=== PATIENT | female | born 1955 | race Caucasian/White ===

== ENCOUNTER 2016-10-08 09:04 | Inpatient (IN) | payer OTHER ==
[~2016-10-08] VITALS: Ht 157.5 cm; Wt 100.4 kg
--- NOTE | ~2016-10-08 | EKG ---
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 LYLE : 1955 Requested By: Jeromy Acosta Order Number: [id number] MD: Brendon Sheikh Measurements Intervals [place] Rate: 71 P: 46 [place]: 176 QRS: -46 QRSD: 107 T: -32 QT: 458 QTc: 498 Interpretive Statements Sinus rhythm Incomplete RBBB and LAFB RSR' in V1 or V2, right VCD or RVH Nonspecific T abnormalities, lateral leads Borderline prolonged QT interval Electronically Signed On 10-09-2016 13:53:27 CDT by Brendon Sheikh [email or web address] <ELECTRONICALLY SIGNED> By: Brendon Sheikh MD 10/09/16 1353 1608 1608 Brendon Sheikh MD /EPI
--- NOTE | ~2016-10-08 | EKG ---
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
--- NOTE | ~2016-10-08 | 2DMMODE ---
[facility] [employer] [address] 2 D/M-MODE ECHOCARDIOGRAM Name: TERI CRUZ Room #: 203-P [facility] IN [facility].#: [id number] Admission: 10/08/16 Attend Phys: Jeromy Acosta, Discharge: Date of : 51 Date of Service: 10/09/16 0951 Report #: [id number] THIS REPORT FOR: //name// APPROVED REPORT Study performed: 10/08/2016 15:09:03 EXAM: Comprehensive 2D, Doppler, and color-flow Echocardiogram Patient Location: Bedside Other Information Study Quality: Technically Difficult Indications Congestive Heart Failure COPD Chest Pain Hypertension/HDD 2D Dimensions RVDd: 41.99 mm LVEF(%): 56.47 (>50%) IVSd: 10.46 (7-11mm) LVOT Diam: 18.61 (18-24mm) LVDd: 67.02 mm PWd: 10.13 (7-11mm) Ascending Ao: 30.12 (22-36mm) LVDs: 46.69 (25-40mm) Aortic Root: 32.07 mm IVC: 25.00 mm Fernandze's LVEF: 56.47 % Volumes Left Atrial Volume (Systole) Single Plane 4CH: 118.32 mL Single Plane 2CH: 123.17 mL LA ESV Index: 64.00 mL/m2 Aortic Valve AoV Peak Moiz.: 1.50 m/s AO Peak Gr.: 9.03 mmHg LVOT Max P.69 mmHg LVOT Max V: 1.08 m/s DAVID Vmax: 1.96 cm2 Mitral Valve E/A Ratio: 1.7 MV Decel. Time: 202.46 ms MV E Max Moiz.: 1.73 m/s MV A Moiz.: 1.01 m/s [facility] [place] [address] 2 D/M-MODE ECHOCARDIOGRAM Name: TERI CRUZ Room #: 203-P [facility] IN M.R.#: [id number] Admission: 10/08/16 Attend Phys: Jeromy Acosta, Discharge: Date of : 51 Date of Service: 10/09/16 0951 Report #: [id number] MV PHT: 58.71 ms IVRT: 65.74 ms Pulmonary Valve PV Peak Moiz.: 1.44 m/s PV Peak Gr.: 8.30 mmHg Pulmonary Vein P Vein S: 0.51 m/s P Vein A: 0.16 m/s P Vein D: 0.67 m/s P Vein A Dur.: 69.2 msec P Vein S/D Ratio: 0.76 Tricuspid Valve TR Peak Moiz.: 4.41 m/s RAP Estimate: 15.00 mmHg TR Peak Gr.: 77.69 mmHg Left Ventricle Left ventricle is dilated. There is normal LV segmental wall motion. There is normal left ventricular wall thickness. Left ventricular systolic function is normal LVEF is 50-55%. The diastolic function is abnormal with increased pressures. Right Ventricle Right ventricle is dilated. The right ventricular systolic function is normal. Atria Left atrium is dilated. Right atrium is dilated. Aortic Valve The aortic valve is normal in structure. No aortic regurgitation is present. There is no aortic valvular stenosis. Mitral Valve Mild mitral leaflet sclerosis Moderate mitral regurgitation. No evidence of mitral valve stenosis. Tricuspid Valve The tricuspid valve is normal in structure. There is moderate tricuspid regurgitation. The right atrial pressure is estimated at 15 mmHg. Severe pulmonary hypertension with PAP estimated at 93 mmHg. Pulmonic Valve The pulmonary valve is normal in structure. Mild pulmonic regurgitation. [address] [address] 2 D/M-MODE ECHOCARDIOGRAM Name: TERI CRUZ Room #: 203-P [facility] IN .R.#: [id number] Admission: 10/08/16 Attend Phys: Jeromy Acosta, Discharge: Date of : 51 Date of Service: 10/09/16 0951 Report #: [id number] Great Vessels The aortic root is normal in size. IVC is dilated and collapses <50% with inspiration. Pericardium There is no pericardial effusion. <Conclusion> Left ventricular systolic function is normal There is normal LV segmental wall motion. LVEF 50-55%. Right ventricle is dilated. Left and right atria are dilated. The aortic valve is normal in structure. No aortic insufficiency or stenosis. Mild mitral leaflet sclerosis Moderate mitral regurgitation. There is moderate tricuspid regurgitation. The right atrial pressure is estimated at 15 mmHg. Severe pulmonary hypertension with PAP estimated at 85-90 mmHg. There is no pericardial effusion. <ELECTRONICALLY SIGNED> By: Floyd Santos MD, [facility] 10/09/1651 0 0 Floyd Santos MD, FACC /INF
[~2016-10-08 09:04] MED LIST: ADVAIR 100-501 EACH INH; ALBUTEROL INH; BUPRENORPHINE HC8 MG PO; EMBEDA 30-1.21 EACH; FLOVENT; LASIX 40 MG TAB40 M1; LOVENOX SC; NAPROSYN250 MG; NEXIUM40 MG; OXYCODONE HCL15 MG PO; PERCOCET 5-3251 EACH PO; PREDNISONE 10 M10 M1 PO; PREDNISONE 20 M20 M1; PREDNISONE50 MG PO; SINGULAIR 10 MG10 M1; SPIRIVA INH; SPIRONOLACTONE25 M1 PO; VERAPAMIL HCL120 M1 PO; XANAX XR1 MG PO; ZANAFLEX4 M1 PO; ZANTAC; ZOPENEX INH
[2016-10-08 09:08] VITALS: BP 176/93
[2016-10-08] MEDS ORDERED: MSL20MG/ML PO (09:29)
[2016-10-08] MEDS ORDERED: MORPHINE SULFAT15 M3 PO (09:30)
[2016-10-08] MEDS ORDERED: DUONEB 2.5-0.5 M3 ML INH (09:31)
[2016-10-08] MEDS ORDERED: MS CONTIN15 MG PO (09:31)
[2016-10-08] MEDS ORDERED: OXYCODONE HCL 55 MG PO (09:32)
[2016-10-08] MEDS ORDERED: ALLERGY RELIEF10 M5 PO (09:33)
[2016-10-08] MEDS ORDERED: LASIX 20 MG TAB20 MG PO (09:33)
[2016-10-08] MEDS ORDERED: HYDROCORTISONE30 G9 TOP (09:34)
[2016-10-08 09:59] LABS: ABG SAMPLE TYPE ARTERIAL; BE(vivo) 2.8 mmol/L (-2 to +3); HCO3 26.6 mmol/L (22.0-26.0); LACTATE 0.93 mmol/L (0.5-2.0); O2(CT) 13.4 mL/dL (15.0-23.0); O2Hb 89.2 % (92.0-98.0); PO2 57.8 mmHg (80.0-100.0); pH 7.463 (7.360-7.450); sO2 91.6 % (92.0-98.0); tCO2 27.8 mmol/L (24.0-30.0)
[2016-10-08 10:00] LABS: STICK SITE L.RADIAL
[2016-10-08 10:18] LABS: HEMATOCRIT 30.6 % (37.0-47.0); HEMOGLOBIN 9.9 gm/dL (12.0-15.0); MCH 24.8 pg (26.0-34.0); MCHC 32.5 g/dL (28.0-37.0); MCV 76.2 fL (80.0-100.0); PLATELET COUNT 218 thou/uL (150-400); RBC 4.01 mil/uL (4.20-5.00); RDW 16.2 % (10.5-14.5); WBC 8.1 thou/uL (4.0-11.0)
[2016-10-08 10:19] LABS: MANUAL DIFF YES
[2016-10-08 10:29] LABS: CALCIUM 8.8 mg/dL (8.5-10.1); CREATININE 1.1 mg/dL (0.6-1.0); POTASSIUM 3.7 mmol/L (3.5-5.1)
[2016-10-08 10:35] LABS: ALBUMIN 3.3 g/dL (3.4-5.0); DIRECT BILIRUBIN 0.2 mg/dL (<0.1-0.3); TOTAL BILIRUBIN 0.8 mg/dL (<0.1-1.0); TOTAL PROTEIN 7.3 g/dL (6.4-8.2)
[2016-10-08 10:35] LABS: URINE BILIRUBIN NEGATIVE (Negative); URINE BLOOD TRACE (Negative); URINE COLOR YELLOW; URINE GLUCOSE-RANDOM* NEGATIVE (Negative); URINE KETONES TRACE (Negative); URINE NITRITE NEGATIVE (Negative); URINE PROTEIN (DIPSTICK) 1+ (Negative)
[2016-10-08 10:38] LABS: ABSOLUTE NEUTROPHILS 6.6 thou/uL (1.4-8.2); PLATELET ESTIMATE NORMAL; TOTAL CELL COUNT 100
[2016-10-08 10:41] LABS: BACTERIA 1-9 Few /HPF (None Seen); CASTS None Seen /LPF (None Seen); CRYSTALS None Seen /LPF (None Seen); SQUAMOUS 0-3 Few /LPF (0-3); URINE RBC None Seen /HPF (0-2); URINE WBC 0-5 Rare /HPF (0-5)
[2016-10-08 11:13] LABS: NT-PRO BRAIN NAT PEPTIDE 14362 pg/mL (<300); TROPONIN-I < 0.04 ng/mL (<0.04-0.07)
[2016-10-08 14:48] VITALS: BP 169/79
[2016-10-08 15:10] VITALS: BP 194/109
[2016-10-08 18:26] VITALS: BP 164/83
[2016-10-08 19:34] VITALS: BP 153/92
[2016-10-09 00:03] VITALS: BP 151/72
[2016-10-09 03:20] VITALS: BP 151/70
[2016-10-09 03:38] LABS: HEMATOCRIT 31.2 % (37.0-47.0); HEMOGLOBIN 10.2 gm/dL (12.0-15.0); MCH 24.4 pg (26.0-34.0); MCHC 32.5 g/dL (28.0-37.0); PLATELET COUNT 249 thou/uL (150-400); RBC 4.16 mil/uL (4.20-5.00); RDW 16.1 % (10.5-14.5); WBC 8.6 thou/uL (4.0-11.0)
[2016-10-09 03:45] LABS: MANUAL DIFF YES
[2016-10-09 04:00] LABS: CALCIUM 8.9 mg/dL (8.5-10.1); CREATININE 1.3 mg/dL (0.6-1.0); POTASSIUM 3.9 mmol/L (3.5-5.1)
[2016-10-09 05:46] LABS: ABSOLUTE NEUTROPHILS 7.7 thou/uL (1.4-8.2); ANISOCYTOSIS 1+; HYPOCHROMASIA SLIGHT; MICROCYTES 1+; TOTAL CELL COUNT 100
[2016-10-09 09:10] VITALS: BP 142/77
[2016-10-09 12:15] VITALS: BP 118/56
[2016-10-09 17:15] VITALS: BP 122/62
[2016-10-09 19:56] VITALS: BP 110/63
[2016-10-09] MEDS ORDERED: PACERONE 200 M200 M1 PO (21:01)
[2016-10-10 04:07] VITALS: BP 130/66
[2016-10-10 08:25] VITALS: BP 91/52
[2016-10-10 12:28] VITALS: BP 103/56
[2016-10-10 16:13] VITALS: BP 106/58
[2016-10-10 19:20] VITALS: BP 93/45
[2016-10-11 03:11] LABS: HEMATOCRIT 31.1 % (37.0-47.0); HEMOGLOBIN 10.2 gm/dL (12.0-15.0); MCH 24.7 pg (26.0-34.0); MCHC 32.6 g/dL (28.0-37.0); MCV 75.7 fL (80.0-100.0); RBC 4.11 mil/uL (4.20-5.00); RDW 16.6 % (10.5-14.5); WBC 13.4 thou/uL (4.0-11.0)
[2016-10-11 03:28] LABS: ALBUMIN 3.4 g/dL (3.4-5.0); CALCIUM 8.2 mg/dL (8.5-10.1); PHOSPHORUS 5.8 mg/dL (2.5-4.9); POTASSIUM 4.1 mmol/L (3.5-5.1)
[2016-10-11 03:31] LABS: CREATININE 3.7 mg/dL (0.6-1.0)
[2016-10-11 03:45] VITALS: BP 87/52
[2016-10-11 08:12] VITALS: BP 99/63
[2016-10-11 12:16] VITALS: BP 107/56
[2016-10-11 16:41] VITALS: BP 94/53
[2016-10-11 19:17] VITALS: BP 96/46
[2016-10-12 03:22] VITALS: BP 93/47
[2016-10-12 04:17] LABS: ALBUMIN 3.5 g/dL (3.4-5.0); PHOSPHORUS 6.3 mg/dL (2.5-4.9); POTASSIUM 4.1 mmol/L (3.5-5.1)
[2016-10-12 04:22] LABS: CREATININE 4.8 mg/dL (0.6-1.0)
[2016-10-12 07:19] VITALS: BP 95/50
[2016-10-12 08:15] LABS: ABG SAMPLE TYPE ARTERIAL; BE(vivo) 1.5 mmol/L (-2 to +3); HCO3 27.9 mmol/L (22.0-26.0); O2(CT) 14.3 mL/dL (15.0-23.0); O2Hb 89.1 % (92.0-98.0); PCO2 52.2 mmHg (35.0-45.0); PO2 60.4 mmHg (80.0-100.0); pH 7.346 (7.360-7.450); sO2 89.5 % (92.0-98.0); tCO2 29.5 mmol/L (24.0-30.0)
[2016-10-12 08:16] LABS: ABG COMMENT OFF BIPAP; STICK SITE R.RADIAL
[2016-10-12] MEDS ORDERED: XANAX1 MG PO (11:11)
[2016-10-12 11:28] VITALS: BP 87/53
[2016-10-12 16:45] VITALS: BP 108/53
[2016-10-12 20:02] VITALS: BP 97/55
[2016-10-13 02:59] LABS: BASOPHILS 0.1 % (0.0-2.0); EOSINOPHILS 0.9 % (0.0-3.0); HEMATOCRIT 30.1 % (37.0-47.0); HEMOGLOBIN 9.7 gm/dL (12.0-15.0); LYMPHOCYTES 13.8 % (24.0-44.0); MCH 24.5 pg (26.0-34.0); MCHC 32.1 g/dL (28.0-37.0); MCV 76.3 fL (80.0-100.0); MONOCYTES 9.3 % (1.0-8.0); PLATELET COUNT 376 thou/uL (150-400); POLYS 75.9 % (36.0-66.0); RBC 3.94 mil/uL (4.20-5.00); RDW 16.4 % (10.5-14.5); WBC 10.5 thou/uL (4.0-11.0)
[2016-10-13 03:13] LABS: CALCIUM 8.1 mg/dL (8.5-10.1); POTASSIUM 4.3 mmol/L (3.5-5.1)
[2016-10-13 03:14] LABS: CREATININE 3.7 mg/dL (0.6-1.0)
[2016-10-13 03:17] LABS: MANUAL DIFF NO
[2016-10-13 04:00] VITALS: BP 92/52
[2016-10-13 07:45] VITALS: BP 103/60
[2016-10-13 16:54] VITALS: BP 133/113
[2016-10-13 19:52] VITALS: BP 90/43
[2016-10-14 02:42] LABS: HEMATOCRIT 27.5 % (37.0-47.0); MCH 24.7 pg (26.0-34.0); MCHC 32.8 g/dL (28.0-37.0); MCV 75.2 fL (80.0-100.0); PLATELET COUNT 344 thou/uL (150-400); RBC 3.66 mil/uL (4.20-5.00); RDW 16.6 % (10.5-14.5); WBC 9.4 thou/uL (4.0-11.0)
[2016-10-14 02:50] LABS: MANUAL DIFF YES
[2016-10-14 02:53] LABS: ALBUMIN 3.1 g/dL (3.4-5.0); CALCIUM 8.4 mg/dL (8.5-10.1); CREATININE 2.4 mg/dL (0.6-1.0); PHOSPHORUS 4.3 mg/dL (2.5-4.9); POTASSIUM 4.2 mmol/L (3.5-5.1)
[2016-10-14 03:14] LABS: ABSOLUTE NEUTROPHILS 6.2 thou/uL (1.4-8.2); PLATELET ESTIMATE NORMAL; TOTAL CELL COUNT 100
[2016-10-14 03:31] VITALS: BP 84/41
[2016-10-14 07:21] VITALS: BP 90/48
[2016-10-14 08:43] LABS: ABG SAMPLE TYPE ARTERIAL; BE(vivo) -0.1 mmol/L (-2 to +3); HCO3 25.4 mmol/L (22.0-26.0); LACTATE 1.93 mmol/L (0.5-2.0); O2(CT) 13.9 mL/dL (15.0-23.0); O2Hb 92.7 % (92.0-98.0); PCO2 45.4 mmHg (35.0-45.0); PO2 68.4 mmHg (80.0-100.0); STICK SITE L.RADIAL; pH 7.366 (7.360-7.450); sO2 93.1 % (92.0-98.0); tCO2 26.8 mmol/L (24.0-30.0)
[2016-10-14 12:08] VITALS: BP 93/35
[2016-10-14 19:38] VITALS: BP 119/54
[2016-10-15 03:25] LABS: HEMATOCRIT 30.3 % (37.0-47.0); HEMOGLOBIN 9.8 gm/dL (12.0-15.0); MCH 24.7 pg (26.0-34.0); MCHC 32.3 g/dL (28.0-37.0); MCV 76.6 fL (80.0-100.0); RBC 3.96 mil/uL (4.20-5.00); RDW 16.4 % (10.5-14.5); WBC 10.3 thou/uL (4.0-11.0)
[2016-10-15 03:30] VITALS: BP 97/42
[2016-10-15 03:35] LABS: CALCIUM 8.7 mg/dL (8.5-10.1); CREATININE 1.8 mg/dL (0.6-1.0); POTASSIUM 4.3 mmol/L (3.5-5.1)
[2016-10-15 07:25] VITALS: BP 107/50
[2016-10-15 12:00] VITALS: BP 111/52
[2016-10-15 12:33] VITALS: BP 107/50
[2016-10-15 15:40] VITALS: BP 108/70
[2016-10-15 19:30] VITALS: BP 98/47
[2016-10-16 03:30] LABS: HEMATOCRIT 28.4 % (37.0-47.0); HEMOGLOBIN 8.9 gm/dL (12.0-15.0); MCH 24.3 pg (26.0-34.0); MCHC 31.2 g/dL (28.0-37.0); MCV 77.8 fL (80.0-100.0); RBC 3.65 mil/uL (4.20-5.00); RDW 16.9 % (10.5-14.5); WBC 8.6 thou/uL (4.0-11.0)
[2016-10-16 03:41] LABS: CALCIUM 8.7 mg/dL (8.5-10.1); CREATININE 1.4 mg/dL (0.6-1.0); POTASSIUM 4.7 mmol/L (3.5-5.1)
[2016-10-16 04:10] VITALS: BP 109/59
[2016-10-16 09:00] VITALS: BP 108/47
[2016-10-16 13:25] VITALS: BP 96/42
[2016-10-16 18:00] VITALS: BP 114/51
[2016-10-16 19:18] VITALS: BP 131/67
[2016-10-17 04:24] VITALS: BP 113/63
[2016-10-17 07:20] VITALS: BP 109/52
[2016-10-17] MEDS ORDERED: MS CONTIN 60 MG60 M1 PO (07:21)
[2016-10-17] MEDS ORDERED: OXYCODONE HCL 55 MG PO (07:21)
[2016-10-17] MEDS ORDERED: ELIQUIS5 MG PO (07:21)
[2016-10-17] MEDS ORDERED: SINGULAIR 10 MG10 M1 PO (07:21)
[2016-10-17] MEDS ORDERED: PREDNISONE 20 M20 M1 PO (07:25)
[2016-10-17 08:03] VITALS: BP 107/50
== END 2016-10-17 11:45 | disposition home health service (06) | DRG 177 ==
LOC: ER 09:04 → EROBS 11:38 → 2N 11:38
PROVIDERS: Family Medicine; Hospitalist; Internal Medicine Pulmonary Disease; Nurse Practitioner
PROC: 5A09557 Assistance with Respiratory Ventilation, Greater than 96 Consecutive Hours, Continuous Positive Airway Pressure (ICD-10-PCS; principal; 2016-10-08)
DX: J69.0 Pneumonitis due to inhalation of food and vomit (principal); I50.31 Acute diastolic (congestive) heart failure; J96.00 Acute respiratory failure, unspecified whether with hypoxia or hypercapnia; N17.9 Acute kidney failure, unspecified; J44.1 Chronic obstructive pulmonary disease with (acute) exacerbation; E44.1 Mild protein-calorie malnutrition; Z68.41 Body mass index [BMI] 40.0-44.9, adult; I11.0 Hypertensive heart disease with heart failure; Z96.652 Presence of left artificial knee joint; D64.9 Anemia, unspecified; G89.29 Other chronic pain; K21.9 Gastro-esophageal reflux disease without esophagitis; G47.33 Obstructive sleep apnea (adult) (pediatric); I48.91 Unspecified atrial fibrillation; I27.2 Other secondary pulmonary hypertension; D72.829 Elevated white blood cell count, unspecified; I95.9 Hypotension, unspecified; E66.9 Obesity, unspecified; Z83.3 Family history of diabetes mellitus; Z82.49 Family history of ischemic heart disease and other diseases of the circulatory system; Z99.81 Dependence on supplemental oxygen; Z90.49 Acquired absence of other specified parts of digestive tract; Z90.710 Acquired absence of both cervix and uterus; Z88.8 Allergy status to other drugs, medicaments and biological substances; Z88.2 Allergy status to sulfonamides
CPT/HCPCS: 10081

== ENCOUNTER → 2016-10-23 | Outpatient (CLI) | payer OTHER ==
[~2016-10-23] MED LIST changes: +ALLERGY RELIEF10 M5 PO; +DUONEB 2.5-0.5 M3 ML INH; +ELIQUIS5 MG PO; +HYDROCORTISONE30 G9 TOP; +LASIX 20 MG TAB20 MG PO; +MORPHINE SULFAT15 M3 PO; +MS CONTIN 60 MG60 M1 PO; +MS CONTIN15 MG PO; +MSL20MG/ML PO; +OXYCODONE HCL 55 MG PO; +PACERONE 200 M200 M1 PO; +PREDNISONE 20 M20 M1 PO; +SINGULAIR 10 MG10 M1 PO; +XANAX1 MG PO
== END ==
LOC: RAD 10:57
DX: J90 Pleural effusion, not elsewhere classified (principal); R06.02 Shortness of breath

== ENCOUNTER 2016-10-27 15:28 | Emergency (ER) | payer OTHER ==
[~2016-10-27] VITALS: Ht 157.5 cm; Wt 88.5 kg
--- NOTE | ~2016-10-27 | EKG ---
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: Mohan TEJEDA : 1955 Requested By: Klaus Carrera Order Number: [id number] MD: Floyd Santos Measurements Intervals [place] Rate: 60 P: 57 [place]: 163 QRS: -35 QRSD: 113 T: 37 QT: 499 QTc: 499 Interpretive Statements Sinus rhythm Atrial premature complexes Probable left atrial enlargement Incomplete right bundle branch block Borderline prolonged QT interval Compared to ECG 10/08/2016 16:08:08 Atrial premature complex(es) now present Electronically Signed On 10-28-2016 8:33:02 CDT by Floyd Santos [email or web address] <ELECTRONICALLY SIGNED> By: Floyd Santos MD, [facility] 10/28/16 0833 10 10 Floyd Santos MD, [facility] /EPI
[2016-10-27 17:01] LABS: HEMATOCRIT 34.2 % (37.0-47.0); HEMOGLOBIN 10.9 gm/dL (12.0-15.0); MCH 23.8 pg (26.0-34.0); MCHC 31.9 g/dL (28.0-37.0); MCV 74.6 fL (80.0-100.0); PLATELET COUNT 232 thou/uL (150-400); RBC 4.59 mil/uL (4.20-5.00); RDW 17.3 % (10.5-14.5); WBC 11.8 thou/uL (4.0-11.0)
[2016-10-27 17:02] LABS: MANUAL DIFF YES
[2016-10-27 17:19] LABS: URINE BILIRUBIN NEGATIVE (Negative); URINE BLOOD NEGATIVE (Negative); URINE COLOR YELLOW; URINE GLUCOSE-RANDOM* NEGATIVE (Negative); URINE KETONES NEGATIVE (Negative); URINE LEUKOCYTES-REFLEX NEGATIVE (Negative); URINE PROTEIN (DIPSTICK) 1+ (Negative); URINE UROBILINOGEN 0.2 E.U./dl (0.2-1.0)
[2016-10-27 17:37] LABS: CASTS None Seen /LPF (None Seen); CRYSTALS None Seen /LPF (None Seen); SQUAMOUS 0-3 Few /LPF (0-3); URINE RBC None Seen /HPF (0-2); URINE WBC-REFLEX None Seen /HPF (0-5)
[2016-10-27 17:40] LABS: ABSOLUTE NEUTROPHILS 9.7 thou/uL (1.4-8.2); ANISOCYTOSIS 1+; HYPOCHROMASIA 1+; MICROCYTES 1+; POIKILOCYTOSIS 1+; TOTAL CELL COUNT 100
[2016-10-27 17:41] LABS: OVALOCYTES 1+; POLYCHROMASIA OCCASIONAL
[2016-10-27 17:46] LABS: CREATININE 1.2 mg/dL (0.6-1.0); POTASSIUM 4.5 mmol/L (3.5-5.1)
[2016-10-27 17:47] LABS: ALBUMIN 3.5 g/dL (3.4-5.0); TOTAL BILIRUBIN 0.5 mg/dL (<0.1-1.0); TOTAL PROTEIN 7.2 g/dL (6.4-8.2)
[2016-10-27] MEDS ORDERED: REGLAN 10 MG TA10 MG PO (18:03)
[2016-10-27] MEDS ORDERED: NORCO 5-325 TA1 EACH PO (18:25)
== END 2016-10-27 18:30 | disposition home or self-care (01) ==
LOC: ER 15:28
PROVIDERS: Physician Assistant
DX: R11.2 Nausea with vomiting, unspecified (principal); G89.29 Other chronic pain; I12.9 Hypertensive chronic kidney disease with stage 1 through stage 4 chronic kidney disease, or unspecified chronic kidney disease; N18.9 Chronic kidney disease, unspecified; J44.9 Chronic obstructive pulmonary disease, unspecified; Z96.652 Presence of left artificial knee joint; Z90.49 Acquired absence of other specified parts of digestive tract; Z90.710 Acquired absence of both cervix and uterus; Z88.2 Allergy status to sulfonamides

== ENCOUNTER → 2016-10-30 | Outpatient (CLI) | payer OTHER ==
[~2016-10-30] MED LIST changes: +NORCO 5-325 TA1 EACH PO; +REGLAN 10 MG TA10 MG PO
== END ==
LOC: SLEEPLAB 16:05
DX: G47.33 Obstructive sleep apnea (adult) (pediatric) (principal)

== ENCOUNTER → 2016-11-06 | Outpatient (CLI) | payer OTHER | LOC: RAD 09:22 | DX: R06.02 Shortness of breath (principal); R06.09 Other forms of dyspnea ==

== ENCOUNTER → 2016-12-07 | Outpatient (CLI) | payer OTHER | LOC: SLEEPLAB 11:05 | DX: G47.33 Obstructive sleep apnea (adult) (pediatric) (principal) ==

== ENCOUNTER 2016-12-29 16:00 | Emergency (ER) | payer OTHER ==
[~2016-12-29] VITALS: Ht 157.5 cm; Wt 81.7 kg
[2016-12-29] MEDS ORDERED: PACERONE 200 M200 M1 PO (16:48)
[2016-12-29] MEDS ORDERED: OXYCODONE HCL 55 MG PO (16:56)
== END 2016-12-29 17:15 | disposition home or self-care (01) ==
LOC: ER 16:00
DX: M25.572 Pain in left ankle and joints of left foot (principal); I10 Essential (primary) hypertension; J44.9 Chronic obstructive pulmonary disease, unspecified; Z90.710 Acquired absence of both cervix and uterus; Z88.2 Allergy status to sulfonamides

== ENCOUNTER → 2017-01-14 | Outpatient (CLI) | payer OTHER | LOC: CAT 01-07 10:05 | DX: S82.892K Other fracture of left lower leg, subsequent encounter for closed fracture with nonunion (principal); X58.XXXD Exposure to other specified factors, subsequent encounter; Y93.89 Activity, other specified; Y92.89 Other specified places as the place of occurrence of the external cause; Y99.8 Other external cause status ==

== ENCOUNTER 2017-05-20 14:50 | Emergency (ER) | payer OTHER ==
[~2017-05-20] VITALS: Ht 157.5 cm; Wt 81.7 kg
--- NOTE | ~2017-05-20 | EKG ---
[place] [address] [facility] [place] [place] [address] ELECTROCARDIOGRAM REPORT Name: TERI CRUZ 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: [facility] : 1955 Requested By: Karishma Jurado Order Number: [id number] MD: Floyd Santos Measurements Intervals [place] Rate: 63 P: 33 [place]: 149 QRS: -16 QRSD: 114 T: 22 QT: 476 QTc: 488 Interpretive Statements Sinus rhythm Probable left atrial enlargement Borderline prolonged QT interval Compared to ECG 10/27/2016 16:11:24 Atrial premature complex(es) no longer present anterior T wave abnormality less prominent Electronically Signed On 05-20-2017 17:24:07 EXCHANGE OPERATOR by Floyd Santos [email or web address] <ELECTRONICALLY SIGNED> By: Floyd Santos MD, [facility] 05/20/17 1724 1549 1549 Floyd Santos MD, [facility] /EPI
[2017-05-20] MEDS ORDERED: CARDIZEM CD180 MG PO (15:33)
[2017-05-20 15:45] LABS: ABSOLUTE NEUTROPHILS 3.9 thou/uL (1.4-8.2); BASOPHILS 1.1 % (0.0-2.0); EOSINOPHILS 6.3 % (0.0-3.0); HEMATOCRIT 37.1 % (37.0-47.0); HEMOGLOBIN 12.2 gm/dL (12.0-15.0); LYMPHOCYTES 26.4 % (24.0-44.0); MCH 25.4 pg (26.0-34.0); MCV 76.9 fL (80.0-100.0); MONOCYTES 9.8 % (1.0-8.0); PLATELET COUNT 231 thou/uL (150-400); POLYS 56.4 % (36.0-66.0); RBC 4.82 mil/uL (4.20-5.00); RDW 16.6 % (10.5-14.5)
[2017-05-20 15:53] LABS: ANION GAP 8 mmol/L (7-16); BUN 25 mg/dL (7-18); CALCIUM 9.3 mg/dL (8.5-10.1); CHLORIDE 103 mmol/L (98-107); CO2 26 mmol/L (21-32); CREATININE 1.4 mg/dL (0.6-1.0); GLUCOSE 83 mg/dL (74-106); POTASSIUM 4.4 mmol/L (3.5-5.1); SODIUM 137 mmol/L (136-145)
[2017-05-20 16:03] LABS: SGOT 20 U/L (15-37); SGPT 35 U/L (30-65); TOTAL BILIRUBIN 0.3 mg/dL (<0.1-1.0); TOTAL PROTEIN 7.8 g/dL (6.4-8.2); TROPONIN-I < 0.04 ng/mL (<0.06)
[2017-05-20] MEDS ORDERED: HYDROCODONE-AP1 EAC6 PO (16:41)
[2017-05-20 16:58] VITALS: BP 153/66
[2017-09-22] MEDS ORDERED: SINGULAIR 10 MG10 M1 PO (10:10)
[2017-09-22] MEDS ORDERED: NYAMYC15 GM TOP (10:10)
[2017-09-22] MEDS ORDERED: ALBUTEROL2.5 MG/31 INH (10:11)
[2017-09-22] MEDS ORDERED: NEXIUM40 MG PO (10:11)
[2017-09-22] MEDS ORDERED: FLONASE 0.05%50 MCG NASAL (10:11)
[2017-09-22] MEDS ORDERED: LISINOPRIL10 MG PO (10:11)
[2017-09-22] MEDS ORDERED: MORPHINE SULFAT15 M3 PO (11:29)
[2017-09-22] MEDS ORDERED: MS CONTIN15 MG PO (11:33)
[2017-10-20] MEDS ORDERED: MORPHINE SULFAT15 M3 PO (09:50)
[2017-10-20] MEDS ORDERED: MS CONTIN15 MG PO (11:12)
[2017-11-17] MEDS ORDERED: MS CONTIN15 MG PO (10:42)
[2017-11-17] MEDS ORDERED: PANTOPRAZOLE SO20 MG PO (10:54)
[2017-12-02] MEDS ORDERED: ELIQUIS5 MG PO (09:23)
[2017-12-02] MEDS ORDERED: CARDIZEM60 MG PO (12:02)
[2017-12-06] MEDS ORDERED: MIRALAX17 GM PO (13:19)
[2017-12-06] MEDS ORDERED: COZAAR 25 MG TA25 M1 PO (13:19)
[2017-12-06] MEDS ORDERED: CARAFATE 11 GM/10 M1 PO (13:20)
[2017-12-15] MEDS ORDERED: CARAFATE 1 GM TA1 G1 PO (09:00)
[2017-12-15] MEDS ORDERED: MIRALAX17 GM PO (09:01)
[2017-12-15] MEDS ORDERED: COZAAR 25 MG TA25 M1 PO (09:02)
[2017-12-15] MEDS ORDERED: MS CONTIN15 MG PO (09:13)
[2018-02-02] MEDS ORDERED: PACERONE 200 M200 M1 PO (10:40)
[2018-02-02] MEDS ORDERED: XANAX1 MG PO (10:41)
[2018-02-02] MEDS ORDERED: MS CONTIN15 MG PO (11:01)
== END 2017-05-20 17:01 | disposition home or self-care (01) ==
LOC: ER 14:50
PROVIDERS: Physician Assistant
DX: G89.29 Other chronic pain (principal); M25.572 Pain in left ankle and joints of left foot; R60.0 Localized edema; I10 Essential (primary) hypertension; F17.210 Nicotine dependence, cigarettes, uncomplicated; J44.9 Chronic obstructive pulmonary disease, unspecified; Z90.49 Acquired absence of other specified parts of digestive tract; Z88.2 Allergy status to sulfonamides

== ENCOUNTER 2017-08-28 23:32 | Emergency (ER) | payer OTHER ==
[~2017-08-28] VITALS: Ht 157.5 cm; Wt 84.8 kg
--- NOTE | ~2017-08-28 | EKG ---
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
[~2017-08-28 23:32] MED LIST changes: +CARDIZEM CD180 MG PO; +HYDROCODONE-AP1 EAC6 PO
[2017-08-29 01:12] LABS: ABSOLUTE NEUTROPHILS 6.3 thou/uL (1.4-8.2); BASOPHILS 0.7 % (0.0-2.0); EOSINOPHILS 1.4 % (0.0-3.0); HEMATOCRIT 41.6 % (37.0-47.0); HEMOGLOBIN 13.9 gm/dL (12.0-15.0); MCH 25.9 pg (26.0-34.0); MCHC 33.4 g/dL (28.0-37.0); MCV 77.4 fL (80.0-100.0); MONOCYTES 10.4 % (1.0-8.0); PLATELET COUNT 174 thou/uL (150-400); POLYS 68.5 % (36.0-66.0); RBC 5.37 mil/uL (4.20-5.00); RDW 15.8 % (10.5-14.5); WBC 9.1 thou/uL (4.0-11.0)
[2017-08-29 01:18] LABS: ANION GAP 7 mmol/L (7-16); BUN 18 mg/dL (7-18); CHLORIDE 103 mmol/L (98-107); CO2 27 mmol/L (21-32); CREATININE 1.5 mg/dL (0.6-1.0); GLUCOSE 91 mg/dL (74-106); POTASSIUM 4.4 mmol/L (3.5-5.1); SODIUM 137 mmol/L (136-145)
[2017-08-29 01:28] LABS: TROPONIN-I < 0.04 ng/mL (<0.06)
[2017-08-29] MEDS ORDERED: LEVAQUIN 750 M750 MG PO (04:56)
[2017-08-29] MEDS ORDERED: GUAIFEN-CODEINE10 ML PO (05:00)
== END 2017-08-29 05:46 | disposition home or self-care (01) ==
LOC: ER 23:32
PROVIDERS: Emergency Medicine
DX: H66.91 Otitis media, unspecified, right ear (principal); J18.9 Pneumonia, unspecified organism; J02.9 Acute pharyngitis, unspecified; R10.9 Unspecified abdominal pain; F17.210 Nicotine dependence, cigarettes, uncomplicated; J44.9 Chronic obstructive pulmonary disease, unspecified; I48.91 Unspecified atrial fibrillation; I11.0 Hypertensive heart disease with heart failure; I50.9 Heart failure, unspecified; Z90.89 Acquired absence of other organs; Z88.1 Allergy status to other antibiotic agents

== ENCOUNTER → 2017-09-22 | Outpatient (CLI) | payer OTHER ==
[~2017-09-22] VITALS: Ht 157.5 cm; Wt 88.5 kg
[~2017-09-22] MED LIST changes: +ALBUTEROL2.5 MG/31 INH; +FLONASE 0.05%50 MCG NASAL; +GUAIFEN-CODEINE10 ML PO; +LEVAQUIN 750 M750 MG PO; +LISINOPRIL10 MG PO; +NEXIUM40 MG PO; +NYAMYC15 GM TOP
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
[2017-09-22 10:09] VITALS: BP 132/102
== END ==
LOC: PAIN 09-01 11:10
DX: I10 Essential (primary) hypertension (principal); M19.071 Primary osteoarthritis, right ankle and foot; M17.11 Unilateral primary osteoarthritis, right knee; E11.9 Type 2 diabetes mellitus without complications; J44.9 Chronic obstructive pulmonary disease, unspecified; I48.91 Unspecified atrial fibrillation; M54.5 Low back pain; M25.572 Pain in left ankle and joints of left foot; K21.9 Gastro-esophageal reflux disease without esophagitis; M79.7 Fibromyalgia; G43.909 Migraine, unspecified, not intractable, without status migrainosus; F41.9 Anxiety disorder, unspecified; G47.30 Sleep apnea, unspecified; J30.9 Allergic rhinitis, unspecified; M25.562 Pain in left knee; M25.561 Pain in right knee

== ENCOUNTER → 2017-10-20 | Outpatient (CLI) | payer OTHER ==
[~2017-10-20] VITALS: Ht 157.5 cm; Wt 96.2 kg
--- NOTE | ~2017-10-20 | HPC ---
[facility] [place]in [place] [address] PAIN MANAGEMENT CONSULTATION Name: TERI CRUZ Room #: REG RONY Gabriella#: [id number] Admission: 10/20/17 Attend Phys: Jeromy Foley DO Discharge: Date of : 51 Report #: [id number] THIS REPORT FOR: //name// CC: Jeromy Singh Referring Physician DATE OF SERVICE: 10/20/2017 CHIEF COMPLAINT: Low back pain, left knee pain, left ankle pain, right knee pain. HISTORY OF PRESENT ILLNESS: As you know, the patient is a 62-year-old female who is referred to the pain clinic for a temporary opioid management prior to surgery. The patient has undergone ablation of her ectopic pacemaker leading to atrial fibrillation. Assuming this is successful, the patient will be coming off of her anticoagulants to begin surgical options. We have been requested to provide analgesia for the next month to month and a half awaiting surgery. The patient was seen by my partner, Dr. Rajinder Rajput, who provided the patient MS Contin 15 mg twice a day for baseline pain control. She returns today in followup visit for medication management. Despite the use of medication, pain intensity is exactly the same as it was, 10/19. She returns. When questioned about medication, states that it does provide benefit though her pain impact score would indicate no improvement. She returns requesting refill of medications for the next month. ALLERGIES: SULFA. CURRENT MEDICATIONS: MS Contin 15 mg twice a day, omeprazole 40 mg per day, lisinopril 10 mg per day, fluticasone 2 sprays each nostril per day, albuterol 2 puffs q.4 hours p.r.n., montelukast sodium 10 mg per day, nystatin powder apply topically as needed, diltiazem 180 mg twice a day, amiodarone 200 mg 2 tabs twice a day, Eliquis 5 mg per day, alprazolam 1 mg 3 times a day, ipratropium bromide 4 times a day, Advair 100/50 twice a day. SOCIAL HISTORY: The patient smokes, reports she discontinued yesterday. Denies IV or illicit drug use. Denies any chronic alcohol use. She is unemployed and on disability, and has been so for 10 years. She is unaccompanied today. IMAGING: There is no new imaging available. PQRS: The patient has osteoarthritis of the bilateral knees and low back. No rheumatoid arthritis. She is a fall risk, but has not had a fall in the last 3 months. She is on blood thinners in the form of Eliquis. She is treated for hypertension. She has not been on opioids for greater than 6 weeks. She has moderate potential for opioid abuse. Functional [place] [address] PAIN MANAGEMENT CONSULTATION Name: TERI CRUZ Room #: REG RONY Quiroz#: [id number] Admission: 10/20/17 Attend Phys: Jeromy Foley DO Discharge: Date of : 51 Report #: [id number] impact score of 42/70, moderate to severe. PHYSICAL EXAMINATION: VITAL SIGNS: Blood pressure 156/89, pulse is 75, respiratory rate 22, unlabored. The patient is 99% on room air. Height 5 feet 2 inches tall, weight 212 pounds, BMI calculated 38.8. GENERAL: Well-developed, well-nourished, well-hydrated, class 3, morbidly obese 62-year-old female, appears older than stated age, smells of tobacco smoke, somewhat disheveled today. HEENT: Normocephalic, atraumatic. Pupils equal, round, reactive to light. Extraocular muscles are intact. EXTREMITIES: Show no clubbing, no cyanosis, no edema. MUSCULOSKELETAL: The patient has difficulty with standing and walking about the room. She has pain located in the left foot with definitive gross changes to the ankle itself. Well-healed surgical scar over the medial portion and lateral portion of that ankle. There is a scar over the left knee, which appears to be weeping and excoriated. ASSESSMENT: 1. Chronic left ankle pain. 2. Bilateral knee pain secondary to osteoarthritis. 3. Chronic low back pain. PLAN: 1. The patient has returned today in followup visit requesting refill on medications provided by Dr. Luis Rajput in the form of MS Contin 15 mg twice a day. The patient was started on this medication for pain level that she was indicating as 7/10. Interestingly, the patient returns today on these medications indicating pain score of 7/10. This would indicate to this physician that these medications are not very effective for pain control. Certainly, escalating doses would not make a clinical sense at this point as the patient will be undergoing surgery hopefully in the next month and weaning off these medications entirely. We have recommended continuation of MS Contin at this dosing regimen for the next month with plans to wean off the medication once surgeries are initiated. 2. We applaud the patient for discontinuing smoking yesterday. She will need to remain a nonsmoker throughout treatment with [facility] as this is required to maintain opioid management. 3. The patient will return to our clinic in 30 days, see Dr. Luis Rajput for continuation of medication therapy and hopeful weaning of opioids soon after surgery has been initiated. By: 1010 1403 Jeromy Foley DO /clemencia
[2017-10-20 09:35] VITALS: BP 156/89
== END ==
LOC: PAIN 07:47
DX: M17.4 Other bilateral secondary osteoarthritis of knee (principal); G89.29 Other chronic pain; M25.572 Pain in left ankle and joints of left foot; M54.5 Low back pain

== ENCOUNTER → 2017-11-24 | Outpatient (CLI) | payer OTHER ==
[~2017-11-24] MED LIST changes: +PANTOPRAZOLE SO20 MG PO
== END ==
LOC: RAD 11:23
DX: J44.9 Chronic obstructive pulmonary disease, unspecified (principal); I51.7 Cardiomegaly; J98.4 Other disorders of lung; R91.1 Solitary pulmonary nodule; Z96.652 Presence of left artificial knee joint

== ENCOUNTER 2018-01-04 09:10 | Inpatient (IN) | payer OTHER ==
[2018-01-04] VITALS (11 sets, daily range): BP systolic 153–194; BP diastolic 92–122
[~2018-01-04] VITALS: Ht 157.5 cm; Wt 98.0 kg
--- NOTE | ~2018-01-04 | EKG ---
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
--- NOTE | ~2018-01-04 | EKG ---
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
--- NOTE | ~2018-01-04 | HC ---
[facility] [place] [address] CONSULTATION Name: TERI CRUZ Room #: 206-P [facility] IN M.R.#: [id number] Admission: 01/04/18 Attend Phys: Bart Gil MD Discharge: 01/08/18 Date of : 51 Report #: [id number] THIS REPORT FOR: //name// CC: Bart Singh REASON FOR CONSULTATION: Elevated creatinine. REASON FOR PRESENTATION: Headache and hiccups. HISTORY OF PRESENT ILLNESS: A 62-year-old with extensive past medical history including and not limited to hypertension, AFib. She presented on the with the above-mentioned symptoms and was found to have blood pressure reading of 191/120. 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 She had extensive past medical and cardiac history including and not limited to atrial fibrillation, pulmonary hypertension, COPD. At one point, she was admitted to [facility] and after a procedure, she went into acute kidney injury and required what was described as hemodialysis. On presentation to the Emergency Room, a few days ago, she had a creatinine of 1.5, this had risen to 3.4. I am being consulted to manage her acute kidney injury. PAST MEDICAL HISTORY: 1. Remote history of hypertension, atrial fibrillation, COPD, chronic pain, left knee replacement, right rotator cuff surgery, open heart surgery, left ankle surgery, left knee surgery, bilateral carpal tunnel surgeries. 2. Hysterectomy. 3. COPD. 4. 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 5. Appendectomy. FAMILY HISTORY: Diabetes mellitus and hypertension. SOCIAL HISTORY: Denies drug or alcohol abuse. Lives with her friend. MEDICATIONS: 1. Eliquis. 2. Amiodarone. 3. Diltiazem. 4. Albuterol. 5. Pantoprazole. 6. Sucralfate. REVIEW OF SYSTEMS: GENERAL: No fever or chills. CARDIOVASCULAR: No chest pain or palpitation. PULMONARY: No cough or hemoptysis. [facility] [address] [place] [address] CONSULTATION Name: TERI CRUZ CANDACE Room #: 206-[facility] IN M.R.#: [id number] Admission: 01/04/18 Attend Phys: Bart Gil MD Discharge: 01/08/18 Date of : 51 Report #: [id number] GASTROINTESTINAL: As per the history of present illness. GENITOURINARY: No frequency, no urgency. MUSCULOSKELETAL: As per the history of present illness: PHYSICAL EXAMINATION: GENERAL: She is alert, oriented, in no apparent distress. VITAL SIGNS: Pulse rate 72, blood pressure 102/47. HEAD AND NECK: No jugular venous distention, no bruit, no thyromegaly. CHEST: Decreased air entry bilaterally. CARDIOVASCULAR: No rub detected. ABDOMEN: Soft, nontender with no hepatosplenomegaly. LOWER EXTREMITIES: No edema. Scars from her previous surgeries. LABORATORY DATA: Reviewed. Low MCV notes down her CBC. Sodium is 132, BUN is 33, creatinine is 1.9. Renal ultrasound, normal. Chest x-ray with no acute abnormality. ASSESSMENT, IMPRESSION AND PLAN: 1. Acute kidney injury due to aggressive blood pressure reduction. 2. Hypertensive urgency. 3. Atrial fibrillation. 4. Issues with noncompliance. 5. Chronic obstructive pulmonary disease. 6. Remote history of acute kidney injury, requiring dialysis. 7. From the renal perspective, her creatinine is back, trending down now. Her acute kidney injury was due to aggressive blood pressure reduction. 8. Discontinue IV fluids. 9. Watch blood pressure. 10. Ideally should be on hydrochlorothiazide-containing regimen, and angiotensin converting enzyme inhibitor or an angiotensin receptor alisa; an agent for her atrial fibrillation including calcium channel alisa or beta alisa, we will defer the management of those medications to her primary team and Cardiology. <ELECTRONICALLY SIGNED> By: Keyon Rainey MD 01/22/18 0557 0902 1202 Keyon Rainey MD /nt
--- NOTE | ~2018-01-04 | 2DMMODE ---
[facility] [address] [place] [address] 2 D/M-MODE ECHOCARDIOGRAM Name: TERI CRUZ Room #: 206-P ADM IN M.R.#: [id number] Admission: 01/04/18 Attend Phys: Bart Gil MD Discharge: Date of : 51 Date of Service: 01/06/18 1436 Report #: [id number] THIS REPORT FOR: //name// APPROVED REPORT Study performed: 01/06/2018 13:48:21 EXAM: Comprehensive 2D, Doppler, and color-flow Echocardiogram Patient Location: Echo lab Room #: [facility] Status: routine BSA: 1.92 HR: 95 bpm BP: 98/59 mmHg Rhythm: Irregular Other Information Study Quality: Adequate Indications Atrial Fibrillation Hx: CHF, Afib, HTN, COPD 2D Dimensions RVDd: 39.71 mm IVSd: 13.22 (7-11mm) LVOT Diam: 19.74 (18-24mm) LVDd: 52.34 mm PWd: 13.13 (7-11mm) Ascending Ao: 33.62 (22-36mm) LVDs: 31.62 (25-40mm) Aortic Root: 34.70 mm Volumes Left Atrial Volume (Systole) Single Plane 4CH: 87.97 mL Single Plane 2CH: 73.76 mL LA ESV Index: 44.00 mL/m2 Aortic Valve AoV Peak Moiz.: 1.77 m/s AO Peak Gr.: 12.53 mmHg LVOT Max P.88 mmHg LVOT Max V: 1.49 m/s DAVID Vmax: 2.57 cm2 Mitral Valve MV Decel. Time: 262.96 ms MV E Max Moiz.: 1.18 m/s [facility] [address] [place] [address] 2 D/M-MODE ECHOCARDIOGRAM Name: TERI CRUZ [facility] Room #: [address] [place] [address] IN ..#: [id number] Admission: 01/04/18 Attend Phys: Bart Gil MD Discharge: Date of : 51 Date of Service: 01/06/18 1436 Report #: [id number] IVRT: 62.28 ms Pulmonary Valve PV Peak Moiz.: 0.97 m/s PV Peak Gr.: 3.79 mmHg Tricuspid Valve TR Peak Moiz.: 2.94 m/s TR Peak Gr.: 34.53 mmHg Left Ventricle The left ventricle is normal size. There is normal LV segmental wall motion. Mild concentric left ventricular hypertrophy. Left ventricular systolic function is normal. LVEF is 60-65%. This study is not technically sufficient to allow evaluation of the LV diastolic function. Right Ventricle The right ventricle is normal size. The right ventricular systolic function is normal. Atria Left atrium is moderately dilated. Right atrium is mildly dilated. Aortic Valve The aortic valve is normal in structure. No aortic regurgitation is present. There is no aortic valvular stenosis. Mitral Valve Mitral valve leaflets are mildly thickened. Mild to moderate mitral regurgitation. No evidence of mitral valve stenosis. Tricuspid Valve The tricuspid valve is normal in structure. Mild to moderate tricuspid regurgitation. Estimated PAP is 35mmHg plus the right atrial pressure. Pulmonic Valve The pulmonary valve is normal in structure. Trace pulmonic regurgitation. Great Vessels The aortic root is normal in size. The ascending aorta is normal in size. IVC is not well visualized. Pericardium [address] [address] 2 D/M-MODE ECHOCARDIOGRAM Name: TERI CRUZ Room #: 206-P ADM IN M.R.#: [id number] Admission: 01/04/18 Attend Phys: Bart Gil MD Discharge: Date of : 51 Date of Service: 01/06/18 1436 Report #: [id number] There is no pericardial effusion. <Conclusion> The left ventricle is normal size. Mild concentric left ventricular hypertrophy. Left ventricular systolic function is normal. The right ventricle is normal size. Left atrium is moderately dilated. Right atrium is mildly dilated. The aortic valve is normal in structure. Mild to moderate mitral regurgitation. Mild to moderate tricuspid regurgitation. Estimated PAP is 35mmHg plus the right atrial pressure. <ELECTRONICALLY SIGNED> By: Carl Jones MD 01/06/18 1436 1436 143 Carl Jones MD /INF
--- NOTE | ~2018-01-04 | EKG ---
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
[~2018-01-04 09:10] MED LIST changes: +CARAFATE 1 GM TA1 G1 PO; +CARAFATE 11 GM/10 M1 PO; +CARDIZEM60 MG PO; +COZAAR 25 MG TA25 M1 PO; +MIRALAX17 GM PO
[2018-01-04] MEDS ORDERED: ELIQUIS5 MG PO (09:25)
[2018-01-04] MEDS ORDERED: XANAX1 MG PO (09:25)
[2018-01-04 10:20] LABS: ABSOLUTE NEUTROPHILS 7.6 thou/uL (1.4-8.2); EOSINOPHILS 0.4 % (0.0-3.0); HEMATOCRIT 44.1 % (37.0-47.0); HEMOGLOBIN 14.7 gm/dL (12.0-15.0); MCH 25.6 pg (26.0-34.0); MCHC 33.3 g/dL (28.0-37.0); MCV 76.8 fL (80.0-100.0); MONOCYTES 6.7 % (1.0-8.0); PLATELET COUNT 261 thou/uL (150-400); POLYS 79.9 % (36.0-66.0); RBC 5.74 mil/uL (4.20-5.00); RDW 16.1 % (10.5-14.5); WBC 9.5 thou/uL (4.0-11.0)
[2018-01-04 10:26] LABS: ANION GAP 9 mmol/L (7-16); BUN 16 mg/dL (7-18); CALCIUM 10.1 mg/dL (8.5-10.1); CHLORIDE 99 mmol/L (98-107); CO2 27 mmol/L (21-32); CREATININE 1.5 mg/dL (0.6-1.0); GLUCOSE 105 mg/dL (74-106); POTASSIUM 3.9 mmol/L (3.5-5.1); SODIUM 135 mmol/L (136-145)
[2018-01-04 10:35] LABS: ALBUMIN 4.5 g/dL (3.4-5.0); LIPASE 78 U/L (73-393); SGOT 9 U/L (15-37); SGPT 12 U/L (30-65); TOTAL BILIRUBIN 0.5 mg/dL (<0.1-1.0); TOTAL PROTEIN 8.5 g/dL (6.4-8.2); TROPONIN-I <0.06 ng/mL (<0.06)
[2018-01-04 11:49] LABS: URINE BILIRUBIN NEGATIVE (Negative); URINE BLOOD 2+ (Negative); URINE CLARITY CLEAR; URINE COLOR YELLOW; URINE GLUCOSE-RANDOM* NEGATIVE (Negative); URINE KETONES TRACE (Negative); URINE LEUKOCYTES-REFLEX NEGATIVE (Negative); URINE NITRITE-REFLEX NEGATIVE (Negative); URINE PROTEIN (DIPSTICK) 1+ (Negative); URINE SPECIFIC GRAVITY 1.025 (1.005-1.035); URINE UROBILINOGEN 0.2 E.U./dl (0.2-1.0)
[2018-01-04 11:57] LABS: CASTS None Seen /LPF (None Seen); SQUAMOUS >10 Many /LPF (0-3)
[2018-01-04 11:58] LABS: BACTERIA-REFLEX 1-9 Few /HPF (None Seen); CRYSTALS None Seen /LPF (None Seen); URINE RBC 3-10 Few /HPF (0-2); URINE WBC-REFLEX 0-5 Rare /HPF (0-5)
[2018-01-05 00:36] VITALS: BP 146/98
[2018-01-05 04:59] VITALS: BP 117/64; BP 134/77
[2018-01-05 07:22] VITALS: BP 83/57
[2018-01-05 10:57] VITALS: BP 93/56
[2018-01-05 15:44] VITALS: BP 89/54
[2018-01-05 20:40] VITALS: BP 106/60
[2018-01-06 04:05] VITALS: BP 90/54
[2018-01-06 06:09] LABS: CALCIUM 8.6 mg/dL (8.5-10.1); POTASSIUM 4.3 mmol/L (3.5-5.1)
[2018-01-06 06:12] LABS: CREATININE 3.4 mg/dL (0.6-1.0)
[2018-01-06 08:25] VITALS: BP 93/58
[2018-01-06 11:09] LABS: URINE BILIRUBIN NEGATIVE (Negative); URINE BLOOD 2+ (Negative); URINE CLARITY CLOUDY; URINE COLOR YELLOW; URINE GLUCOSE-RANDOM* NEGATIVE (Negative); URINE KETONES NEGATIVE (Negative); URINE LEUKOCYTES 1+ (Negative); URINE NITRITE POSITIVE (Negative); URINE PROTEIN (DIPSTICK) NEGATIVE (Negative); URINE SPECIFIC GRAVITY >= 1.030 (1.005-1.035); URINE UROBILINOGEN 0.2 E.U./dl (0.2-1.0)
[2018-01-06 11:50] LABS: SQUAMOUS >10 Many /LPF (0-3); URINE WBC 6-15 Few /HPF (0-5)
[2018-01-06 11:51] LABS: CASTS None Seen /LPF (None Seen); CRYSTALS None Seen /LPF (None Seen); URINE RBC 0-2 Rare /HPF (0-2)
[2018-01-06 12:15] VITALS: BP 98/59
[2018-01-06 16:05] VITALS: BP 105/59
[2018-01-06 19:25] VITALS: BP 99/54
[2018-01-07] VITALS (7 sets, daily range): BP systolic 98–136; BP diastolic 45–69
[2018-01-07 04:51] LABS: ABSOLUTE NEUTROPHILS 3.2 thou/uL (1.4-8.2); BASOPHILS 1.3 % (0.0-2.0); EOSINOPHILS 4.6 % (0.0-3.0); HEMATOCRIT 30.2 % (37.0-47.0); LYMPHOCYTES 26.2 % (24.0-44.0); MCH 25.8 pg (26.0-34.0); MCV 78.2 fL (80.0-100.0); POLYS 56.9 % (36.0-66.0); RBC 3.85 mil/uL (4.20-5.00); RDW 16.2 % (10.5-14.5); WBC 5.5 thou/uL (4.0-11.0)
[2018-01-07 04:55] LABS: PLATELET COUNT 157 thou/uL (150-400)
[2018-01-07 05:02] LABS: CALCIUM 8.8 mg/dL (8.5-10.1); POTASSIUM 4.2 mmol/L (3.5-5.1)
[2018-01-07 05:03] LABS: CREATININE 1.9 mg/dL (0.6-1.0)
[2018-01-07] MEDS ORDERED: MS CONTIN15 MG PO ×2 (08:12→14:29)
[2018-01-08 04:00] VITALS: BP 125/71
[2018-01-08 05:09] LABS: ABSOLUTE NEUTROPHILS 3.3 thou/uL (1.4-8.2); BASOPHILS 1.1 % (0.0-2.0); EOSINOPHILS 4.2 % (0.0-3.0); HEMATOCRIT 32.5 % (37.0-47.0); LYMPHOCYTES 28.2 % (24.0-44.0); MCH 26.5 pg (26.0-34.0); MCHC 33.9 g/dL (28.0-37.0); MONOCYTES 9.4 % (1.0-8.0); PLATELET COUNT 161 thou/uL (150-400); POLYS 57.1 % (36.0-66.0); RBC 4.17 mil/uL (4.20-5.00); RDW 16.2 % (10.5-14.5); WBC 5.8 thou/uL (4.0-11.0)
[2018-01-08 05:14] LABS: ALBUMIN 3.3 g/dL (3.4-5.0); CALCIUM 9.2 mg/dL (8.5-10.1); CREATININE 1.5 mg/dL (0.6-1.0); PHOSPHORUS 4.4 mg/dL (2.5-4.9); POTASSIUM 4.7 mmol/L (3.5-5.1)
[2018-01-08 07:45] VITALS: BP 110/61
[2018-01-08] MEDS ORDERED: PACERONE 200 M200 M1 PO ×2 (09:23→11:09)
[2018-01-08 11:39] VITALS: BP 105/48
[2018-01-08 12:05] VITALS: BP 121/57
== END 2018-01-08 13:10 | disposition home health service (06) | DRG 682 ==
LOC: ER 09:10 → EROBS 12:48 → 2N 12:48
PROVIDERS: Hospitalist; Nurse Practitioner Family; Physician Assistant
DX: N17.0 Acute kidney failure with tubular necrosis (principal); E43 Unspecified severe protein-calorie malnutrition; D62 Acute posthemorrhagic anemia; I13.0 Hypertensive heart and chronic kidney disease with heart failure and stage 1 through stage 4 chronic kidney disease, or unspecified chronic kidney disease; I16.0 Hypertensive urgency; I48.0 Paroxysmal atrial fibrillation; F41.9 Anxiety disorder, unspecified; G89.29 Other chronic pain; J44.9 Chronic obstructive pulmonary disease, unspecified; K21.9 Gastro-esophageal reflux disease without esophagitis; Z96.652 Presence of left artificial knee joint; N18.9 Chronic kidney disease, unspecified; I27.20 Pulmonary hypertension, unspecified; M47.896 Other spondylosis, lumbar region; F17.210 Nicotine dependence, cigarettes, uncomplicated; R06.6 Hiccough; I50.9 Heart failure, unspecified; Z90.710 Acquired absence of both cervix and uterus; Z79.899 Other long term (current) drug therapy; Z88.2 Allergy status to sulfonamides; Z90.49 Acquired absence of other specified parts of digestive tract; Z82.49 Family history of ischemic heart disease and other diseases of the circulatory system; Z83.3 Family history of diabetes mellitus; Z91.19 Patient's noncompliance with other medical treatment and regimen; Z79.01 Long term (current) use of anticoagulants
CPT/HCPCS: 10081

== ENCOUNTER → 2018-02-02 | Outpatient (CLI) | payer OTHER ==
[~2018-02-02] VITALS: Ht 157.5 cm; Wt 92.0 kg
[2018-02-02 10:23] VITALS: BP 159/86
== END ==
LOC: PAIN 07:03
DX: M25.561 Pain in right knee (principal); M54.5 Low back pain; F17.210 Nicotine dependence, cigarettes, uncomplicated; Z79.899 Other long term (current) drug therapy; Z79.891 Long term (current) use of opiate analgesic

== ENCOUNTER 2018-02-10 16:00 | Emergency (ER) | payer OTHER ==
[~2018-02-10] VITALS: Ht 160 cm; Wt 93.9 kg
[~2018-02-10 16:00] MED LIST changes: -MEDROLDOSEPACK PO
[2018-02-10] MEDS ORDERED: MEDROLDOSEPACK PO (16:26)
[2018-02-10 16:54] VITALS: BP 151/71
== END 2018-02-10 16:55 | disposition home or self-care (01) ==
LOC: ER 16:00
DX: M70.21 Olecranon bursitis, right elbow (principal); F17.210 Nicotine dependence, cigarettes, uncomplicated; I48.91 Unspecified atrial fibrillation; I10 Essential (primary) hypertension; F41.9 Anxiety disorder, unspecified; G89.29 Other chronic pain; J44.9 Chronic obstructive pulmonary disease, unspecified; K21.9 Gastro-esophageal reflux disease without esophagitis; Z96.652 Presence of left artificial knee joint; Z90.710 Acquired absence of both cervix and uterus; Z88.2 Allergy status to sulfonamides; Y93.89 Activity, other specified

== ENCOUNTER → 2018-02-10 | Outpatient (CLI) | payer OTHER ==
[~2018-02-10] MED LIST changes: +MEDROLDOSEPACK PO
--- NOTE | ~2018-02-10 | SLE ---
[facility] [place] [address] POLYSOMNOGRAPHY STUDY Name: TERI CRUZ Room #: REG [facility]#: [id number] Admission: 02/10/18 Attend Phys: Emiliano Brasher MD Discharge: Date of : 51 Report #: [id number] THIS REPORT FOR: //name// CC: Emiliano Song MD DATE OF SERVICE: 02/11/2018 ATTENDING PHYSICIAN: Dr. Rigo Song. The patient is a 62-year-old who weighs 207 pounds and is 62 inches tall with a BMI of 37.9. The patient's Rosston score was 7. The patient underwent a sleep study performed by [facility]. This was a diagnostic study. During the night study, the patient spent 391 minutes in bed and slept for 354 minutes with a sleep efficiency of 91%. Sleep latency was 3.3 minutes with a REM latency of 242.8 minutes. Overall, sleep architecture showed normal stage 1 sleep, increased stage 2 sleep, absent slow wave and significantly reduced REM sleep, which was only 2.7% of the total sleep time. During the night study, the patient had 4 obstructive apneas, no mixed or central apneas and 64 hypopneas. The patient's apnea hypopnea index was only 11.5 per hour. REM index of 25.3 per hour. The patient's supine index was 11.5 per hour. EKG monitoring revealed an average heart rate of 49 beats per minute with a maximum of 79 beats per minute. No sustained arrhythmias were observed. No clinically significant PLM seen. Nocturnal oximetry study revealed an average oxygen saturation of 90% with lowest of 82%. 185 minutes were spent at an oxygen saturation between 80% and 89%. Due to low AHI, the patient did not meet the split night criteria for CPAP initiation. IMPRESSION: 1. Mild sleep apnea-hypopnea syndrome with moderate increase during rapid eye movement sleep. Total apnea hypopnea index 11.5 per hour with a rapid eye movement apnea hypopnea index of 25.3 per hour. The patient had very minimal rapid eye movement sleep, which could underestimate the severity of sleep apnea. 2. Nocturnal hypoxia secondary to obstructive sleep apnea. 3. No clinically significant periodic limb movements. [address] [address] POLYSOMNOGRAPHY STUDY Name: CRUZTERI CANDACE Room #: REG [facility].#: [id number] Admission: 02/10/18 Attend Phys: Emiliano Brasher MD Discharge: Date of : 51 Report #: [id number] RECOMMENDATIONS: 1. The patient did not meet the criteria for CPAP initiation. 2. If the patient is clinically symptomatic, then she should undergo CPAP titration study. Alternate treatment option would include a use of oral appliance. 3. Weight loss is advised. 4. Avoid RADIOLOGIST PHYSICIAN depressants. 5. Cautioned regarding driving until symptoms of sleep apnea resolve with above recommendations. <ELECTRONICALLY SIGNED> By: Emiliano Brasher MD 02/13/182007 1347 1417 Emiliano Brasher MD /nt
== END ==
LOC: SLEEPLAB 01-03 13:20
DX: G47.33 Obstructive sleep apnea (adult) (pediatric) (principal); R09.02 Hypoxemia

== ENCOUNTER → 2018-03-09 | Outpatient (CLI) | payer OTHER ==
[~2018-03-09] VITALS: Ht 157.5 cm; Wt 97.1 kg
[~2018-03-09] MED LIST changes: +HYDROCODONE-CH473 M1 PO; +MEDROLDOSEPACK PO
[2018-03-09 11:01] VITALS: BP 146/69
== END ==
LOC: PAIN 09:55
DX: M54.5 Low back pain (principal); M25.561 Pain in right knee; Z79.899 Other long term (current) drug therapy

== ENCOUNTER → 2018-03-15 | Outpatient (CLI) | payer OTHER ==
--- NOTE | ~2018-03-15 | SLE ---
[facility] [place] [address] POLYSOMNOGRAPHY STUDY Name: TERI CRUZ Room #: REG [facility].#: [id number] Admission: 03/15/18 Attend Phys: Emiliano Brasher MD Discharge: Date of : 51 Report #: [id number] THIS REPORT FOR: //name// CC: Emiliano Singh DATE OF SERVICE: 03/15/2018 ATTENDING PHYSICIAN: Dr. Rigo Song. The patient is a 62-year-old who weighs 207 pounds and is 62 inches tall with a BMI of 37.7. The patient had a previous sleep study at [facility] on 02/10/2018 and was found to have mild LIA with moderate increase during REM sleep. Total AHI was 11.5 per hour with a REM AHI of 25.3 per hour. The patient was clinically symptomatic. As a result, she was referred back to [facility] for CPAP/BiPAP titration study. During the night of study, the patient spent 459 minutes in bed and slept for 377 minutes with a sleep efficiency of 82%. Sleep latency was 4.4 minutes with a REM latency of 343 minutes. Overall, sleep architecture showed normal stage 1 sleep, increased stage 2 sleep which was 79% of the total sleep time, normal N3 sleep and reduced REM sleep, which was 12.3% of the total sleep time. EKG monitoring revealed an average heart rate of 52 beats per minute. No sustained arrhythmias were observed. Maximum heart rate was 64 beats per minute. No clinically significant PLMS observed. The patient was desensitized to CPAP, but despite that she could not tolerate the CPAP. As a result, she was started on BiPAP at a pressure of 10/5. The pressure was gradually increased and at the final pressure of 18/12, the patient slept for 130 minutes. The patient had a long 46 minutes on REM sleep and supine sleep was seen throughout this final pressure. The patient's AHI was significantly improved to 6.4 per hour and oxygen saturation remained above 90% with one spot desaturation of 87%. I would recommend the final pressure to be as 20/13. IMPRESSION: 1. Sleep apnea diagnosed by previous sleep study. 2. No clinically significant periodic limb movements. RECOMMENDATIONS: 1. BiPAP at 20/13 should be used on a nightly basis. 2. The patient should have a followup in 4-6 weeks to assess compliance with BiPAP and to document clinical improvement. [facility] [address] [place] [address] POLYSOMNOGRAPHY STUDY Name: TERI CRUZ Room #: REG [facility]#: [id number] Admission: 03/15/18 Attend Phys: Emiliano Brasher MD Discharge: Date of : 51 Report #: [id number] 3. Weight loss is advised. 4. Avoid TELEPHONE EXCHANGE OPERATOR depressants. 5. Cautioned regarding driving until symptoms of sleep apnea resolve with the use of BiPAP. <ELECTRONICALLY SIGNED> By: Emiliano Brasher MD 03/20/18 2220 1916 1933 Emiliano Brasher MD /nt
== END ==
LOC: SLEEPLAB 13:29
DX: G47.33 Obstructive sleep apnea (adult) (pediatric) (principal)

== ENCOUNTER → 2018-04-06 | Outpatient (CLI) | payer OTHER ==
[~2018-04-06] VITALS: Ht 157.5 cm; Wt 92.9 kg
[~2018-04-06] MED LIST changes: +CARTIA XT240 M1 PO; +VENTOLIN HFA 1818 GM INH
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
[2018-04-06 10:50] VITALS: BP 125/75
== END ==
LOC: PAIN 10:17
DX: I10 Essential (primary) hypertension (principal); G89.29 Other chronic pain; J44.9 Chronic obstructive pulmonary disease, unspecified; J30.5 Allergic rhinitis due to food; M19.90 Unspecified osteoarthritis, unspecified site; K21.9 Gastro-esophageal reflux disease without esophagitis; M25.561 Pain in right knee; M25.571 Pain in right ankle and joints of right foot; E11.9 Type 2 diabetes mellitus without complications; G47.33 Obstructive sleep apnea (adult) (pediatric); I48.91 Unspecified atrial fibrillation; E27.40 Unspecified adrenocortical insufficiency; F41.9 Anxiety disorder, unspecified; G43.909 Migraine, unspecified, not intractable, without status migrainosus; M79.7 Fibromyalgia

== ENCOUNTER → 2018-05-04 | Outpatient (CLI) | payer OTHER ==
[~2018-05-04] VITALS: Ht 160 cm; Wt 97.5 kg
[2018-05-04 09:32] VITALS: BP 129/52
--- NOTE | 2018-05-04 09:34 | NUR ---
Pain Clinic Assessment: 1. History of Osteoarthritis: legs and knees History of Rheumatoid Arthritis: none 2. Height: 5 ft. 3 in. 160.0 cm. Weight: 215.0 lb. oz. 97.524 kg. Patient's BMI: 38.1 3. Vital Signs: BP: 129/52 Pulse: 60 Resp: 16 Temp: 02 Sat: 97 ECG Mon: 4. Pain Intensity: 7 5. Fall Risk: Dizziness: N Needs help standing or walking: N Fallen in the last 3 months: N Fall risk comments: 6. Patient on Blood Thinner: ELIQUIS 7. History of Hypertension: Y 8. Opioid Therapy greater than 6 weeks: Y Opiate Contract Signed: 09/22/17 9. Risk Assessment Tool Provided: low-0 10. Functional Assessment Tool: 11. Recreational Drug Use: Never Drug Type: Tobacco Use: Current Every Day Smoker Tobacco Type: Amount or Packs/day: How Many Years: Alcohol Use: No Frequency: Quant:
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
== END ==
LOC: PAIN 06:57
DX: M19.072 Primary osteoarthritis, left ankle and foot (principal); G89.29 Other chronic pain; M25.561 Pain in right knee; J44.9 Chronic obstructive pulmonary disease, unspecified; E11.9 Type 2 diabetes mellitus without complications; I10 Essential (primary) hypertension; J30.9 Allergic rhinitis, unspecified; K21.9 Gastro-esophageal reflux disease without esophagitis; M79.7 Fibromyalgia; G43.909 Migraine, unspecified, not intractable, without status migrainosus; F32.9 Major depressive disorder, single episode, unspecified; G47.30 Sleep apnea, unspecified; I48.91 Unspecified atrial fibrillation; Z79.899 Other long term (current) drug therapy; V89.2XXA Person injured in unspecified motor-vehicle accident, traffic, initial encounter

== ENCOUNTER → 2018-06-01 | Outpatient (CLI) | payer OTHER ==
[~2018-06-01] VITALS: Ht 157.5 cm; Wt 97.7 kg
[2018-06-01 09:52] VITALS: BP 133/71
--- NOTE | 2018-06-01 10:02 | NUR ---
Pain Clinic Assessment: 1. History of Osteoarthritis: legs and knees History of Rheumatoid Arthritis: none 2. Height: 5 ft. 2 in. 157.5 cm. Weight: 215.4 lb. oz. 97.705 kg. Patient's BMI: 39.4 3. Vital Signs: BP: 133/71 Pulse: 60 Resp: 20 Temp: 02 Sat: 98 ECG Mon: 4. Pain Intensity: 7 5. Fall Risk: Dizziness: N Needs help standing or walking: Y Fallen in the last 3 months: N Fall risk comments: 6. Patient on Blood Thinner: ELIQUIS 7. History of Hypertension: Y 8. Opioid Therapy greater than 6 weeks: Y Opiate Contract Signed: 09/22/17 9. Risk Assessment Tool Provided: low-0 10. Functional Assessment Tool: 11. Recreational Drug Use: Never Drug Type: Tobacco Use: Current Every Day Smoker Tobacco Type: Amount or Packs/day: How Many Years: Alcohol Use: No Frequency: Quant:
== END ==
LOC: PAIN 07:45
DX: M54.5 Low back pain (principal); M25.561 Pain in right knee; M25.572 Pain in left ankle and joints of left foot; G89.29 Other chronic pain; F17.200 Nicotine dependence, unspecified, uncomplicated; Z79.899 Other long term (current) drug therapy

== ENCOUNTER → 2018-06-29 | Outpatient (CLI) | payer OTHER ==
[~2018-06-29] VITALS: Ht 157.5 cm; Wt 99.2 kg
[2018-06-29 10:20] VITALS: BP 126/75
--- NOTE | 2018-06-29 10:26 | NUR ---
Pain Clinic Assessment: 1. History of Osteoarthritis: legs and knees History of Rheumatoid Arthritis: none 2. Height: 5 ft. 2 in. 157.5 cm. Weight: 218.8 lb. oz. 99.247 kg. Patient's BMI: 40.0 3. Vital Signs: BP: 126/75 Pulse: 66 Resp: 18 Temp: 02 Sat: 97 ECG Mon: 4. Pain Intensity: 7 5. Fall Risk: Dizziness: N Needs help standing or walking: N Fallen in the last 3 months: N Fall risk comments: 6. Patient on Blood Thinner: ELIQUIS 7. History of Hypertension: Y 8. Opioid Therapy greater than 6 weeks: Y Opiate Contract Signed: 09/22/17 9. Risk Assessment Tool Provided: low-0 10. Functional Assessment Tool: 11. Recreational Drug Use: Never Drug Type: Tobacco Use: Current Every Day Smoker Tobacco Type: Amount or Packs/day: How Many Years: Alcohol Use: No Frequency: Quant:
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
== END ==
LOC: PAIN 07:07
DX: I10 Essential (primary) hypertension (principal); J45.909 Unspecified asthma, uncomplicated; G89.29 Other chronic pain; J44.9 Chronic obstructive pulmonary disease, unspecified; M19.90 Unspecified osteoarthritis, unspecified site; K21.9 Gastro-esophageal reflux disease without esophagitis; E11.9 Type 2 diabetes mellitus without complications; F41.9 Anxiety disorder, unspecified; G47.33 Obstructive sleep apnea (adult) (pediatric); I48.91 Unspecified atrial fibrillation; M79.7 Fibromyalgia; M25.561 Pain in right knee; M25.572 Pain in left ankle and joints of left foot; Z88.8 Allergy status to other drugs, medicaments and biological substances; Z86.39 Personal history of other endocrine, nutritional and metabolic disease; Z79.899 Other long term (current) drug therapy

== ENCOUNTER → 2018-07-29 | Outpatient (CLI) | payer OTHER ==
[~2018-07-29] VITALS: Ht 157.5 cm; Wt 93.0 kg
[2018-07-29 10:02] VITALS: BP 113/74
--- NOTE | 2018-07-29 10:04 | NUR ---
Pain Clinic Assessment: 1. History of Osteoarthritis: legs and knees History of Rheumatoid Arthritis: none 2. Height: 5 ft. 2 in. 157.5 cm. Weight: 205.0 lb. oz. 92.988 kg. Patient's BMI: 37.5 3. Vital Signs: BP: 113/74 Pulse: 91 Resp: 16 Temp: 02 Sat: 96 ECG Mon: 4. Pain Intensity: 9-10 5. Fall Risk: Dizziness: N Needs help standing or walking: N Fallen in the last 3 months: N Fall risk comments: 6. Patient on Blood Thinner: DANIELIS 7. History of Hypertension: Y 8. Opioid Therapy greater than 6 weeks: Y Opiate Contract Signed: 09/22/17 9. Risk Assessment Tool Provided: low-0 10. Functional Assessment Tool: 11. Recreational Drug Use: Never Drug Type: Tobacco Use: Current Every Day Smoker Tobacco Type: Cigarettes Amount or Packs/day: 1 PACK How Many Years: Alcohol Use: No Frequency: Quant:
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
== END ==
LOC: PAIN 06:53
DX: I10 Essential (primary) hypertension (principal); J45.909 Unspecified asthma, uncomplicated; K21.9 Gastro-esophageal reflux disease without esophagitis; F41.9 Anxiety disorder, unspecified; E11.9 Type 2 diabetes mellitus without complications; M25.561 Pain in right knee; M25.562 Pain in left knee; J44.9 Chronic obstructive pulmonary disease, unspecified; M19.90 Unspecified osteoarthritis, unspecified site; M79.7 Fibromyalgia; G89.29 Other chronic pain; G43.909 Migraine, unspecified, not intractable, without status migrainosus; Z79.899 Other long term (current) drug therapy; Z88.8 Allergy status to other drugs, medicaments and biological substances

== ENCOUNTER → 2018-08-26 | Outpatient (CLI) | payer OTHER ==
[~2018-08-26] VITALS: Ht 157.5 cm; Wt 99.8 kg
[2018-08-26 09:15] VITALS: BP 145/101
--- NOTE | 2018-08-26 09:29 | NUR ---
Pain Clinic Assessment: 1. History of Osteoarthritis: legs and knees History of Rheumatoid Arthritis: none 2. Height: 5 ft. 2 in. 157.5 cm. Weight: 220.0 lb. oz. 99.792 kg. Patient's BMI: 40.2 3. Vital Signs: BP: 145/101 Pulse: 83 Resp: 20 Temp: 02 Sat: 97 ECG Mon: 4. Pain Intensity: 6-7 5. Fall Risk: Dizziness: N Needs help standing or walking: Y Fallen in the last 3 months: N Fall risk comments: 6. Patient on Blood Thinner: DANIELIS 7. History of Hypertension: Y 8. Opioid Therapy greater than 6 weeks: Y Opiate Contract Signed: 09/22/17 9. Risk Assessment Tool Provided: low-0Y 10. Functional Assessment Tool: 11. Recreational Drug Use: Never Drug Type: Tobacco Use: Current Every Day Smoker Tobacco Type: Cigarettes Amount or Packs/day: 1/2 PACK How Many Years: Alcohol Use: No Frequency: Quant:
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
== END ==
LOC: PAIN 06:55
DX: G89.29 Other chronic pain (principal); M17.0 Bilateral primary osteoarthritis of knee; M19.072 Primary osteoarthritis, left ankle and foot; Z88.2 Allergy status to sulfonamides; Z79.899 Other long term (current) drug therapy; Z79.891 Long term (current) use of opiate analgesic

== ENCOUNTER → 2018-09-26 | Outpatient (CLI) | payer OTHER ==
[~2018-09-26] VITALS: Ht 157.5 cm; Wt 101.2 kg
[2018-09-26 10:50] VITALS: BP 130/86
--- NOTE | 2018-09-26 11:09 | NUR ---
Pain Clinic Assessment: 1. History of Osteoarthritis: B/L LEGS B/L KNESS B/L FINGERS B/L HANDS History of Rheumatoid Arthritis: none 2. Height: 5 ft. 2 in. 157.5 cm. Weight: 223.0 lb. oz. 101.152 kg. Patient's BMI: 40.8 3. Vital Signs: BP: 130/86 Pulse: 101 Resp: 22 Temp: 02 Sat: 96 ECG Mon: 4. Pain Intensity: 6 5. Fall Risk: Dizziness: N Needs help standing or walking: Y Fallen in the last 3 months: N Fall risk comments: 6. Patient on Blood Thinner: JOSE 7. History of Hypertension: Y 8. Opioid Therapy greater than 6 weeks: Y Opiate Contract Signed: 09/22/17 9. Risk Assessment Tool Provided: low-0Y 10. Functional Assessment Tool: 11. Recreational Drug Use: Never Drug Type: Tobacco Use: Current Every Day Smoker Tobacco Type: Cigarettes Amount or Packs/day: PACK How Many Years: 20 Alcohol Use: No Frequency: Quant:
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
== END ==
LOC: PAIN 06:53
DX: M19.90 Unspecified osteoarthritis, unspecified site (principal); M25.561 Pain in right knee; M25.562 Pain in left knee; G89.29 Other chronic pain; Z79.891 Long term (current) use of opiate analgesic; Z79.899 Other long term (current) drug therapy

== ENCOUNTER 2018-10-04 19:04 | Emergency (ER) | payer OTHER ==
[~2018-10-04] VITALS: Ht 157.5 cm; Wt 95.3 kg
[2018-10-04] MEDS ORDERED: PERCOCET 5-3251 EACH PO (21:10)
[2018-10-04] MEDS ORDERED: KEFLEX500 M1 PO (21:10)
[2018-10-04] MEDS ORDERED: VIBRAMYCIN 100100 MG PO (21:10)
[2018-10-04 21:25] VITALS: BP 146/98
== END 2018-10-04 21:30 | disposition home or self-care (01) ==
LOC: ER 19:04
DX: L02.414 Cutaneous abscess of left upper limb (principal); I10 Essential (primary) hypertension; J44.9 Chronic obstructive pulmonary disease, unspecified; I48.91 Unspecified atrial fibrillation; F41.9 Anxiety disorder, unspecified; K21.9 Gastro-esophageal reflux disease without esophagitis; G89.29 Other chronic pain; F17.210 Nicotine dependence, cigarettes, uncomplicated; Z90.710 Acquired absence of both cervix and uterus; Z88.2 Allergy status to sulfonamides; Z96.652 Presence of left artificial knee joint

== ENCOUNTER 2018-10-07 17:48 | Emergency (ER) | payer OTHER ==
[~2018-10-07] VITALS: Ht 157.5 cm; Wt 90.7 kg
[~2018-10-07 17:48] MED LIST changes: +KEFLEX500 M1 PO; +VIBRAMYCIN 100100 MG PO
[2018-10-07 17:49] VITALS: BP 149/82
== END 2018-10-07 19:00 | disposition home or self-care (01) ==
LOC: ER 17:48
DX: L02.414 Cutaneous abscess of left upper limb (principal); F17.210 Nicotine dependence, cigarettes, uncomplicated; I48.91 Unspecified atrial fibrillation; I10 Essential (primary) hypertension; F41.9 Anxiety disorder, unspecified; J44.9 Chronic obstructive pulmonary disease, unspecified; K21.9 Gastro-esophageal reflux disease without esophagitis; Z96.652 Presence of left artificial knee joint; Z90.710 Acquired absence of both cervix and uterus; Z88.2 Allergy status to sulfonamides

== ENCOUNTER 2018-10-18 08:58 | Emergency (ER) | payer OTHER ==
[~2018-10-18] VITALS: Ht 157.5 cm; Wt 90.7 kg
[2018-10-18 08:59] VITALS: BP 140/100
== END 2018-10-18 09:31 | disposition home or self-care (01) ==
LOC: ER 08:58
DX: Z48.01 Encounter for change or removal of surgical wound dressing (principal); F17.210 Nicotine dependence, cigarettes, uncomplicated; I48.91 Unspecified atrial fibrillation; I10 Essential (primary) hypertension; F41.9 Anxiety disorder, unspecified; J44.9 Chronic obstructive pulmonary disease, unspecified; K21.9 Gastro-esophageal reflux disease without esophagitis; Z90.710 Acquired absence of both cervix and uterus; Z88.2 Allergy status to sulfonamides; Z96.652 Presence of left artificial knee joint

== ENCOUNTER → 2018-10-26 | Outpatient (CLI) | payer OTHER ==
[~2018-10-26] VITALS: Ht 157.5 cm; Wt 102.3 kg
[2018-10-26 11:10] VITALS: BP 143/103
--- NOTE | 2018-10-26 11:22 | NUR ---
Pain Clinic Assessment: 1. History of Osteoarthritis: B/L LEGS B/L KNESS B/L FINGERS B/L HANDS History of Rheumatoid Arthritis: none 2. Height: 5 ft. 2 in. 157.5 cm. Weight: 225.6 lb. oz. 102.332 kg. Patient's BMI: 41.3 3. Vital Signs: BP: 143/103 Pulse: 107 Resp: 20 Temp: 02 Sat: 100 ECG Mon: 4. Pain Intensity: 5-6 5. Fall Risk: Dizziness: N Needs help standing or walking: Y Fallen in the last 3 months: N Fall risk comments: 6. Patient on Blood Thinner: JOSE 7. History of Hypertension: Y 8. Opioid Therapy greater than 6 weeks: Y Opiate Contract Signed: 09/22/17 9. Risk Assessment Tool Provided: low-0Y 10. Functional Assessment Tool: 42 11. Recreational Drug Use: Never Drug Type: Tobacco Use: Current Every Day Smoker Tobacco Type: Cigarettes Amount or Packs/day: How Many Years: Alcohol Use: No Frequency: Quant:
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
== END ==
LOC: PAIN 10:25
DX: M25.561 Pain in right knee (principal); M25.562 Pain in left knee; G89.29 Other chronic pain; M79.672 Pain in left foot; Z79.891 Long term (current) use of opiate analgesic

== ENCOUNTER → 2018-11-23 | Outpatient (CLI) | payer OTHER ==
[~2018-11-23] VITALS: Ht 157.5 cm; Wt 100.7 kg
[2018-11-23 10:14] VITALS: BP 138/94
--- NOTE | 2018-11-23 10:17 | NUR ---
Pain Clinic Assessment: 1. History of Osteoarthritis: B/L LEGS B/L KNESS B/L FINGERS B/L HANDS History of Rheumatoid Arthritis: none 2. Height: 5 ft. 2 in. 157.5 cm. Weight: 222.0 lb. oz. 100.699 kg. Patient's BMI: 40.6 3. Vital Signs: BP: 138/94 Pulse: 104 Resp: 18 Temp: 02 Sat: 97 ECG Mon: 4. Pain Intensity: 3 5. Fall Risk: Dizziness: N Needs help standing or walking: N Fallen in the last 3 months: N Fall risk comments: 6. Patient on Blood Thinner: JOSE 7. History of Hypertension: Y 8. Opioid Therapy greater than 6 weeks: Y Opiate Contract Signed: 09/22/17 9. Risk Assessment Tool Provided: low-0Y 10. Functional Assessment Tool: 42 11. Recreational Drug Use: Never Drug Type: Tobacco Use: Current Every Day Smoker Tobacco Type: Cigarettes Amount or Packs/day: How Many Years: Alcohol Use: No Frequency: Quant:
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
== END ==
LOC: PAIN 06:56
DX: M25.572 Pain in left ankle and joints of left foot (principal); M19.90 Unspecified osteoarthritis, unspecified site; M25.562 Pain in left knee; M25.561 Pain in right knee; G89.29 Other chronic pain; Z79.891 Long term (current) use of opiate analgesic; Z88.2 Allergy status to sulfonamides; Z79.899 Other long term (current) drug therapy

== ENCOUNTER 2019-02-21 11:04 | Emergency (ER) | payer OTHER ==
[~2019-02-21] VITALS: Ht 160 cm; Wt 95.3 kg
[2019-02-21 11:27] LABS: ABSOLUTE NEUTROPHILS 5.4 thou/uL (1.4-8.2); BASOPHILS 0.9 % (0.0-2.0); EOSINOPHILS 1.6 % (0.0-3.0); HEMATOCRIT 37.7 % (37.0-47.0); HEMOGLOBIN 12.1 gm/dL (12.0-15.0); LYMPHOCYTES 16.7 % (24.0-44.0); MCH 25.8 pg (26.0-34.0); MCHC 32.2 g/dL (28.0-37.0); MONOCYTES 8.8 % (1.0-8.0); PLATELET COUNT 215 thou/uL (150-400); RBC 4.71 mil/uL (4.20-5.00); RDW 15.4 % (10.5-14.5); WBC 7.5 thou/uL (4.0-11.0)
[2019-02-21 11:41] LABS: APTT 35.2 Seconds (24.5-32.8); INR 1.1; PROTIME 11.1 Seconds (9.3-11.4)
[2019-02-21 11:45] LABS: ANION GAP 7 mmol/L (7-16); BUN 24 mg/dL (7-18); CALCIUM 9.3 mg/dL (8.5-10.1); CHLORIDE 102 mmol/L (98-107); CO2 28 mmol/L (21-32); CREATININE 1.7 mg/dL (0.6-1.0); GLUCOSE 103 mg/dL (74-106); POTASSIUM 4.4 mmol/L (3.5-5.1); SODIUM 137 mmol/L (136-145)
[2019-02-21 11:50] LABS: MAGNESIUM 2.3 mg/dL (1.8-2.4); SGOT 7 U/L (15-37); SGPT 10 U/L (30-65); TOTAL BILIRUBIN 0.3 mg/dL (<0.1-1.0); TOTAL PROTEIN 7.4 g/dL (6.4-8.2); TROPONIN-I <0.06 ng/mL (<0.06)
[2019-02-21] MEDS ORDERED: ALBUTEROL2.5 MG/31 INH (12:27)
[2019-02-21] MEDS ORDERED: AUGMENTIN 875-1 EACH PO (12:27)
[2019-02-21] MEDS ORDERED: PREDNISONE 20 M20 MG PO (12:27)
[2019-02-21 14:15] VITALS: BP 101/65
--- NOTE | 2019-02-21 19:26 | EKG ---
[address] [place] [address] ELECTROCARDIOGRAM REPORT Name: TERI CRUZ [facility] [id number] Admission: 02/21/19 Attend Phys: Discharge: 02/21/19 Date of : 51 Report #: [id number] THIS REPORT FOR: //name// [facility] ED Test Date: 2019-02-21 Test Time: 11:09:26 Pat Name: TERI CRUZ Department: Room: Gender: F Ruling Machine Operator: MICHELLE : 1955 Requested By: Andrea Turner Order Number: [id number] MD: Floyd Santos Measurements Intervals Trail Rate: 132 P: 0 SD: 70 QRS: -16 QRSD: 105 T: 46 QT: 353 QTc: 523 Interpretive Statements Atrial flutter with 2:1 AV conduction Right ventricular conduction delay Prolonged QT interval Compared to ECG 01/06/2018 13:30:12 Heart rate has increased Nonspecific change in the ST and T-wave segments Electronically Signed On 02-21-2019 19:25:41 ROTARY SHEAR OPERATOR by Floyd Santos [email or web address] <ELECTRONICALLY SIGNED> By: Floyd Santos MD, [facility] 02/21/19 1925 1109 1109 Floyd Santos MD, [facility] /EPI
== END 2019-02-21 14:38 | disposition home or self-care (01) ==
LOC: ER 11:04
PROVIDERS: Emergency Medicine
DX: J44.1 Chronic obstructive pulmonary disease with (acute) exacerbation (principal); J20.9 Acute bronchitis, unspecified; I48.20 Chronic atrial fibrillation, unspecified; I12.9 Hypertensive chronic kidney disease with stage 1 through stage 4 chronic kidney disease, or unspecified chronic kidney disease; E66.9 Obesity, unspecified; K21.9 Gastro-esophageal reflux disease without esophagitis; N18.9 Chronic kidney disease, unspecified; F41.9 Anxiety disorder, unspecified; F17.210 Nicotine dependence, cigarettes, uncomplicated; Z68.37 Body mass index [BMI] 37.0-37.9, adult; Z96.652 Presence of left artificial knee joint; Z90.710 Acquired absence of both cervix and uterus; Z88.2 Allergy status to sulfonamides

== ENCOUNTER 2019-02-23 05:02 | Emergency (ER) | payer OTHER ==
[~2019-02-23] VITALS: Ht 157.5 cm; Wt 90.7 kg
[~2019-02-23 05:02] MED LIST changes: +AUGMENTIN 875-1 EACH PO; +PREDNISONE 20 M20 MG PO
[2019-02-23 05:39] LABS: ABSOLUTE NEUTROPHILS 11.2 thou/uL (1.4-8.2); BASOPHILS 0.2 % (0.0-2.0); HEMATOCRIT 33.8 % (37.0-47.0); HEMOGLOBIN 10.9 gm/dL (12.0-15.0); MCH 26.1 pg (26.0-34.0); MCHC 32.4 g/dL (28.0-37.0); MCV 80.4 fL (80.0-100.0); MONOCYTES 6.2 % (1.0-8.0); PLATELET COUNT 218 thou/uL (150-400); POLYS 87.6 % (36.0-66.0); RDW 15.8 % (10.5-14.5); WBC 12.8 thou/uL (4.0-11.0)
[2019-02-23 05:53] LABS: ANION GAP 8 mmol/L (7-16); BUN 44 mg/dL (7-18); CALCIUM 8.9 mg/dL (8.5-10.1); CHLORIDE 99 mmol/L (98-107); CO2 28 mmol/L (21-32); CREATININE 1.8 mg/dL (0.6-1.0); GLUCOSE 107 mg/dL (74-106); POTASSIUM 4.6 mmol/L (3.5-5.1); SODIUM 135 mmol/L (136-145)
[2019-02-23 06:04] LABS: ALBUMIN 3.9 g/dL (3.4-5.0); SGOT 14 U/L (15-37); SGPT 13 U/L (30-65); TOTAL BILIRUBIN 0.3 mg/dL (<0.1-1.0); TOTAL PROTEIN 7.1 g/dL (6.4-8.2); TROPONIN-I <0.06 ng/mL (<0.06)
[2019-02-23 08:30] VITALS: BP 109/54
--- NOTE | 2019-02-23 17:13 | EKG ---
[address] [place] [address] ELECTROCARDIOGRAM REPORT Name: TERI CRUZ [facility] [id number] Admission: 02/23/19 Attend Phys: Discharge: 02/23/19 Date of : 51 Report #: [id number] THIS REPORT FOR: //name// [facility] ED Test Date: 2019-02-23 Test Time: 05:06:31 Pat Name: TERI CRUZ Department: Room: Gender: F Chief Nursing Executive: BUZZ : 1955 Requested By: Derek Way Order Number: [id number] MD: Floyd Santos Measurements Intervals [place] Rate: 102 P: 43 [place]: 237 QRS: 4 QRSD: 111 T: 39 QT: 386 QTc: 503 Interpretive Statements Atrial flutter with a moderate ventricular response RSR' in V1 or V2, right VCD Prolonged QT interval Compared to ECG 02/21/2019 11:09:26 Heart rate has slowed Electronically Signed On 02-23-2019 17:13:42 MARKET REPORTER by Floyd Santos [email or web address] <ELECTRONICALLY SIGNED> By: Floyd Santos MD, [facility] 02/23/19 1713 0506 0506 Floyd Santos MD, [facility] /EPI
== END 2019-02-23 08:45 | disposition home or self-care (01) ==
LOC: ER 05:02
PROVIDERS: Emergency Medicine
DX: R41.0 Disorientation, unspecified (principal); I48.91 Unspecified atrial fibrillation; I10 Essential (primary) hypertension; F41.9 Anxiety disorder, unspecified; J44.9 Chronic obstructive pulmonary disease, unspecified; K21.9 Gastro-esophageal reflux disease without esophagitis; G89.29 Other chronic pain; F17.210 Nicotine dependence, cigarettes, uncomplicated; Z90.710 Acquired absence of both cervix and uterus; Z88.2 Allergy status to sulfonamides

== ENCOUNTER 2019-04-02 00:09 | Emergency (ER) | payer OTHER ==
[~2019-04-02] VITALS: Ht 157.5 cm; Wt 90.7 kg
[2019-04-02 01:45] LABS: ABSOLUTE NEUTROPHILS 4.5 thou/uL (1.4-8.2); EOSINOPHILS 2.5 % (0.0-3.0); HEMATOCRIT 38.6 % (37.0-47.0); HEMOGLOBIN 12.3 gm/dL (12.0-15.0); LYMPHOCYTES 22.3 % (24.0-44.0); MCH 25.8 pg (26.0-34.0); MCV 80.5 fL (80.0-100.0); MONOCYTES 10.7 % (1.0-8.0); PLATELET COUNT 246 thou/uL (150-400); POLYS 63.5 % (36.0-66.0); RBC 4.79 mil/uL (4.20-5.00); RDW 16.4 % (10.5-14.5); WBC 7.1 thou/uL (4.0-11.0)
[2019-04-02 03:10] LABS: ANION GAP 11 mmol/L (7-16); BUN 12 mg/dL (7-18); CALCIUM 9.1 mg/dL (8.5-10.1); CHLORIDE 101 mmol/L (98-107); CO2 22 mmol/L (21-32); CREATININE 1.4 mg/dL (0.6-1.0); GLUCOSE 105 mg/dL (74-106); POTASSIUM 4.2 mmol/L (3.5-5.1); SODIUM 134 mmol/L (136-145)
[2019-04-02 03:16] LABS: ALBUMIN 3.3 g/dL (3.4-5.0); DIRECT BILIRUBIN < 0.1 mg/dL (<0.1-0.2); SGPT 13 U/L (30-65); TOTAL BILIRUBIN 0.4 mg/dL (<0.1-1.0); TOTAL PROTEIN 6.8 g/dL (6.4-8.2)
[2019-04-02 04:35] LABS: SGOT 26 U/L (15-37)
[2019-04-02] MEDS ORDERED: CLINDAMYCIN HC150 MG PO (05:27)
[2019-04-02] MEDS ORDERED: NORCO 5-325 TA1 EAC1 PO (05:29)
[2019-04-02 06:26] VITALS: BP 142/73
== END 2019-04-02 06:35 | disposition home or self-care (01) ==
LOC: ER 00:09
PROVIDERS: Emergency Medicine
DX: L03.115 Cellulitis of right lower limb (principal); M79.89 Other specified soft tissue disorders; I10 Essential (primary) hypertension; I48.91 Unspecified atrial fibrillation; J44.9 Chronic obstructive pulmonary disease, unspecified; K21.9 Gastro-esophageal reflux disease without esophagitis; F41.9 Anxiety disorder, unspecified; F17.210 Nicotine dependence, cigarettes, uncomplicated; Z90.710 Acquired absence of both cervix and uterus; Z96.652 Presence of left artificial knee joint; Z88.2 Allergy status to sulfonamides

== ENCOUNTER 2019-12-03 14:55 | Inpatient (IN) | payer OTHER ==
[~2019-12-03] VITALS: Ht 157.5 cm; Wt 97.5 kg
[~2019-12-03 14:55] MED LIST changes: +CLINDAMYCIN HC150 MG PO; +NORCO 5-325 TA1 EAC1 PO
[2019-12-03 14:57] VITALS: BP 132/73
[2019-12-03 16:27] LABS: URINE BILIRUBIN NEGATIVE (Negative); URINE BLOOD TRACE (Negative); URINE COLOR YELLOW; URINE GLUCOSE-RANDOM* NEGATIVE (Negative); URINE KETONES NEGATIVE (Negative); URINE LEUKOCYTES-REFLEX NEGATIVE (Negative); URINE NITRITE-REFLEX POSITIVE (Negative); URINE PROTEIN (DIPSTICK) NEGATIVE (Negative); URINE SPECIFIC GRAVITY >= 1.030 (1.005-1.035); URINE UROBILINOGEN 0.2 E.U./dl (0.2-1.0)
[2019-12-03 16:29] LABS: SQUAMOUS 0-3 Few /LPF (0-3); URINE CLARITY CLOUDY
[2019-12-03 16:30] LABS: AMORPHOUS PHOSPHATES Many /LPF (None Seen); BACTERIA-REFLEX >30 Many /HPF (None Seen); CRYSTALS None Seen /LPF (None Seen); URINE RBC None Seen /HPF (0-2); URINE WBC-REFLEX None Seen /HPF (0-5)
[2019-12-03 16:37] LABS: ABSOLUTE NEUTROPHILS 5.9 thou/uL (1.4-8.2); BASOPHILS 1.2 % (0.0-2.0); EOSINOPHILS 2.1 % (0.0-3.0); HEMATOCRIT 35.9 % (37.0-47.0); HEMOGLOBIN 12.1 gm/dL (12.0-15.0); LYMPHOCYTES 15.2 % (24.0-44.0); MCH 26.7 pg (26.0-34.0); MCHC 33.6 g/dL (28.0-37.0); MCV 79.4 fL (80.0-100.0); MONOCYTES 8.1 % (1.0-8.0); PLATELET COUNT 218 thou/uL (150-400); POLYS 73.4 % (36.0-66.0); RBC 4.51 mil/uL (4.20-5.00); RDW 14.8 % (10.5-14.5); WBC 8.1 thou/uL (4.0-11.0)
[2019-12-03 16:50] LABS: ANION GAP 8 mmol/L (7-16); BUN 15 mg/dL (7-18); CALCIUM 8.5 mg/dL (8.5-10.1); CHLORIDE 103 mmol/L (98-107); CO2 27 mmol/L (21-32); CREATININE 1.5 mg/dL (0.6-1.0); GLUCOSE 103 mg/dL (74-106); POTASSIUM 4.5 mmol/L (3.5-5.1); SODIUM 138 mmol/L (136-145)
[2019-12-03 17:00] LABS: ALBUMIN 3.6 g/dL (3.4-5.0); DIRECT BILIRUBIN < 0.1 mg/dL (<0.1-0.2); LIPASE 29 U/L (73-393); SGOT 19 U/L (15-37); SGPT 14 U/L (30-65); TOTAL BILIRUBIN 0.4 mg/dL (0.2-1.0); TROPONIN-I <0.06 ng/mL (<0.06)
[2019-12-04 01:09] VITALS: BP 94/58
[2019-12-04 01:16] VITALS: BP 107/74
--- NOTE | 2019-12-04 04:31 | NUR ---
PT WAS ADMITTED TO THE UNIT FROM THE ER IN A STABLE CONDITION.PT C/O PAIN ON HER BLE,MANAGED WITH MED.ADMISSION HX,EDUCATION AND ASSESSMENT COMPLETED.PT'S RLE RED,SWOLLEN AND TENDER TO TOUCH.PT UP WITH SBA AND CANE TO THE BR.PT RESTING ON HER BED AT THIS TIME.CALL LIGHT WITHIN REACH.
[2019-12-04 08:39] VITALS: BP 109/59
--- NOTE | 2019-12-04 09:26 | EKG ---
[facility] [place] [address] [address] [place] [address] ELECTROCARDIOGRAM REPORT Name: TERI CRUZ Room #: 443- ADM IN M.R.#: [id number] Admission: 12/03/19 Attend Phys: Antonia Ann Discharge: Date of : 51 Report #: [id number] THIS REPORT FOR: cc: Jeormy Singh James V. DO Lundgren,Floyd Rosenthal MD [facility] ~ THIS REPORT FOR: //name// [facility] ED Test Date: 2019-12-03 Test Time: 16:09:46 Pat Name: TERI CRUZ Department: Room: 3 Gender: F Barrer And Tacker: NO : 1955 Requested By: Antonia Ann Order Number: [id number] MD: Floyd Santos Measurements Intervals [place] Rate: 93 P: 112 NE: 240 QRS: -6 QRSD: 145 T: 51 QT: 386 QTc: 481 Interpretive Statements Atrial flutter with a controlled ventricular response Right ventricular conduction delay IVCD, consider atypical RBBB Compared to ECG 02/23/2019 05:06:31 No significant change was found Electronically Signed On 12-04-2019 9:26:07 CDT by Floyd Santos [email or web address] <ELECTRONICALLY SIGNED> By: Floyd Santos MD, [facility] 12/04/19 0926 1609 1609 Floyd Santos MD, [facility] /EPI
--- NOTE | 2019-12-04 12:31 | 2DMMODE ---
[facility] [place] [address] 2 D/M-MODE ECHOCARDIOGRAM Name: TERI CRUZ Room #: 443-P ADM IN M.R.#: [id number] Admission: 12/03/19 Attend Phys: Antonia Ann Discharge: Date of : 51 Report #: [id number] THIS REPORT FOR: cc: Jeromy Singh,Floyd Reyes MD [facility] ~ APPROVED REPORT Study performed: 12/04/2019 11:14:41 EXAM: Comprehensive 2D, Doppler, and color-flow Echocardiogram Patient Location: Bedside Room #: 443 Status: routine BSA: 1.95 HR: 92 bpm BP: 109/59 mmHg Rhythm: Atrial Fibrillation Other Information Study Quality: Good Indications Atrial Fibrillation Dyspnea Hx: Afib, HTN, HLP, CHF, COPD. 2D Dimensions RVDd: 36.39 mm IVSd: 11.17 (7-11mm) LVOT Diam: 20.64 (18-24mm) LVDd: 45.14 mm PWd: 12.11 (7-11mm) Ascending Ao: 33.33 (22-36mm) LVDs: 29.42 (25-40mm) Aortic Root: 38.17 mm Volumes Left Atrial Volume (Systole) Single Plane 4CH: 90.41 mL Single Plane 2CH: 105.32 mL LA ESV Index: 53.00 mL/m2 Aortic Valve AoV Peak Moiz.: 1.72 m/s AO Peak Gr.: 11.80 mmHg LVOT Max P.03 mmHg LVOT Max V: 1.33 m/s [facility] [address] [place] [address] 2 D/M-MODE ECHOCARDIOGRAM Name: TERI CRUZ Room #: 443-P [facility]#: [id number] Admission: 12/03/19 Attend Phys: Antonia Joseph Discharge: Date of : 51 Report #: [id number] DAVID Vmax: 2.58 cm2 Mitral Valve MV Decel. Time: 215.10 ms MV E Max Moiz.: 1.79 m/s Pulmonary Valve PV Peak Moiz.: 1.00 m/s PV Peak Gr.: 3.98 mmHg Tricuspid Valve TR Peak Moiz.: 3.41 m/s TR Peak Gr.: 46.40 mmHg Left Ventricle The left ventricle is normal size. There is normal LV segmental wall motion. Mild concentric left ventricular hypertrophy. Left ventricular systolic function is normal. LVEF is 65%. This study is not technically sufficient to allow evaluation of the LV diastolic function due to atrial fibrillation. Right Ventricle The right ventricle is normal size. The right ventricular systolic function is normal. Atria Left atrium is severely dilated. Right atrium is mildly dilated. Aortic Valve The aortic valve is trileaflet, mildy sclerotic No aortic regurgitation is present. There is no aortic valvular stenosis. Mitral Valve Mild mitral annular calcification. Moderate mitral regurgitation. No evidence of mitral valve stenosis. Tricuspid Valve The tricuspid valve is normal in structure. Mild to moderate tricuspid regurgitation. Estimatated PAP is 50mmHg Pulmonic Valve The pulmonary valve is normal in structure. Trace pulmonic regurgitation. Great Vessels [facility] [address] [place] [address] 2 D/M-MODE ECHOCARDIOGRAM Name: TERI CRUZ Room #: 443-P ADM IN [facility].#: [id number] Admission: 12/03/19 Attend Phys: Antonia Joseph Discharge: Date of : 51 Report #: [id number] The aortic root is normal in size. The ascending aorta is normal in size. The inferior vena cava is not well visualized. Pericardium There is no pericardial effusion. <Conclusion> Left ventricular systolic function is normal. There is normal LV segmental wall motion. LVEF is 65%. Left atrium is severely dilated. The aortic valve is trileaflet, mildy sclerotic. No aortic regurgitation or stenosis Mild mitral annular calcification. Moderate to moderately severe mitral regurgitation. Mild to moderate tricuspid regurgitation. Estimatated pulmonary artery pressure of 50mmHg There is no pericardial effusion. <ELECTRONICALLY SIGNED> By: Floyd Santos MD, [facility] 12/04/19 1230 1230 1230 Floyd Santos MD, FACC /INF
[2019-12-04 13:32] VITALS: BP 109/59
--- NOTE | 2019-12-04 14:04 | NUR ---
ORDERS RECEIVED FOR EVAL AND TREAT. Pt ALREADY UP AD HAO. OBSERVED Pt STAND AND WALK IN HER ROOM WITHOUT DIFFICULTY. Pt DECLINING FORMAL P.T. EVAL STATING SHE IS MOVING FINE.
--- NOTE | 2019-12-04 14:11 | NUR ---
PT IS A&OX4, VSS, AMBULATES STAND BY, CONTINENT TO BOWEL AND BLADDER, LEFT HAND IV SL. RESPIRATORY THERAPY TO SEE PT FOR COPD, INFECTIOUS DISEASE, AND PROGRAM MEDICAL DIRECTOR WILL SEE PT. PT IS ACHS. PT HAS SWELLING BILATERAL, RED, WARM, AND TENDER TO TOUCH. WILL CONTINUE TO MONITOR.
--- NOTE | 2019-12-04 15:42 | NUR ---
ASSESSMENT: CM REVIEWED CHART AND SPOKE WITH PATIENT. PT WAS ADMITTED FOR UTI/CELLULITIS. PT REPORTS THAT SHE LIVES IN A SENIOR APT ALONE. PT REPORTS SHE HAS NO STEPS SHE HAS TO USE. PT REPORTS SHE HAS A WHEELCHAIR AT HOME SHE USES DUE TO HER LEG HURTING BUT ALSO HAS A WALKER AND CANE. PT REPORTS HAVING A GRAB BAR AND SHOWER CHAIR. PT REPORTS SHE HAS A CAREGIVER THAT COMES 5 DAYS A WEEK FOR ABOUT 6 HOURS PER DAY THROUGH HER MEDICAID. PT REPORTS SHE HAS ALSO HAD HH IN THE PAST ([facility] ). PT/OT HAS BEEN ORDERED TO SEE PATIENT. OT RECOMMENDED HOME AND PT STATED PT WAS UP IN HER ROOM. PT REPORTS SHE IS AGREEABLE FOR HH IF NEEDED AND WOULD PREFER TO USE [facility] AGAIN. CM FAXED REFERRAL. CM WILL CONTINUE TO FOLLOW TO ASSIST NEEDED.
[2019-12-04 17:22] VITALS: BP 139/57
[2019-12-04 20:35] VITALS: BP 112/64
--- NOTE | 2019-12-05 05:13 | NUR ---
RECEIVED CARE OF THIS PATIENT AT 1900. PATIENT ALERT AND ORIENTED X4. PATIENT IS A SBA ONLY. TRANSFERRED HER TO ANOTHER ROOM BECAUSE HER INITIAL ROOM HAD NO WORKING TV. PATIENT WAS GETTING VERY ANXIOUS JUST LOOKING AT THE YEE. HAS EDEMA LYDIA LOWER EXT WITH THE R BEING WORSE. HAS AN ABRASION IN L KNEE. C/O PAIN, MED GIVEN. SLEPT LITTLE THIS SHIFT.
[2019-12-05 05:45] LABS: ALBUMIN 3.8 g/dL (3.4-5.0); CALCIUM 8.5 mg/dL (8.5-10.1); CREATININE 1.7 mg/dL (0.6-1.0); PHOSPHORUS 4.7 mg/dL (2.5-4.9); POTASSIUM 4.3 mmol/L (3.5-5.1)
[2019-12-05 08:15] VITALS: BP 109/65
[2019-12-05] MEDS ORDERED: HYDROCODON-ACE1 EAC7 PO (09:57)
[2019-12-05] MEDS ORDERED: LAMISIL AT 1% C12 G1 TOP (09:57)
[2019-12-05] MEDS ORDERED: CEFUROXIME500 MG PO (09:57)
--- NOTE | 2019-12-05 10:23 | EKG ---
[facility] [place] [address] ELECTROCARDIOGRAM REPORT Name: TERI CRUZ Room #: 445- ADM IN M.R.#: [id number] Admission: 12/03/19 Attend Phys: Antonia Ann Discharge: Date of : 51 Report #: [id number] THIS REPORT FOR: cc: Jeromy Singh James V. DO Couchonnal, Luis F. MD ~ THIS REPORT FOR: //name// [facility] Test Date: 2019-12-05 Test Time: 09:11:17 Pat Name: TERI CRUZ Department: Room: [facility] Gender: F Slubber Machine Operator: KALEB : 1955 Requested By: Nirali Muñoz Order Number: [id number] MD: Brendon Sheikh Measurements Intervals [place] Rate: 93 P: 97 HI: 226 QRS: -5 QRSD: 124 T: QT: 382 QTc: 476 Interpretive Statements Atrial flutter Nonspecific repol abnormality, lateral leads Compared to ECG 12/03/2019 16:09:46 Electronically Signed On 12-05-2019 10:23:45 CDT by Brendon Sheikh [email or web address] <ELECTRONICALLY SIGNED> By: Brendon Sheikh MD 12/05/19 1023 0 Brendon Sheikh MD /EPI
[2019-12-05 12:27] VITALS: BP 112/64
[2019-12-05 14:17] VITALS: BP 112/64
--- NOTE | 2019-12-05 14:35 | NUR ---
ON-GOING ASSESSMENT: CM REVIEWED CHART AND PT HAS ORDERS TO DISCHARGE HOME TODAY WITH HOME HEALTH. CM CONTACTED [facility] WHO REPORTS THEY CAN NOT START PT IN SERVICES UNTIL WEDNESDAY. CM MET WITH PATIENT TO DISCUSS OTHER HH OPTIONS THAT COULD SCHEDULE HER SOONER. PT HAS NO PREFERENCE. CM SENT REFERRAL TO [facility] AND THEY CAN ACCEPT PATIENT. CM FAXED [facility] DISCHARGE PAPERWORK AND CONFIRMED THEY RECEIVED IT.
--- NOTE | 2019-12-05 14:45 | NUR ---
PT ASSESSED AT START OF SHIFT. HEART RATE IRREGULARLY IRREGULAR. NO C/O CHEST PAIN OF SOB. DR. JACK IN TO SEE PT THIS AM. PLANNED FOR POSSIBLE OUT-PT CARDIOVERSION. COVID SWAB DONE AND SENT TO LAB AT 1315. OPTIFOAM TO RT KNEE AND LT ANKLE PER ORDERS. PT DISCHARGE HOME W/ HOME HEALTH TO FOLLOW.
--- NOTE | 2019-12-06 13:57 | HC ---
[facility] [place] [address] CONSULTATION Name: TERI CRUZ Room #: 445-P [facility] IN M.R.#: [id number] Admission: 12/03/19 Attend Phys: Antonia Ann Discharge: 12/05/19 Date of : 51 Report #: [id number] THIS REPORT FOR: cc: Jeromy Singh,Pedro West MD ~ CC: Jeromy Ann DATE OF SERVICE: 12/04/2019 CHIEF COMPLAINT: Cellulitis, right lower leg. HISTORY OF PRESENT ILLNESS: This is a 64-year-old female patient who was admitted to the hospital with redness and swelling to her lower extremities. She states that she has been having symptoms for about a week and has been admitted for further evaluation and treatment. I have been asked to see her with regard to care of her legs. PAST MEDICAL HISTORY: Positive for atrial fibrillation, anxiety, chronic pain, gastroesophageal reflux. PAST SURGICAL HISTORY: Previous surgeries to the left ankle and previous hysterectomy. SOCIAL HISTORY: The patient is a daily smoker and denies recreational drug use. Denies alcohol use. FAMILY HISTORY: Noncontributory. MEDICATIONS: Include Eliquis, DuoNeb, Singulair, Flonase, MiraLax, Pacerone, Xanax, Ventolin and clindamycin. ALLERGIES: SULFA. REVIEW OF SYSTEMS: CONSTITUTIONAL: The patient denies fever, chills or weight loss. NEUROLOGICAL: The patient denies focal weakness, numbness or tingling. EYES: The patient denies any visual changes, redness or drainage. ENT: The patient denies earache, nasal drainage or sore throat. CARDIOVASCULAR: The patient denies chest pain, palpitations or diaphoresis. PULMONARY: The patient denies cough or shortness of breath. GASTROINTESTINAL: The patient denies nausea, vomiting, diarrhea or abdominal pain. ORTHOPEDIC: The patient denies pain or swelling in lower extremities. Other systems are negative. [facility] [address] [place] [address] CONSULTATION Name: TERI CRUZ Room #: 445-P [facility] IN [facility].#: [id number] Admission: 12/03/19 Attend Phys: Antonia Beckham Tika Discharge: 12/05/19 Date of : 51 Report #: [id number] PHYSICAL EXAMINATION: VITAL SIGNS: At this time include temperature 36.8, pulse 97, respiratory rate 16, blood pressure 113/57. GENERAL: This is a well-developed female patient who appears to be in minimal distress. HEENT: Head normocephalic. Nose and throat are clear. NECK: Supple. LUNGS: Clear. HEART: Irregular without murmur. ABDOMEN: Soft. Bowel sounds present. EXTREMITIES: Lower extremities demonstrate erythema to the lower extremities, mostly on the right side compared to the left. There appears to be no obvious open ulceration at this time. She does have some abrasions to her left knee and medial ankle. These appear to be quite superficial. NEUROLOGIC: The patient is alert, oriented and appropriate. LABORATORY STUDIES: Include sodium 138, potassium 4.5, chloride 103, CO2 of 27, BUN 15, creatinine 1.5, glucose 103. Lactic acid is 1.2, albumin is 3.6. CLINICAL IMPRESSION: 1. Cellulitis, right lower leg. 2. Abrasions to the left knee and medial ankle. 3. Chronic obstructive pulmonary disease. 4. Atrial fibrillation by history. RECOMMENDATIONS: At this point in time, recommend continuation of antibiotics, elevation of the legs. Recommend AmLactin lotion to both lower extremities. Bordered foam to the knee and ankle. Also counseling for smoking cessation provided. I appreciate being asked to see her in consultation. <ELECTRONICALLY SIGNED> By: Pedro Babcock MD 12/06/19 1357 0803 0944 Pedro Babcock MD /nt
--- NOTE | 2019-12-07 11:46 | NUR ---
CM RECEIVED A CALL FROM [facility] WHO REPORTS THAT THEY WILL SEE THE PATIENT THIS WEDNESDAY. CM REACHED OUT TO PT [facility] WAS ARRANGED FOR PATIENT DUE TO THEM BEING ABLE TO SEE PATIENT SOONER. PT REPORTS THAT [facility] SAID [facility] WOULD BE SEEING HER. PT REPORTS SHE IS DOING WELL AND OK WITH [facility] COMING WEDNESDAY BECAUSE SHE HAS HAD THEM IN THE PAST AND PREFERS THEM. CM FAXED D/C ORDERS TO [facility] AND CONFIRMED THEY RECEIVED IT.
== END 2019-12-05 17:08 | disposition home health service (06) | DRG 602 ==
LOC: ER 14:55 → EROBS 18:52 → 4S 18:52
PROVIDERS: Nurse Practitioner; ADMIT Hospitalist; ATTEND Hospitalist
DX: L03.115 Cellulitis of right lower limb (principal); I50.31 Acute diastolic (congestive) heart failure; N39.0 Urinary tract infection, site not specified; J96.11 Chronic respiratory failure with hypoxia; I48.92 Unspecified atrial flutter; I13.0 Hypertensive heart and chronic kidney disease with heart failure and stage 1 through stage 4 chronic kidney disease, or unspecified chronic kidney disease; N17.9 Acute kidney failure, unspecified; I48.91 Unspecified atrial fibrillation; Z79.01 Long term (current) use of anticoagulants; J44.9 Chronic obstructive pulmonary disease, unspecified; K21.9 Gastro-esophageal reflux disease without esophagitis; G89.29 Other chronic pain; M25.569 Pain in unspecified knee; F41.9 Anxiety disorder, unspecified; Z96.652 Presence of left artificial knee joint; L03.116 Cellulitis of left lower limb; F17.210 Nicotine dependence, cigarettes, uncomplicated; I27.20 Pulmonary hypertension, unspecified; G47.00 Insomnia, unspecified; M19.90 Unspecified osteoarthritis, unspecified site; I89.0 Lymphedema, not elsewhere classified; B35.3 Tinea pedis; S80.212A Abrasion, left knee, initial encounter; S90.512A Abrasion, left ankle, initial encounter; X58.XXXA Exposure to other specified factors, initial encounter; B96.20 Unspecified Escherichia coli [E. coli] as the cause of diseases classified elsewhere; Z20.828 Contact with and (suspected) exposure to other viral communicable diseases; R63.4 Abnormal weight loss; N18.9 Chronic kidney disease, unspecified; Z90.710 Acquired absence of both cervix and uterus; Z88.1 Allergy status to other antibiotic agents; Z88.2 Allergy status to sulfonamides; Z79.899 Other long term (current) drug therapy; Z95.1 Presence of aortocoronary bypass graft; Z68.39 Body mass index [BMI] 39.0-39.9, adult; Y93.89 Activity, other specified; Y92.89 Other specified places as the place of occurrence of the external cause; Y99.8 Other external cause status
CPT/HCPCS: 10195

== ENCOUNTER 2020-03-17 21:12 | Inpatient (IN) | payer OTHER ==
[~2020-03-17] VITALS: Ht 157.5 cm; Wt 90.7 kg
[~2020-03-17 21:12] MED LIST changes: +CEFUROXIME500 MG PO; +HYDROCODON-ACE1 EAC7 PO; +LAMISIL AT 1% C12 G1 TOP
[2020-03-17 21:19] VITALS: BP 124/78
[2020-03-17 21:57] LABS: ABSOLUTE NEUTROPHILS 4.8 thou/uL (1.4-8.2); BASOPHILS 0.8 % (0.0-2.0); EOSINOPHILS 1.6 % (0.0-3.0); HEMATOCRIT 34.1 % (37.0-47.0); HEMOGLOBIN 11.4 gm/dL (12.0-15.0); LYMPHOCYTES 17.6 % (24.0-44.0); MCH 26.2 pg (26.0-34.0); MCHC 33.4 g/dL (28.0-37.0); MCV 78.4 fL (80.0-100.0); MONOCYTES 11.8 % (1.0-8.0); PLATELET COUNT 202 thou/uL (150-400); POLYS 68.2 % (36.0-66.0); RBC 4.35 mil/uL (4.20-5.00); RDW 15.1 % (10.5-14.5)
[2020-03-17 22:10] LABS: ANION GAP 8 mmol/L (7-16); BUN 20 mg/dL (7-18); CALCIUM 8.5 mg/dL (8.5-10.1); CHLORIDE 103 mmol/L (98-107); CO2 27 mmol/L (21-32); CREATININE 1.5 mg/dL (0.6-1.0); GLUCOSE 101 mg/dL (74-106); POTASSIUM 5.4 mmol/L (3.5-5.1); SODIUM 138 mmol/L (136-145)
[2020-03-17 22:20] LABS: ALBUMIN 3.4 g/dL (3.4-5.0); DIRECT BILIRUBIN < 0.1 mg/dL (<0.1-0.2); SGOT 27 U/L (15-37); SGPT 18 U/L (30-65); TOTAL BILIRUBIN 0.4 mg/dL (0.2-1.0); TOTAL PROTEIN 6.6 g/dL (6.4-8.2); TROPONIN-I <0.06 ng/mL (<0.06)
--- NOTE | 2020-03-18 07:39 | EKG ---
[facility] [place] [address] ELECTROCARDIOGRAM REPORT Name: TERI CRUZ Room #: 170-5 ADM IN M.R.#: [id number] Admission: 03/17/20 Attend Phys: China Brasher MD Discharge: Date of : 51 Report #: [id number] THIS REPORT FOR: cc: Jeromy Singh James V. DO Santiago, Patrick MD [facility] ~ THIS REPORT FOR: //name// [facility] ED Test Date: 2020-03-17 Test Time: 21:31:24 Pat Name: TERI CRUZ Department: Room: [facility] Gender: F Materials Analyst: tbarnes2 : 1955 Requested By: Tim Monteiro Order Number: [id number] MD: Osman Rodriguez Measurements Intervals [place] Rate: 89 P: 94 CA: 246 QRS: -22 QRSD: 132 T: 59 QT: 381 QTc: 464 Interpretive Statements Sinus rhythm Prolonged CA interval Right bundle branch block Probable RV involvement, suggest recording right precordial leads Compared to ECG 12/05/2019 09:11:17 First degree AV block now present Right bundle-branch block now present Atrial flutter no longer present Early repolarization no longer present Electronically Signed On 03-18-2020 7:38:59 FOREIGN EXCHANGE CLERK by Osman Rodriguez [email or web address] <ELECTRONICALLY SIGNED> By: Osman Rodriguez MD, [facility] 03/18/20 0738 30 30 Osman Rodriguez MD, [facility] /EPI
--- NOTE | 2020-03-18 15:10 | EKG ---
[facility] [place] [address] ELECTROCARDIOGRAM REPORT Name: TERI CRUZ Room #: 1705 ADM IN M.R.#: [id number] Admission: 03/17/20 Attend Phys: China Brasher MD Discharge: Date of : 51 Report #: [id number] THIS REPORT FOR: cc: Jeromy Singh James V. DO Santiago, Patrick MD [facility] ~ THIS REPORT FOR: //name// [facility] ED Test Date: 2020-03-18 Test Time: 13:09:29 Pat Name: TERI CRUZ Department: Room: 170 5 Gender: F Metalizing Supervisor: RAYSHAWN : 1955 Requested By: China Brasher Order Number: [id number] MD: Osman Rodriguez Measurements Intervals [place] Rate: 94 P: 97 NH: 222 QRS: -22 QRSD: 106 T: 102 QT: 279 QTc: 349 Interpretive Statements Sinus rhythm Prolonged NH interval Abnormal R-wave progression, late transition Probable RV involvement, suggest recording right precordial leads Compared to ECG 03/17/2020 21:31:24 Right bundle-branch block no longer present Electronically Signed On 03-18-2020 15:10:11 ENVIRONMENTAL FIELD OFFICE MANAGER by Osman Rodriguez [email or web address] <ELECTRONICALLY SIGNED> By: Osman Rodriguez MD, FACC 03/18/20 1510 1309 1309 Osman Rodriguez MD, FACC /EPI
[2020-03-18 16:13] VITALS: BP 121/68
--- NOTE | 2020-03-18 16:26 | NUR ---
IST ATTEMPT TO CALL FOR INPATIENT REPORT, RECIEVING RN IN THE MIDDLE OF PT CARE, WILL RETURN CALL MAXIMINO
[2020-03-18 16:37] VITALS: BP 115/58
[2020-03-18 17:10] VITALS: BP 123/95
--- NOTE | 2020-03-18 18:34 | NUR ---
pt admitted at 1710, assessed, very talkative and pleasant, wants her cough syrup ordered, concerned about her yeast infection and how to treat it, HR in 130s, paged DR HAN FOR CARDIO CONSULT AND COUGH MED. ORIENTED TO ROOM, STAFF, AND POC, PT VERBALIZED UNDERSTANDING
[2020-03-19 04:30] VITALS: BP 112/73
[2020-03-19 04:53] LABS: HEMATOCRIT 35.4 % (37.0-47.0); HEMOGLOBIN 11.3 gm/dL (12.0-15.0); MCH 25.4 pg (26.0-34.0); MCHC 31.8 g/dL (28.0-37.0); MCV 79.9 fL (80.0-100.0); RBC 4.43 mil/uL (4.20-5.00); RDW 15.2 % (10.5-14.5); WBC 13.6 thou/uL (4.0-11.0)
[2020-03-19 05:37] LABS: CALCIUM 9.3 mg/dL (8.5-10.1); CREATININE 1.6 mg/dL (0.6-1.0); MAGNESIUM 2.1 mg/dL (1.8-2.4)
[2020-03-19 08:21] VITALS: BP 131/117
[2020-03-19 12:38] VITALS: BP 127/68
[2020-03-19 15:31] VITALS: BP 124/64
[2020-03-19 20:26] VITALS: BP 105/62
[2020-03-19 23:19] VITALS: BP 110/65
[2020-03-20 04:25] VITALS: BP 141/90
--- NOTE | 2020-03-20 06:15 | NUR ---
PATIENT HAS HAD A CONSTANT COUGH LAST NIGHT. PATIENT GIVEN ALL PRNS REQUESTED. PATIENT STATES SHE THINKS IF SHE CAN GET SOME MORPHINE IT MIGHT HELP WITH HER COUGH. PATIENT STATES THAT TESSALON PERLES DO NOT HELP, AND NOTHING ELSE IS SEEMING TO HELP. PATIENT IS ALSO HAVING DIARRHEA. I SPOKE WITH MARINE JAMAING THIS, AND PATIENTS REQUEST FOR MORPHINE FOR COUGHING. IMODIUM ORDERED. PATIENT STATES THAT UNLESS SHE GETS MORE NARCOTICS SHE WILL BE LEAVING THIS MORNING. I NOTICED A FISSURE IN PATIENT'S GLUTEAL CRACK. PATIENT ENCOURAGED TO STOP SMOKING.
[2020-03-20 07:52] VITALS: BP 136/78
[2020-03-20 11:12] VITALS: BP 124/87
--- NOTE | 2020-03-20 13:15 | 2DMMODE ---
[address] [address] 2 D/M-MODE ECHOCARDIOGRAM Name: TERI CRUZ Room #: 207-P ADM IN M.R.#: [id number] Admission: 03/17/20 Attend Phys: Ede Vu MD Discharge: Date of : 51 Report #: [id number] THIS REPORT FOR: cc: Jeromy Singh James V. DO Santiago, Patrick MD [facility] ~ APPROVED REPORT Study performed: 03/20/2020 11:47:50 EXAM: Comprehensive 2D, Doppler, and color-flow Echocardiogram Patient Location: Bedside Room #: 207 Status: routine BSA: 1.91 HR: 98 bpm BP: 136/78 mmHg Rhythm: Atrial Fibrillation Other Information Study Quality: Good Indications COPD Atrial Fibrillation Dyspnea Hypertension/HDD 2D Dimensions IVC: 28.00 mm Tricuspid Valve TR Peak Moiz.: 3.10 m/s TR Peak Gr.: 38.39 mmHg PA Pressure: 48.00 mmHg Left Ventricle The left ventricle is normal size. There is normal LV segmental wall motion. There is normal left ventricular wall thickness. The left ventricular systolic function is normal. The left ventricular ejection fraction is within the normal range. LVEF is 55-60%. This study is not technically sufficient to allow evaluation of the LV diastolic function due to atrial fibrillation. [address] [address] 2 D/M-MODE ECHOCARDIOGRAM Name: TERI CRUZ Room #: 207-P ADM IN M.R.#: [id number] Admission: 03/17/20 Attend Phys: Ede Vu MD Discharge: Date of : 51 Report #: [id number] Right Ventricle The right ventricle is normal size. The right ventricular systolic function is normal. Atria Left atrium is dilated. Right atrium is dilated. Aortic Valve The aortic valve is normal in structure. No aortic regurgitation is present. There is no aortic valvular stenosis. Mitral Valve The mitral valve is normal in structure. Mild to moderate mitral regurgitation. No evidence of mitral valve stenosis. Tricuspid Valve The tricuspid valve is normal in structure. There is tricuspid regurgitation. Estimated PAP 38 mmHg. There is moderate pulmonary hypertension. Pulmonic Valve The pulmonary valve is normal in structure. Great Vessels The aortic root is normal in size. IVC is dilated and collapses <50% with inspiration. Pericardium There is no pericardial effusion. <Conclusion> Normal left atrial size and the wall thickness Ejection fraction 55%, no obvious segmental wall motion abnormality Normal right ventricular size/ function Moderate to severe left atrial enlargement Moderate right atrial enlargement Normal aortic valve structure and function Mild/moderate mitral valve insufficiency Moderate tricuspid valve insufficiency Pulmonary systolic pressure estimated 38 mmHg [facility] [address] [place] [address] 2 D/M-MODE ECHOCARDIOGRAM Name: TERI CRUZ Room #: 207-P ADM IN M.R.#: [id number] Admission: 03/17/20 Attend Phys: Ede Vu MD Discharge: Date of : 51 Report #: [id number] Moderately dilated IVC but responsive to respiration No pericardial effusion <ELECTRONICALLY SIGNED> By: Osman Rodriguez MD, FACC 03/20/201314 14 14 Osman Rodriguez MD, FACC /INF
[2020-03-20 15:13] VITALS: BP 122/79
[2020-03-20 17:15] VITALS: BP 122/79
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
[2020-03-20 19:40] VITALS: BP 121/74
[2020-03-21 03:52] VITALS: BP 101/62
--- NOTE | 2020-03-21 05:05 | NUR ---
PATIENT SLEPT THROUGH ABOUT HALF OF THE NIGHT. A&OX4. PERSISTANT COUGH THROUGHOUT THE NIGHT. PRN MEDS GIVEN PER ORDERS. UP TO BEDSIDE COMMODE, STEADY GAIT. ON 3L OF OXYGEN. SR/SA ON THE MONITOR. NAUSEA MEDS GIVEN PER ORDERS. CONTINUING TO ASSESS ACCORDING TO POC AND MONITORING CLOSELY.
[2020-03-21 08:39] VITALS: BP 125/83
--- NOTE | 2020-03-21 10:07 | NUR ---
FAXED REFERRAL TO [facility] SPOKE WITH MAO IN INTAKE SHE RECEIVED REFERRAL AND [place] ACCEPT AT [place].
[2020-03-21 12:08] VITALS: BP 119/75
[2020-03-21 15:34] VITALS: BP 130/80
--- NOTE | 2020-03-21 18:23 | NUR ---
ASSESSMENT DOCUMENTED, VSS, MEDICATED FOR PAIN AND NAUSEA NEEDED. MAKES HER NEEDS KNOWN. PROGRESSING TOWARDS GOALS AND WILL CONTINUE WITH POC.
[2020-03-21 20:01] VITALS: BP 118/80
[2020-03-22 04:00] VITALS: BP 108/71
[2020-03-22 08:26] VITALS: BP 105/77
[2020-03-22 12:09] VITALS: BP 91/59
[2020-03-22 15:10] VITALS: BP 90/56
--- NOTE | 2020-03-22 19:15 | NUR ---
ASSUMED CARE OF PT AT SHIFT CHANGE. ASSESSMENTS CHARTED. MEDS GIVEN PER JUN. PT A&OX4, C/O PAIN TREATED WITH PO MEDS WITH PARTIAL RELIEF. PLAN FOR DISCHARGE TOMORROW. WILL CONTINUE TO MONITOR AND FOLLOW POC.
[2020-03-22 19:45] VITALS: BP 121/78
[2020-03-23 04:00] VITALS: BP 138/88
--- NOTE | 2020-03-23 06:00 | NUR ---
ASSUMED CARE OF THE PATIENT LATE IN SHIFT; AOX4/ AMBULATES STEADY WITH CANE; COUGH/ SOB WITH ACTIVITY/ ROOM AIR; PRN MANAGEMENT OF COUGH, NAUSEA, AND PAIN WITH SOME SUCCESS; PLAN IS FOR PATIENT TO D/C TO HOME TODAY BUT EXPRESSED WANTING TO STAY ANOTHER DAY; WILL CONTINUE TO MONITOR.
[2020-03-23 08:47] VITALS: BP 130/84
[2020-03-23 09:15] LABS: HEMATOCRIT 35.5 % (37.0-47.0); HEMOGLOBIN 11.5 gm/dL (12.0-15.0); MCH 25.6 pg (26.0-34.0); MCHC 32.3 g/dL (28.0-37.0); MCV 79.4 fL (80.0-100.0); RBC 4.47 mil/uL (4.20-5.00)
[2020-03-23 09:30] LABS: CALCIUM 9.1 mg/dL (8.5-10.1); CREATININE 1.7 mg/dL (0.6-1.0); POTASSIUM 4.9 mmol/L (3.5-5.1)
[2020-03-23 12:04] VITALS: BP 96/59
[2020-03-23 15:13] VITALS: BP 104/70
--- NOTE | 2020-03-23 17:42 | NUR ---
ASSUMED CARE OF PT AT SHIFT CHANGE. ASSESSMENTS CHARTED. MEDS GIVEN PER JUN. PT A&OX4, C/O PAIN TREATED WITH PO MEDS WITH PARTIAL RELIEF. NO DISTRESS NOTED DURING SHIFT. PT ON 2L O2, COUGH CONTINUES. CARDIOLOGY KEPT PT ONE MORE DAY D/T OCCASIONAL ABNORMAL HEART RHYTHM. PLAN TO DC TOMORROW HOME WITH HH. WILL CONTINUE TO MONITOR AND FOLLOW POC.
[2020-03-23 19:00] VITALS: BP 103/67
[2020-03-24 05:00] VITALS: BP 116/66
--- NOTE | 2020-03-24 07:17 | NUR ---
PATIENT SLEPT THROUGH MOST OF THE NIGHT. MEDS GIVEN PER ORDERS. PT UP AD HAO. USES BEDSIDE COMMODE. ON 2L. SR ON THE MONITOR; NO PAUSES NOTED. PROGRESSING TOWARD DISCHARGE HOME TODAY. CONITUE TO ASSESS ACCORDING TO POC.
[2020-03-24 07:18] VITALS: BP 110/69
[2020-03-24] MEDS ORDERED: CARDIZEM CD 30300 M1 PO (10:40)
[2020-03-24] MEDS ORDERED: OXYCODONE HCL10 MG PO (10:41)
[2020-03-24] MEDS ORDERED: HYDROCODONE-CH115 ML PO (10:43)
[2020-03-24] MEDS ORDERED: PREDNISONE 10 M10 MG PO (10:43)
[2020-03-24 11:25] VITALS: BP 112/85
[2020-03-24 11:28] VITALS: BP 122/79
--- NOTE | 2020-03-24 16:25 | NUR ---
ASSUMED CARE OF PT AT SHIFT CHANGE. ASSESSMENTS CHARTED. MEDS GIVEN PER JUN. PT A&OX4, C/O PAIN TREATED WITH PO MEDS WITH PARTIAL RELIEF. PT ON RA D/T KINK IN . NO C/O OF SOA OR DISTRESS. DISCHARGE ORDERED AND INSTRUCTIONS COMPLETE. IV AND TELE DC'D. PT TAKEN TO ER ENTRANCE VIA WHEELCHAIR TO WAITNG FRIEND IN CAR.
[2020-03-24 16:27] VITALS: BP 122/79
== END 2020-03-24 16:40 | disposition home health service (06) | DRG 189 ==
LOC: ER 21:12 → EROBS 23:45 → 2N 23:45
PROVIDERS: Emergency Medicine; Nurse Practitioner; Nurse Practitioner Family; ADMIT Hospitalist; ATTEND Hospitalist
DX: J96.21 Acute and chronic respiratory failure with hypoxia (principal); I50.32 Chronic diastolic (congestive) heart failure; J44.1 Chronic obstructive pulmonary disease with (acute) exacerbation; I13.0 Hypertensive heart and chronic kidney disease with heart failure and stage 1 through stage 4 chronic kidney disease, or unspecified chronic kidney disease; I48.21 Permanent atrial fibrillation; L03.115 Cellulitis of right lower limb; I48.0 Paroxysmal atrial fibrillation; F41.9 Anxiety disorder, unspecified; G89.29 Other chronic pain; B37.3 Candidiasis of vulva and vagina; E87.5 Hyperkalemia; F17.200 Nicotine dependence, unspecified, uncomplicated; N18.9 Chronic kidney disease, unspecified; G47.33 Obstructive sleep apnea (adult) (pediatric); I27.23 Pulmonary hypertension due to lung diseases and hypoxia; E78.5 Hyperlipidemia, unspecified; K21.9 Gastro-esophageal reflux disease without esophagitis; Z96.652 Presence of left artificial knee joint; Z99.81 Dependence on supplemental oxygen; Z90.710 Acquired absence of both cervix and uterus; Z79.899 Other long term (current) drug therapy; Z88.2 Allergy status to sulfonamides; Z95.1 Presence of aortocoronary bypass graft; Z79.01 Long term (current) use of anticoagulants; Z20.828 Contact with and (suspected) exposure to other viral communicable diseases
CPT/HCPCS: 10081

== ENCOUNTER 2020-04-24 14:24 | Inpatient (IN) | payer OTHER ==
[~2020-04-24] VITALS: Ht 157.5 cm; Wt 102.8 kg
--- NOTE | ~2020-04-24 | EMS ---
[address] [address] EMS Patient Care Report Name: TERI CRUZ Room #: REG MAREK Quiroz#: [id number] Admission: 04/24/20 Attend Phys: Discharge: Date of : 51 Report #: [id number] THIS REPORT FOR: //name// Report Transmitted: 04/24/2020 15:39 EMS Care Summary [place], [place]/[facility] Incident [id number] @ 04/24/2020 13:55 Incident Location [id number] [place] [address] 321 Patient TERI CRUZ Female, 65 Years 1955 Patient Address [id number] [place] [address] Patient History Congestive Heart Failure (CHF),Chronic Obstructive Pulmonary Disease (COPD), Patient Allergies Sulfa, Patient Medications Unknown, Chief Complaint SHORTNESS OF BREATH Disposition Transported No Lights/[place] Dispatch Reason Breathing Problem Transported To [facility] Narrative SCENE: ON ARRIVAL PT FOUND SITTING UPRIGHT IN WHEELCHAIR IN HALLWAY OF ADDRESS PROVIDED. PT IS AWAKE AND ALERT WITH A GCS OF 15. PT C/O `SHORTNESS OF BREATH AND LEG SWELLING. PT ASSISTED TO EMS STRETCHER. [address] [address] EMS Patient Care Report Name: TERI CRUZ Room #: [facility] Edwige.#: [id number] Admission: 04/24/20 Attend Phys: Discharge: Date of : 51 Report #: [id number] AMBULANCE: PT REFUSES BREATHING TREATMENT DUE TO HEART RATE. PT REPORTS SHE HAS A HISTORY OF TACHYCARDIA AND HAS AN APPOINTMENT COMDarion G UP WITH HER DR. PT STATES HER RIGHT LEG HAS CELLULITIS AND SHE FINISHED HER ANTIBIOTICS FOR IT ON WEDNESDAY, BUT IT HAS NOT IMPROVED. PT STATES ON WEDNESDAY HER LEFT LEG BEGAN TO SWELL. PT DENIES ALL OTHER COMPLAINTS. VITALS MONITORED. PT REQUESTS TRANSPORT TO [facility].NO CHANGES. Initial Vitals @14:10P: 132,R: 20,Pain: 0/10,GCS: 15,SpO2: 92, @14:18P: 136,R: 20,BP: 106/54,GCS: 15,SpO2: 93,Revised Trauma: 12, @14:10P: 122,R: 18,BP: 111/77,Pain: 0/10,GCS: 15,Revised Trauma: 12, Assessments @14:05MENTAL:No Abnormalities,SKIN:No Abnormalities,HEENT:Head/Face: No Abnormalities,Eyes: No Abnormalities,Neck/Airway: No Abnormalities,LUNG SOUNDS:General: No Abnormalities,Left Upper: No Abnormalities,Right Upper: No Abnormalities,Left Lower: No Abnormalities,Right Lower: No Abnormalities,ABDOMEN:General: No Abnormalities,Left Upper: No Abnormalities,Right Upper: No Abnormalities,Left Lower: No Abnormalities,Right Lower: No Abnormalities,PELVIS//GI:No Abnormalities,EXTREMITIES:Right Leg: Edema,Left Leg: Edema,Left Arm: No Abnormalities,Right Arm: No Abnormalities,PULSE:NEURO:No Abnormalities,@14:24MENTAL:No Abnormalities,SKIN:No Abnormalities,HEENT:Head/Face: No Abnormalities,Eyes: No Abnormalities,Neck/Airway: No Abnormalities,LUNG SOUNDS:General: No Abnormalities,Left Upper: No Abnormalities,Right Upper: No Abnormalities,Left Lower: No Abnormalities,Right Lower: No Abnormalities,ABDOMEN:General: No Abnormalities,Left Upper: No Abnormalities,Right Upper: No Abnormalities,Left Lower: No Abnormalities,Right Lower: No Abnormalities,PELVIS//GI:No Abnormalities,EXTREMITIES:Right Leg: Edema,Left Leg: Edema,Left Arm: No Abnormalities,Right Arm: No Abnormalities,PULSE:NEURO: Impression Edema Procedures @14:04ALS AssessmentResponse: UnchangedSucceeded@14:06StretcherResponse: Unchanged@14:103-Lead ECGResponse: UnchangedSucceeded Timeline 13:52,Call Received 13:52,Dispatch Notified 13:55,Dispatched 13:56,En Route 14:02,On Scene 14:04,[place] [address] EMS Patient Care Report Name: TERI CRUZ Room #: REG [facility].#: [id number] Admission: 04/24/20 Attend Phys: Discharge: Date of : 51 Report #: [id number] 14:04,ALS Assessment,Response: UnchangedSucceeded, 14:06,Stretcher,Response: Unchanged 14:10,3-Lead ECG,Response: UnchangedSucceeded, 14:10,BP: / M,PULSE: 132,RR: 20 R,SPO2: 92 Ox,ETCO2: ,BG: ,PAIN: 0,GCS: 15, 14:10,BP: 111/77 M,PULSE: 122,RR: 18 R,SPO2: Ox,ETCO2: ,BG: ,PAIN: 0,GCS: 15, 14:10,Depart Scene 14:18,BP: 106/54 M,PULSE: 136,RR: 20 R,SPO2: 93 Ox,ETCO2: ,BG: ,PAIN: ,GCS: 15, 14:22,At Destination 14:40,Call Closed Disclaimer v1.1 Copyright 2020 [employer] This EMS Care Summary contains data elements from the applicable legal record (which may be displayed differently). It is designed to provide pertinent information for the following purposes: continuity of care, clinical quality, and state data reporting. The complete legal record is available to ED staff and administrators of the receiving hospital in [facility]'s Patient Tracker. All data is provided "as is."
--- NOTE | ~2020-04-24 | EMS ---
[address] [address] EMS Patient Care Report Name: TERI CRUZ Room #: REG MAREK Quiroz#: [id number] Admission: 04/24/20 Attend Phys: Discharge: Date of : 51 Report #: [id number] THIS REPORT FOR: //name// Report Transmitted: 04/24/2020 16:16 EMS Care Summary [place], [place]/[facility] Incident [id number] @ 04/24/2020 13:55 Incident Location [id number] [place] [address] 321 Patient TERI CRUZ Female, 65 Years 1955 Patient Address [id number] [place] [address] Patient History Congestive Heart Failure (CHF),Chronic Obstructive Pulmonary Disease (COPD), Patient Allergies Sulfa, Patient Medications Unknown, Chief Complaint SHORTNESS OF BREATH Disposition Transported No Lights/[place] Dispatch Reason Breathing Problem Transported To [facility] Narrative SCENE: ON ARRIVAL PT FOUND SITTING UPRIGHT IN WHEELCHAIR IN HALLWAY OF ADDRESS PROVIDED. PT IS AWAKE AND ALERT WITH A GCS OF 15. PT C/O `SHORTNESS OF BREATH AND LEG SWELLING. PT ASSISTED TO EMS STRETCHER. [address] [address] EMS Patient Care Report Name: TERI CRUZ Room #: [facility] Edwige.#: [id number] Admission: 04/24/20 Attend Phys: Discharge: Date of : 51 Report #: [id number] AMBULANCE: PT REFUSES BREATHING TREATMENT DUE TO HEART RATE. PT REPORTS SHE HAS A HISTORY OF TACHYCARDIA AND HAS AN APPOINTMENT COMI G UP WITH HER DR. PT STATES HER RIGHT LEG HAS CELLULITIS AND SHE FINISHED HER ANTIBIOTICS FOR IT ON WEDNESDAY, BUT IT HAS NOT IMPROVED. PT STATES ON WEDNESDAY HER LEFT LEG BEGAN TO SWELL. PT DENIES ALL OTHER COMPLAINTS. VITALS MONITORED. PT REQUESTS TRANSPORT TO [facility].NO CHANGES. Initial Vitals @14:10P: 132,R: 20,Pain: 0/10,GCS: 15,SpO2: 92, @14:18P: 136,R: 20,BP: 106/54,GCS: 15,SpO2: 93,Revised Trauma: 12, @14:10P: 122,R: 18,BP: 111/77,Pain: 0/10,GCS: 15,Revised Trauma: 12, Assessments @14:05MENTAL:No Abnormalities,SKIN:No Abnormalities,HEENT:Head/Face: No Abnormalities,Eyes: No Abnormalities,Neck/Airway: No Abnormalities,LUNG SOUNDS:General: No Abnormalities,Left Upper: No Abnormalities,Right Upper: No Abnormalities,Left Lower: No Abnormalities,Right Lower: No Abnormalities,ABDOMEN:General: No Abnormalities,Left Upper: No Abnormalities,Right Upper: No Abnormalities,Left Lower: No Abnormalities,Right Lower: No Abnormalities,PELVIS//GI:No Abnormalities,EXTREMITIES:Right Leg: Edema,Left Leg: Edema,Left Arm: No Abnormalities,Right Arm: No Abnormalities,PULSE:NEURO:No Abnormalities,@14:24MENTAL:No Abnormalities,SKIN:No Abnormalities,HEENT:Head/Face: No Abnormalities,Eyes: No Abnormalities,Neck/Airway: No Abnormalities,LUNG SOUNDS:General: No Abnormalities,Left Upper: No Abnormalities,Right Upper: No Abnormalities,Left Lower: No Abnormalities,Right Lower: No Abnormalities,ABDOMEN:General: No Abnormalities,Left Upper: No Abnormalities,Right Upper: No Abnormalities,Left Lower: No Abnormalities,Right Lower: No Abnormalities,PELVIS//GI:No Abnormalities,EXTREMITIES:Right Leg: Edema,Left Leg: Edema,Left Arm: No Abnormalities,Right Arm: No Abnormalities,PULSE:NEURO: Impression Edema Procedures @14:04ALS AssessmentResponse: UnchangedSucceeded@14:06StretcherResponse: Unchanged@14:103-Lead ECGResponse: UnchangedSucceeded Timeline 13:52,Call Received 13:52,Dispatch Notified 13:55,Dispatched 13:56,En Route 14:02,On Scene 14:04,[place] [address] EMS Patient Care Report Name: TERI CRUZ Room #: [id number] Admission: 04/24/20 Attend Phys: Discharge: Date of : 51 Report #: [id number] 14:04,ALS Assessment,Response: UnchangedSucceeded, 14:06,Stretcher,Response: Unchanged 14:10,3-Lead ECG,Response: UnchangedSucceeded, 14:10,BP: / M,PULSE: 132,RR: 20 R,SPO2: 92 Ox,ETCO2: ,BG: ,PAIN: 0,GCS: 15, 14:10,BP: 111/77 M,PULSE: 122,RR: 18 R,SPO2: Ox,ETCO2: ,BG: ,PAIN: 0,GCS: 15, 14:10,Depart Scene 14:18,BP: 106/54 M,PULSE: 136,RR: 20 R,SPO2: 93 Ox,ETCO2: ,BG: ,PAIN: ,GCS: 15, 14:22,At Destination 14:40,Call Closed Disclaimer v1.1 Copyright 2020 [employer] This EMS Care Summary contains data elements from the applicable legal record (which may be displayed differently). It is designed to provide pertinent information for the following purposes: continuity of care, clinical quality, and state data reporting. The complete legal record is available to ED staff and administrators of the receiving hospital in [facility]'s Patient Tracker. All data is provided "as is."
[~2020-04-24 14:24] MED LIST changes: +CARDIZEM CD 30300 M1 PO; +HYDROCODONE-CH115 ML PO; +OXYCODONE HCL10 MG PO; +PREDNISONE 10 M10 MG PO
[2020-04-24 14:25] VITALS: BP 141/91
[2020-04-24 15:19] LABS: ABSOLUTE NEUTROPHILS 3.4 thou/uL (1.4-8.2); BASOPHILS 1.2 % (0.0-2.0); EOSINOPHILS 1.8 % (0.0-3.0); HEMATOCRIT 30.1 % (37.0-47.0); HEMOGLOBIN 9.6 gm/dL (12.0-15.0); LYMPHOCYTES 17.1 % (24.0-44.0); MCH 25.5 pg (26.0-34.0); MCHC 31.8 g/dL (28.0-37.0); MCV 80.2 fL (80.0-100.0); MONOCYTES 15.1 % (1.0-8.0); PLATELET COUNT 250 thou/uL (150-400); POLYS 64.8 % (36.0-66.0); RBC 3.76 mil/uL (4.20-5.00); RDW 16.1 % (10.5-14.5); WBC 5.2 thou/uL (4.0-11.0)
[2020-04-24 15:42] LABS: APTT 37.3 Seconds (24.5-32.8); INR 1.1; PROTIME 11.5 Seconds (9.3-11.4)
[2020-04-24 15:45] LABS: ALBUMIN 3.3 g/dL (3.4-5.0); ANION GAP 7 mmol/L (7-16); BUN 14 mg/dL (7-18); CHLORIDE 100 mmol/L (98-107); CO2 30 mmol/L (21-32); CREATININE 1.4 mg/dL (0.6-1.0); DIRECT BILIRUBIN 0.1 mg/dL (<0.1-0.2); GLUCOSE 99 mg/dL (74-106); LIPASE 29 U/L (73-393); POTASSIUM 4.3 mmol/L (3.5-5.1); SGOT 9 U/L (15-37); SGPT 11 U/L (14-59); SODIUM 137 mmol/L (136-145); TOTAL BILIRUBIN 0.5 mg/dL (0.2-1.0); TOTAL PROTEIN 6.5 g/dL (6.4-8.2); TROPONIN-I <0.06 ng/mL (<0.06)
[2020-04-24 15:58] LABS: URINE BILIRUBIN NEGATIVE (Negative); URINE BLOOD TRACE (Negative); URINE CLARITY CLEAR; URINE COLOR YELLOW; URINE GLUCOSE-RANDOM* NEGATIVE (Negative); URINE KETONES NEGATIVE (Negative); URINE LEUKOCYTES-REFLEX NEGATIVE (Negative); URINE PROTEIN (DIPSTICK) NEGATIVE (Negative); URINE SPECIFIC GRAVITY 1.025 (1.005-1.035); URINE UROBILINOGEN 0.2 E.U./dl (0.2-1.0)
[2020-04-24 16:03] LABS: URINE NITRITE-REFLEX POSITIVE (Negative)
[2020-04-24 16:11] LABS: BACTERIA-REFLEX >30 Many /HPF (None Seen); CASTS None Seen /LPF (None Seen); CRYSTALS None Seen /LPF (None Seen); SQUAMOUS 0-3 Few /LPF (0-3); URINE RBC 0-2 Rare /HPF (0-2); URINE WBC-REFLEX 0-5 Rare /HPF (0-5)
--- NOTE | 2020-04-25 04:42 | NUR ---
PT RECIEVED IV DILTIAZEM ABOUT 1 HOUR AGO, HEART RATES 117'S TO 127'S BP LOW AT 95/48. [facility]IT[facility] KARSON WANTED TO START DILTIAZEM DRIP BUT DUE TO BP SHE WANTS TO HOLD OFF FOR NOW UNTIL BP BETTER.
[2020-04-25 06:22] LABS: ABSOLUTE NEUTROPHILS 2.3 thou/uL (1.4-8.2); BASOPHILS 1.2 % (0.0-2.0); EOSINOPHILS 2.1 % (0.0-3.0); HEMATOCRIT 28.9 % (37.0-47.0); HEMOGLOBIN 9.2 gm/dL (12.0-15.0); LYMPHOCYTES 28.6 % (24.0-44.0); MCH 25.8 pg (26.0-34.0); MCV 80.6 fL (80.0-100.0); MONOCYTES 16.1 % (1.0-8.0); PLATELET COUNT 202 thou/uL (150-400); RBC 3.59 mil/uL (4.20-5.00); RDW 16.3 % (10.5-14.5); WBC 4.4 thou/uL (4.0-11.0)
[2020-04-25 06:46] LABS: CALCIUM 8.7 mg/dL (8.5-10.1); CREATININE 1.4 mg/dL (0.6-1.0); MAGNESIUM 2.2 mg/dL (1.8-2.4); POTASSIUM 4.7 mmol/L (3.5-5.1)
--- NOTE | 2020-04-25 07:18 | EKG ---
[address] [address] ELECTROCARDIOGRAM REPORT Name: TERI CRUZ Room #: 170-9 ADM IN M.R.#: [id number] Admission: 04/24/20 Attend Phys: Ede Vu MD Discharge: Date of : 51 Report #: [id number] [facility] ED Test Date: 2020-04-24 Test Time: 14:42:19 Pat Name: TERI CRUZ Department: Room: 170 Gender: F Clinical Nursing Director: LINDSEY : 1955 Requested By: Jhon Baez Order Number: [id number] MD: Osman Rodriguez Measurements Intervals [place] Rate: 132 P: 73 DE: 111 QRS: -34 QRSD: 98 T: 55 QT: 316 QTc: 468 Interpretive Statements Sinus tachycardia Left axis deviation Compared to ECG 03/18/2020 13:09:29 Left-axis deviation now present Sinus rhythm no longer present First degree AV block no longer present Electronically Signed On 04-25-2020 7:17:54 TELEPHONE LINEWORKER by Osman Rodriguez [email or web address] <ELECTRONICALLY SIGNED> By: Osman Rodriguez MD, [facility] [id number] Osman Rodriguez MD, [facility] /EPI
--- NOTE | 2020-04-25 07:47 | NUR ---
cleared from isolation precautions by Seble Morales
[2020-04-25 09:06] VITALS: BP 106/58
[2020-04-25 10:49] VITALS: BP 91/46
[2020-04-25 11:45] VITALS: BP 102/31
[2020-04-25 12:11] LABS: % SATURATION 9 % (20-39); IRON 19 ug/dL (50-170); TIBC 213 ug/dL (250-450)
[2020-04-25 12:30] LABS: FOLIC ACID 13.5 ng/mL (8.6-58.9)
--- NOTE | 2020-04-25 15:53 | HC ---
[facility] [place] [address] CONSULTATION Name: TERI CRUZ Room #: [facility]- ADM IN M.R.#: [id number] Admission: 04/24/20 Attend Phys: Ede Vu MD Discharge: Date of : 51 Report #: [id number] THIS REPORT FOR: cc: Jeromy Singh James V. DO Barry, Joseph W. MD ~ DATE OF SERVICE: 04/25/2020 INFECTIOUS DISEASE CONSULTATION ATTENDING PHYSICIAN: Dr. Vu. REASON FOR EVALUATION: Right lower extremity inflammatory eruption, component of skin and soft tissue infection likely multifactorial, has venous stasis insufficiency with dermatitis as well, also has complicated urinary tract infection and possible pneumonitis as well. HISTORY OF SUBJECTIVE: Chart reviewed, patient examined. This is a 65-year-old with extensive medical history including hypertension, COPD, chronic pain syndrome, apparently has been hospitalized previously with right lower extremity inflammatory eruption diagnosed with cellulitis. She presented with progressive dyspnea. Evaluation was felt to have volume overload. Urinalysis did show pyuria. Urine culture now with growth of Escherichia coli. She noted increasing pain and redness associated with her right lower extremity. She had some low-grade temperature elevations, had some poor p.o. intake as well. She does admit to dyspnea, empirically started on therapy with ceftriaxone. It is notable that she has been on cephalexin prior to that 10-day course. ALLERGIES: LISTED TO SULFA. CURRENT MEDICINES: Include cyanocobalamin, cholecalciferol, folic acid, amiodarone, diltiazem, ceftriaxone, pantoprazole, budesonide, ipratropium and albuterol inhaler, oxycodone, alprazolam, ondansetron as needed. PAST MEDICAL HISTORY: Atrial fibrillation, hypertension, anxiety, chronic pain syndrome, cardiomyopathy with congestive heart failure, COPD, reflux, chronic respiratory failure, requiring 2 liters nasal cannula, chronic knee pain. SOCIAL HISTORY: Smokes cigarettes last 20 years. No ethanol. No illicit drug use. FAMILY HISTORY: Noncontributory. REVIEW OF SYSTEMS: Otherwise, unremarkable 10-point review of systems: Denies any significant GI-related complaints. [facility] [address] [place] [address] CONSULTATION Name: TERI CRUZ Room #: 211-P [facility] IN [facility].#: [id number] Admission: 04/24/20 Attend Phys: Ede Vu MD Discharge: Date of : 51 Report #: [id number] PHYSICAL EXAMINATION: GENERAL: She appears chronically ill and undernourished. She is pleasant. She is lucid, caqm-es-qqdmujuz distress. VITAL SIGNS: Temperature 98.3, pulse 72, respirations 22, blood pressure 102/61. SKIN: Warm, dry, no rashes. HEENT: Normocephalic. Extraocular muscles intact. Nasal cannula in place. NECK: Supple. LUNGS: Scattered coarse breath sounds. HEART: Distant, regular, soft systolic murmur. ABDOMEN: Obese, soft, nontender. EXTREMITIES: Bilateral lower extremities were evaluated. Right lower extremity has an erythrodermic type eruption, it is quite tender. It is moderate inflammatory surface sign. No clear areas of fluctuance, no ulcers, no bullous lesions. GENITOURINARY AND RECTAL: Deferred. LABORATORY DATA: Ferritin 85, folic acid of 13.5. B12 low at 140. Urine culture with growth of greater than 10 to the 5th E. coli. Blood cultures sterile thus far. Electrolytes: Sodium 140, potassium 4.7, chloride 103, bicarbonate 25, anion gap of 12, BUN and creatinine 13 and 1.4. Estimated GFR of 38. CBC: White count of 4.4, H and H 9.2 and 28.9, platelets of 202. Coronavirus testing x 2 including antigens as well as PCR were both negative. Lactic acid 0.5. Urinalysis, greater than 30 bacteria, 0-5 white cells. Chest x-ray, cardiomegaly with pulmonary vascular engorgement, mild bibasilar consolidative infiltrates. BNP elevated at 2127. CBC: White count of 5.2, H and H 9.6 and 30.1, platelets of 250. ASSESSMENT: Right lower extremity inflammatory eruption, likely multifactorial. We will continue empiric therapy. Add vancomycin, suspected resistant Gram-positive given the absence of response to cephalexin. At this point, I do not think there is any drainable focus of infection. She previously did note that helped. We will try to reintroduce this the next 48-72 hours. She was encouraged to elevate her lower extremity. Secondly, has what appears to be a complicating urinary tract infection. Ceftriaxone should give this reasonable gram-negative coverage, early has respiratory tract signs and symptoms. Again, I think large component is likely congestive heart failure/pulmonary edema; however, can exclude pneumonitis. Again, the combination broad-spectrum therapy should give us reasonable coverage for that as well. She remains quite tenuous. <ELECTRONICALLY SIGNED> By: Lauri Sorenson MD 04/25/20 1553 [id number] [id number] Lauri Sorenson MD /nt
[2020-04-25 15:55] VITALS: BP 142/83
[2020-04-25 16:05] VITALS: BP 142/83
--- NOTE | 2020-04-25 17:00 | NUR ---
Pt. became itchy & SOA - HIDE DYER activated - see flowsheet
--- NOTE | 2020-04-25 17:51 | NUR ---
CONSULTED TO PLACE ANOTHER PIV FOR THIS PATIENT. 3RD ONE TODAY, VEINS ARE DEEP AND UNABLE TO PLACE A PIV. A MIDLINE WAS PLACED PER PROTOCOL IN THE RIGHT UPPER ARN. ECURED AND RELEASED FOR USE
--- NOTE | 2020-04-25 19:58 | NUR ---
PT CARE ASSUMED AT 0700. ASSESSMENTS CHARTED. MEDICATIONS CHARTED. SUSI MIDLINE. LT WRIST IV. RT HAND IV. SINUS RHYTHM. PT RECIEVED APPROX 500MG VANCO BEFORE HAVING AN ALLERGIC REACTION, ITCHING, SOA. RAPID RESPONSE CALLED. DR IVORY ATTENDED. VANCO D/C'D. LFA D/C'D INFILTRATED. IV THERAPY PLACED MIDLINE.
[2020-04-25 20:16] VITALS: BP 116/73
[2020-04-26] VITALS (9 sets, daily range): BP systolic 110–133; BP diastolic 62–90
--- NOTE | 2020-04-26 06:42 | NUR ---
PATIENTS CARES WERE ASSUMED AT SHIFT CHANGE. PATIENT WAS ASSESSED AND MEDS WERE PASSED. PATIENT DOES HAVE A CONGESTED COUGH THAT SHE BELIEVES IT IS DUE TO THE ALLERGIC REACTION. PATIENT DID CONFESS TO BEING A LONG TIME SMOKER AND WANTED TO TRY CHANTIX. THIS LADY COMES TO US WITH ISSUES OF CELLULITUS BILAT BOTH LEGS. LAXIS WAS GIVEN. SHE DID PRESENT WITH A RAPID HEART RATE AND SHE IS NOW ON AN AMIO DRIP. HER HEART RATE STAYED IN THE 130'S LAST NIGHT FOR A COUPLE HOURS AND CALL FOR ORDERS. ELIAN GRAY GAVE ME A ONE YOUNG DIG ORDER. SHE RECOVERED NICLY AND IS NOW PRESENTS WITH A HEART RAT OF 106. HER LABS ARE ELEVATED AND ONCE THAT IS ADJUSTEDPROGRESS TO DISCHARGE WILL BE CLOSER.
[2020-04-26 12:12] LABS: ABSOLUTE NEUTROPHILS 6.8 thou/uL (1.4-8.2); BASOPHILS 0.1 % (0.0-2.0); HEMOGLOBIN 9.3 gm/dL (12.0-15.0); LYMPHOCYTES 5.6 % (24.0-44.0); MCH 25.5 pg (26.0-34.0); MCHC 32.2 g/dL (28.0-37.0); MCV 79.2 fL (80.0-100.0); MONOCYTES 5.2 % (1.0-8.0); PLATELET COUNT 222 thou/uL (150-400); POLYS 89.1 % (36.0-66.0); RBC 3.66 mil/uL (4.20-5.00); RDW 15.7 % (10.5-14.5); WBC 7.6 thou/uL (4.0-11.0)
[2020-04-26 12:19] LABS: CALCIUM 9.3 mg/dL (8.5-10.1); CREATININE 1.6 mg/dL (0.6-1.0); POTASSIUM 4.2 mmol/L (3.5-5.1)
--- NOTE | 2020-04-26 17:42 | NUR ---
Chart reviewed. No weekend dc anticipated. Pt having colonoscopy on Wednesday. Was on service with [facility] prior to admission. Will need to updated them on Wednesday. Pt recently here and dc'd home on 03-23-20. She has home o2 per [facility] and lives in a low income housing apt. She has a cane and a rwalker. Will follow along and resume her hh at [place]. Therapy evals requested.
--- NOTE | 2020-04-26 20:22 | NUR ---
PT CARE ASSUMED AT 0700. ASSESSMENTS CHARTED. MEDICATIONS CHARTED. SUSI MIDLINE. RFA IV, D/C'D INFILTRATED. AMIODARONE DRIP. BSC. PT REQUESTS COUGH SYRUP, DR HAN INFORMED.
[2020-04-27 00:30] VITALS: BP 103/53
[2020-04-27 04:45] VITALS: BP 113/67
--- NOTE | 2020-04-27 05:32 | NUR ---
CARE ASSUMED AT 1900. PT ALERT AND ORIENTED. ON AMIODARONE DRIP HR STABLE. DENIES CHEST PAIN BUT REPORTS SOB. PT HAD A SCHEDULED DOSE OF LASIX 2100 BUT REFUSED, BECAUSE IT WAS LATE TO TAKE LASIX. " I DON'T WANT TO STAY UP ALL NIGHT" SHE STATES. PT ALSO HAS A SEVERE COUGH AND SORE THROAT. SHE STATES THAT NOTHING WORKS FOR APART FROM THE TESSIONEX. NPO FOIL CUTTER NOTIFIED, XANAX CHANGED TO PRN, AND FEW DOSES OF TESSIONEX ORDERED. LASIX REGIMEN ALSO CHANGED PER PATIENT REQUEST,HENCE LOW URINE OUTPUT OVERNIGHT. WILL CONTINUE TO MONITOR AND FOLLOW POC.
[2020-04-27 05:34] LABS: HEMATOCRIT 28.2 % (37.0-47.0); HEMOGLOBIN 8.9 gm/dL (12.0-15.0); MCHC 31.5 g/dL (28.0-37.0); MCV 79.3 fL (80.0-100.0); RBC 3.56 mil/uL (4.20-5.00); RDW 15.9 % (10.5-14.5); WBC 10.5 thou/uL (4.0-11.0)
[2020-04-27 05:41] LABS: CALCIUM 8.7 mg/dL (8.5-10.1); CREATININE 2.1 mg/dL (0.6-1.0); POTASSIUM 4.5 mmol/L (3.5-5.1)
[2020-04-27 07:32] VITALS: BP 93/56
[2020-04-27 11:20] VITALS: BP 100/60
[2020-04-27 20:15] VITALS: BP 106/54
--- NOTE | 2020-04-27 20:37 | NUR ---
RECEIVED PT'S CARE AROUND 0735; PT. ON BED; ALERT; ON AMMIO GTT; DURING AM ASSESSMENT PT. AOX4; SBP ON THE 90s; CARVEDILOL AND METOPROLOL SCHEDULED; PHYSICIAN NOTIFIED; ORDERS RECEIVED; HOLD METOPROLOL; AM MEDICATIONS GIVEN; AMMIO GTT D/C PER EMAR; MONITORING; EDUCATED ABOUT FALL PRECAUTIONS; REFUSED YELLOW SUCKS; AFIB ON THE MONITOR; HR BELOW 100; PRN PAIN MEDICATION GIVEN; PRN ANTI-ANXIETY MEDICATION GIVEN; ASSESSMENT CHARGED; FOLLOWING POC; PASSED ON REPORT;
[2020-04-28 03:19] LABS: HEMATOCRIT 27.1 % (37.0-47.0); HEMOGLOBIN 8.8 gm/dL (12.0-15.0); MCH 25.8 pg (26.0-34.0); MCHC 32.3 g/dL (28.0-37.0); MCV 79.8 fL (80.0-100.0); RBC 3.4 mil/uL (4.20-5.00); WBC 8.5 thou/uL (4.0-11.0)
--- NOTE | 2020-04-28 03:32 | NUR ---
ASSUMED CARE FROM OUTGOING RN @MIDNIGHT. PT RESTING WELL IN BED. PO PAIN MEDS GIVEN. IV INTACT AND SL. NIGHT TIME SNACKS PROVIDED. PT UPX1 TO THE BSC. ON 3L OF O2. FALL PREC IN PLACE AND CALL LIGHT AT REACH WILL CONT WITH POC TILL EOS.
[2020-04-28 03:43] LABS: CREATININE 1.9 mg/dL (0.6-1.0); POTASSIUM 4.2 mmol/L (3.5-5.1)
[2020-04-28 04:45] VITALS: BP 105/57
[2020-04-28 08:15] VITALS: BP 123/65
[2020-04-28 11:25] VITALS: BP 122/78
[2020-04-28 15:29] VITALS: BP 94/69
[2020-04-28 20:24] VITALS: BP 96/62
--- NOTE | 2020-04-28 21:10 | NUR ---
RECEIVED PT'S CARE AROUND 0725; PT. ON BED; RECEIVING BREATHING TREATMENT; AFIB ON THE MONITOR; DURING AM ASSESSMENT AOX4; AM MEDICATION GIVEN; C/O PAIN; PT. DROWSY; WHEN RETURNING TO ROOM RESTING WITH EYES CLOSED; PRN PAIN MEDICATION NOT GIVEN; REFUSED MIRALAX; EDUCATED ABOUT FLUID INTAKE; NEEDS TO BE REINFORCED; MIRALAX COLONOSCOPY PREPARATION STARTED; EDUCATED ABOUT DRINKING UNTIL MIDNIGHT; EDUCATED ABOUT NEW DIET; ST. UNDERSTANDING; NO BM THROUGH THE DAY; AFIB ON THE MONITOR; ASSESSMENT CHARGED; FOLLOWING POC; PASSED ON REPORT;
[2020-04-29] VITALS (8 sets, daily range): BP systolic 87–120; BP diastolic 46–71
[2020-04-29 07:00] LABS: HEMATOCRIT 30.7 % (37.0-47.0); HEMOGLOBIN 9.7 gm/dL (12.0-15.0); MCH 25.5 pg (26.0-34.0); MCHC 31.7 g/dL (28.0-37.0); MCV 80.2 fL (80.0-100.0); RBC 3.82 mil/uL (4.20-5.00); RDW 16.4 % (10.5-14.5); WBC 8.2 thou/uL (4.0-11.0)
[2020-04-29 07:19] LABS: CALCIUM 8.9 mg/dL (8.5-10.1); CREATININE 1.5 mg/dL (0.6-1.0); POTASSIUM 4.5 mmol/L (3.5-5.1)
--- NOTE | 2020-04-29 20:29 | NUR ---
PT CARE ASSUMED AT 0700. ASSESSMENTS CHARTED. MEDICATIONS CHARTED. SUSI MIDLINE. BSC. EGD/COLOSTOMY ON 04/29/20 NOT PERFORMED. PT NOT CLEAN. UNDERGOING PREP AGAIN. AFIB.
[2020-04-30 04:45] VITALS: BP 122/68
[2020-04-30 07:20] VITALS: BP 116/67
[2020-04-30 07:45] VITALS: BP 116/67
--- NOTE | 2020-04-30 09:42 | NUR ---
Assess due to high BMI and length of stay. Admit with UTI, cellulitis lower extremity, CHF, and GI bleed. BMI 41.5=extreme class III obesity. Has been constipated, on miralax. Plan for EGD/colonoscopy today. Intake has been 25-50% past couple days. B12 and Vitamin D deficient-on supplementation now. Physician has indicated protein calorie malnutrition: RD will defer. Encourage adequate fluid intake but still cautious for CHF, miralax and resume heart healthy diet with high fiber choices. Low nutrition risk
[2020-04-30] MEDS ORDERED: PACERONE 200 M200 M1 PO (11:04)
[2020-04-30] MEDS ORDERED: METOPROLOL TART25 MG PO (11:04)
[2020-04-30 15:45] VITALS: BP 135/68
[2020-04-30 17:00] VITALS: BP 135/68
--- NOTE | 2020-04-30 19:22 | NUR ---
PT CARE ASSUMED AT 0700. ASSESSMENTS CHARTED. MEDICATIONS CHARTED. SUSI MIDLINE. BSC. AFIB. PT TO EGD/COLONOSCOPY AT 1130 TO 1330. PT DETERMINED TO HAVE GASTRITIS, THREE POLYPS REMOVED. BLE CELLULITIS, TUBI WRAP PER DR. FOREMAN.
[2020-04-30 20:45] VITALS: BP 125/68
--- NOTE | 2020-04-30 23:18 | NUR ---
PATIENTS CARE WERE ASSUMED AT SHIFT CHANGE, PATIENT ASSESSED AND MEDS WERE PASSED. PATIENT CONTINUES TO APPER MORE PAINFUL AT NIGHT. HER BREATHING HAS IMPROVED. PATIENT STATED SHE SMOKES TWO PACKS OF CIGARETTES DAILY. SHE HAS DONE VERY WELL FOR MY LAST TWO SHIFTS. HOURLY ROUNDS DONE. THE BED IS IN A LOW AND LOCKED POSITION.
[2020-05-01 04:45] VITALS: BP 123/59
--- NOTE | 2020-05-01 05:17 | NUR ---
ASSESSMENT: ASSUMED CARE OF THIS PT AT APPROXIMATELY 2330. REPORT FROM MANUEL LUNDBERG. PT ABLE TO GET TO BSC WITH SBA. C/O THROAT, RIGHT SHOULDER AND LE PAIN. PRN PAIN MEDS EFFECTIVE. C/O FEELING NASAL BLOCKAGE AND COUGHING. PRN COUGH MEDICINE GIVEN WITH PARTIAL RELIEF PER PT. VSS, AFEBRILE. SR PER MONITOR.
[2020-05-01 07:19] VITALS: BP 124/63
--- NOTE | 2020-05-01 10:14 | NUR ---
1014 - PER RN STUDENT, AFTER ASSISTNACE TO THE BEDSIDE COMMODE, PT HAD FOUND AN ALPRAZOLAM IN THE BED, RN STUDENT TOLD PT TO DISCARD THE MEDICATION, BUT BEFORE STUDENT CAN INTEREVEN PT CONSUMED THE PILL. THIS RN HAD NOT PULLED AN ALPRAZOLAM FOR THE PT THIS SHIFT. RN WILL RETREIVE VITAL SIGN.
[2020-05-01 11:18] VITALS: BP 113/70
[2020-05-01] MEDS ORDERED: B-12500 MCG PO (12:22)
[2020-05-01] MEDS ORDERED: FOLIC ACID1 MG PO (12:22)
[2020-05-01] MEDS ORDERED: VITAMIN D325 MC1 PO (12:22)
[2020-05-01] MEDS ORDERED: CEFDINIR300 MG PO (12:25)
[2020-05-01 15:00] VITALS: BP 113/70
[2020-05-01 16:11] VITALS: BP 113/70
--- NOTE | 2020-05-01 16:54 | NUR ---
PT DISCHARGING TODAY TO HOME WITH PT ON SERVICE WITH [facility] PRIOR TO ADMISSION FAXED CLINICAL UPDATE AND DC ORDERS AND SPOKE WITH INTAKE THEY WILL RESUME HH.
--- NOTE | 2020-05-01 17:18 | NUR ---
Patient to ma home today. She was on service with [facility]. Dr Rodriguez will write orders for home health care. Patient at first needed a ride home then she found someone to assist her. She reports she wants a portable concentrator. She reports her concentrator at home is not working well. Sp with Timmy at [facility] who reports they will have a taxi cab driver check. Will discuss testing to be done for portable concentrator. Timmy returned call and reports its [facility]. He sent them a message. I put phone number for [facility] in paperwork. Encouraged her to call [facility] if she does not hear from them.
--- NOTE | 2020-05-02 14:03 | NUR ---
PT DISCHARGED YESTERDAY TO HOME WITH [facility] FAXED DC ORDERS BUT DC SUMMARY NEEDED TO BE UPDATED FAXED DC SUMMARY TODAY SPOKE WITH HODAN IN INTAKE THEY RECEIVED DC SUMMARY.
--- NOTE | 2020-05-02 18:06 | PATH ---
[facility] [address] [place] [address] PATHOLOGY RPT PROCEDURE Name: LORIN CRUZ Room #: 211-P DIS IN M.R.#: [id number] Admission: 04/24/20 Date of : 51 Discharge: 05/01/20 Report #: [id number] Path Case #: [id number] [facility] Accession Number: [id number] . 01 Material submitted: . PART A: gastrointestinal site - RANDOM GASTRIC BIOPSY PART B: colon - TRANSVERSE COLON POLYP. Modifiers: transverse PART C: sigmoid colon - SIGMOID COLON POLYP X2 . 01 Clinician provided ICD-10: K92.1 J18.9 . 01 Clinical history: . MELENA PNEUMONIA,UNSPECIFIED ORGANISM ANEMIA, RECTAL BLEEDING,GERD GASTRITIS, COLON POLYPS . 02 Diagnosis: A. Gastric mucosa, random gastric R/O H. pylori, endoscopic biopsy: - Moderate reactive gastropathy with focal active inflammation. - Negative for intestinal metaplasia or atrophy. - Negative for Helicobacter pylori )properly controlled immunohistochemical stain performed. . B. Polyp, transverse colon polyp, endoscopic biopsy: - Tubular adenoma. - Negative for high-grade dysplasia. . C. Polyp x2, sigmoid colon polyp, endoscopic biopsy: - Tubular adenoma x1; negative for high-grade dysplasia. - Hyperplastic polyp x1; negative for dysplasia. (IUV:kelly; 05/02/2020) S 05/02/2020 1519 Local . 02 Electronically signed: . Maria Elena Ramsay MD, Pathologist NPI- [id number] . 01 Gross description: . A. The specimen is received in formalin, labeled "Lorin Cruz, biopsy random gastric, R/O H. pylori". Received are four segments of pale malcolm soft tissue ranging in size from 0.2 to 0.4 cm in maximum dimensions. The specimen is submitted entirely in cassette A1. . B. The specimen is received in formalin, labeled "Lorin Cruz, [place] [address] PATHOLOGY RPT PROCEDURE Name: LORIN CRUZ Room #: 211-P [facility]#: [id number] Admission: 04/24/20 Date of : 51 Discharge: 05/01/20 Report #: [id number] Path Case #: [id number] transverse colon polyp". Received is a segment of pale malcolm soft tissue measuring 1.3 cm in maximum dimensions. The specimen is submitted entirely in cassette B1. . C. The specimen is received in formalin, labeled "Lorin Cruz, biopsy sigmoid colon polyp x2". Received are three segments of pale malcolm soft tissue ranging in size from 0.6 to 1.0 cm in maximum dimensions. The specimen is submitted entirely in cassette C1. (CAA; 05/01/2020) QAC/QAC 05/01/2020 1716 Local . 02 Pathologist provided ICD-10: K31.9, K29.50, D12.3, D12.5, K63.5 . 02 CPT . 801001, 329884, [id number], [id number] Specimen Comment: A courtesy copy of this report has been sent to [phone], [phone] Specimen Comment: [id number] Specimen Comment: Report sent to / DR HAN Performed at: 01 [facility] [address] [place] [address] [address], [place] [id number] MD Jarrell Ta MD Phone: [phone] Performed at: [address] [id number] MD Maria Elena Ramsay MD Phone: [phone]
== END 2020-05-01 18:14 | disposition home health service (06) | DRG 242 ==
LOC: ER 14:24 → 2N 17:30 → EROBS 17:30 → 2N 04-25 11:50
PROVIDERS: Nurse Practitioner; ADMIT Hospitalist; ATTEND Hospitalist
PROC: 0JH604Z Insertion of Pacemaker, Single Chamber into Chest Subcutaneous Tissue and Fascia, Open Approach (ICD-10-PCS; principal; 2020-04-24)
PROC: 02HK3JZ Insertion of Pacemaker Lead into Right Ventricle, Percutaneous Approach (ICD-10-PCS; principal; 2020-04-24)
PROC: B51N1ZZ Fluoroscopy of Left Upper Extremity Veins using Low Osmolar Contrast (ICD-10-PCS; principal; 2020-04-24)
PROC: 05HB33Z Insertion of Infusion Device into Right Basilic Vein, Percutaneous Approach (ICD-10-PCS; 2020-04-25)
PROC: 0DB78ZX Excision of Stomach, Pylorus, Via Natural or Artificial Opening Endoscopic, Diagnostic (ICD-10-PCS; 2020-04-30)
PROC: 0DBN8ZZ Excision of Sigmoid Colon, Via Natural or Artificial Opening Endoscopic (ICD-10-PCS; 2020-04-30)
PROC: 0DBL8ZZ Excision of Transverse Colon, Via Natural or Artificial Opening Endoscopic (ICD-10-PCS; 2020-04-30)
DX: I48.0 Paroxysmal atrial fibrillation (principal); J96.21 Acute and chronic respiratory failure with hypoxia; J18.9 Pneumonia, unspecified organism; I13.0 Hypertensive heart and chronic kidney disease with heart failure and stage 1 through stage 4 chronic kidney disease, or unspecified chronic kidney disease; L03.115 Cellulitis of right lower limb; K92.1 Melena; N39.0 Urinary tract infection, site not specified; E46 Unspecified protein-calorie malnutrition; Z68.41 Body mass index [BMI] 40.0-44.9, adult; J44.0 Chronic obstructive pulmonary disease with (acute) lower respiratory infection; I50.32 Chronic diastolic (congestive) heart failure; D50.9 Iron deficiency anemia, unspecified; K63.5 Polyp of colon; I48.21 Permanent atrial fibrillation; F41.9 Anxiety disorder, unspecified; G89.29 Other chronic pain; K21.9 Gastro-esophageal reflux disease without esophagitis; M25.569 Pain in unspecified knee; Z96.652 Presence of left artificial knee joint; E87.70 Fluid overload, unspecified; N18.9 Chronic kidney disease, unspecified; Z20.822 Contact with and (suspected) exposure to COVID-19; E66.9 Obesity, unspecified; E78.5 Hyperlipidemia, unspecified; K59.09 Other constipation; I08.1 Rheumatic disorders of both mitral and tricuspid valves; F17.210 Nicotine dependence, cigarettes, uncomplicated; I87.8 Other specified disorders of veins; B96.20 Unspecified Escherichia coli [E. coli] as the cause of diseases classified elsewhere; Z88.1 Allergy status to other antibiotic agents; Z90.710 Acquired absence of both cervix and uterus; Z88.2 Allergy status to sulfonamides; Z79.891 Long term (current) use of opiate analgesic; Z82.49 Family history of ischemic heart disease and other diseases of the circulatory system; Z83.3 Family history of diabetes mellitus; Z90.49 Acquired absence of other specified parts of digestive tract
CPT/HCPCS: 10081; 27000; 62110; 62900; 70005

== ENCOUNTER 2020-05-18 11:50 | Inpatient (IN) | payer OTHER ==
[~2020-05-18] VITALS: Ht 157.5 cm; Wt 89.8 kg
[~2020-05-18 11:50] MED LIST changes: +B-12500 MCG PO; +CEFDINIR300 MG PO; +FOLIC ACID1 MG PO; +METOPROLOL TART25 MG PO; +VITAMIN D325 MC1 PO
--- NOTE | 2020-05-18 13:07 | NUR ---
UNABLE TO OBTAIN IV ACCESS. IV TEAM NOTIFIED.
[2020-05-18 13:56] LABS: ABSOLUTE NEUTROPHILS 3.7 thou/uL (1.4-8.2); EOSINOPHILS 3.1 % (0.0-3.0); HEMATOCRIT 30.1 % (37.0-47.0); HEMOGLOBIN 9.5 gm/dL (12.0-15.0); LYMPHOCYTES 15.7 % (24.0-44.0); MCH 25.1 pg (26.0-34.0); MCHC 31.4 g/dL (28.0-37.0); MCV 79.8 fL (80.0-100.0); MONOCYTES 10.9 % (1.0-8.0); PLATELET COUNT 232 thou/uL (150-400); POLYS 69.3 % (36.0-66.0); RBC 3.77 mil/uL (4.20-5.00); RDW 17.1 % (10.5-14.5); WBC 5.4 thou/uL (4.0-11.0)
--- NOTE | 2020-05-18 14:00 | NUR ---
CONSULTED TO PLACE A PIV/MIDLINE. THIS PATIENT HAS HAD MIDLINES IN THE PAST. THE RIGHT UPPER ARM WAS ASSESSED AND A MIDLINE WAS PLACED PER POLICY. NERVE ENDINGS WERE NOTED 1CM FROM THE STICK SITE AND VISUALIZED WITH INSERTION. THE PATIENT COMPLAINED OF NERVE LIKE PAIN WITH THE DIALATION DUE TO THE CLOSE RELATION TO THE NERVE. THE PAIN DECREASED WHEN THE DIALATER WAS REMOVED. LINE WAS TRIMMED TO 20CM AND ADVANCED WITHOUT DIFFICULTY. LINE SECURED AND RELEASED FOR USE
[2020-05-18 14:07] LABS: ANION GAP 9 mmol/L (7-16); BUN 17 mg/dL (7-18); CALCIUM 8.5 mg/dL (8.5-10.1); CHLORIDE 102 mmol/L (98-107); CO2 27 mmol/L (21-32); CREATININE 1.6 mg/dL (0.6-1.0); GLUCOSE 102 mg/dL (74-106); POTASSIUM 4.5 mmol/L (3.5-5.1); SODIUM 138 mmol/L (136-145)
[2020-05-18 14:18] LABS: ALBUMIN 3.5 g/dL (3.4-5.0); DIRECT BILIRUBIN 0.2 mg/dL (<0.1-0.2); MAGNESIUM 2.1 mg/dL (1.8-2.4); SGOT 11 U/L (15-37); SGPT 15 U/L (14-59); TOTAL BILIRUBIN 0.6 mg/dL (0.2-1.0); TOTAL PROTEIN 6.3 g/dL (6.4-8.2); TROPONIN-I <0.06 ng/mL (<0.06)
[2020-05-18] MEDS ORDERED: ONDANSETRON HCL4 M3 PO (15:15)
[2020-05-18 16:02] VITALS: BP 98/50
[2020-05-18 17:01] LABS: URINE BILIRUBIN NEGATIVE (Negative); URINE BLOOD NEGATIVE (Negative); URINE CLARITY CLEAR; URINE COLOR YELLOW; URINE GLUCOSE-RANDOM* NEGATIVE (Negative); URINE KETONES NEGATIVE (Negative); URINE LEUKOCYTES-REFLEX NEGATIVE (Negative); URINE NITRITE-REFLEX NEGATIVE (Negative); URINE PROTEIN (DIPSTICK) NEGATIVE (Negative); URINE UROBILINOGEN 0.2 E.U./dl (0.2-1.0)
[2020-05-18 18:23] VITALS: BP 106/55
[2020-05-18 19:08] VITALS: BP 120/61
[2020-05-19 03:14] VITALS: BP 118/72
[2020-05-19 07:38] VITALS: BP 141/95
--- NOTE | 2020-05-19 07:53 | NUR ---
ADMISSION, CARE PLAN, MED REC, AND INTERVENTIONS COMPLETED. PT HAS MANY RECENT VISITS TO [facility]. PT UP WITH X1 ASSIST AND WITH THE USE OF A CANE. PT IS A/0 X4. VSS OVERNIGHT, AND PROGRESSING WITH POC WITH IVPB ANTIBIOTICS AND STEROIDS.
[2020-05-19 10:04] LABS: CALCIUM 9.2 mg/dL (8.5-10.1); CREATININE 1.5 mg/dL (0.6-1.0); POTASSIUM 5.5 mmol/L (3.5-5.1)
[2020-05-19 11:11] LABS: HEMATOCRIT 31.6 % (37.0-47.0); MCH 25.6 pg (26.0-34.0); MCHC 31.5 g/dL (28.0-37.0); MCV 81.2 fL (80.0-100.0); RBC 3.89 mil/uL (4.20-5.00); WBC 4.3 thou/uL (4.0-11.0)
[2020-05-19 16:00] VITALS: BP 133/75
--- NOTE | 2020-05-19 16:42 | NUR ---
RN ASSUMED PT'S CARE AT 0700AM, PT IS A&OX3, PT IS ON O2 2L/MIN/NC, PT'S VS AND O2SAT ARE STABLE, PT DENIES SOB AT THIS TIME. PT HAS SECOND COVID TEST TODAY,
[2020-05-20 05:31] VITALS: BP 128/83
[2020-05-20 06:02] LABS: HEMOGLOBIN 9.9 gm/dL (12.0-15.0); MCH 25.1 pg (26.0-34.0); MCHC 31.8 g/dL (28.0-37.0); MCV 78.8 fL (80.0-100.0); RBC 3.94 mil/uL (4.20-5.00); RDW 17.2 % (10.5-14.5); WBC 10.8 thou/uL (4.0-11.0)
[2020-05-20 06:09] LABS: CALCIUM 9.3 mg/dL (8.5-10.1); CREATININE 1.6 mg/dL (0.6-1.0); POTASSIUM 4.5 mmol/L (3.5-5.1)
--- NOTE | 2020-05-20 06:54 | NUR ---
PT TRANSFERRING TO BEDSIDE COMMODE WITH STANDBY ASSIST AND IS TOLERATING FAIR. OXY IR PROVIDING PAIN RELIEF. RESTING COMFORTABLY. NO NEEDS VOICED. CALL LIGHT WITHIN REACH. FREQUENT OBSERVATION.
[2020-05-20 07:00] VITALS: BP 134/77
--- NOTE | 2020-05-20 07:25 | EKG ---
[address] [facility] [address] ELECTROCARDIOGRAM REPORT Name: TERI CRUZ Room #: 360-P ADM IN M.R.#: [id number] Admission: 05/18/20 Attend Phys: China Brasher MD Discharge: Date of : 51 Report #: [id number] [facility] ED Test Date: 2020-05-18 Test Time: 12:28:16 Pat Name: TERI CRUZ Department: Room: 360 Gender: F Costume Shop Manager: MEGHAN MICHAUD : 1955 Requested By: Juan Beard Order Number: [id number] MD: Floyd Santos Measurements Intervals [place] Rate: 86 P: NC: QRS: -16 QRSD: 131 T: 91 QT: 515 QTc: 616 Interpretive Statements Atrial flutter Right bundle branch block Nonspecific T abnormalities, lateral leads Compared to ECG 04/24/2020 14:42:19 Atrial flutter rates have slowed Electronically Signed On 05-20-2020 7:25:09 VOCATIONAL CASE MANAGER by Floyd Santos [email or web address] <ELECTRONICALLY SIGNED> By: Floyd Santos MD, [facility] 05/20/20 0725 1228 1228 Floyd Santos MD, [facility] /EPI
--- NOTE | 2020-05-20 10:54 | NUR ---
PT BECAME IRATE WHEN SHE REALIZED HER PAIN MEDICATION DOSE IS ONLY 5MG OF OXY. PT STATES "I AM GONNA CHECK MYSELF OUT BECAUSE YOU GUYS ARE NOT DOING ANYTHING FOR ME" PT TOLD THIS RN TO "HOLD ON A MINUTE" WHEN RN ATTEMPTED TO DISCUSS CARE PLAN FOR THE DAY. PT TOOK PHONE CALL FROM HER FRIEND REQUESTING A COAT SO SHE COULD LEAVE WHEN SHE WANTS TO.
[2020-05-20 15:39] VITALS: BP 172/110
[2020-05-20 17:05] VITALS: BP 166/114
[2020-05-20 20:35] VITALS: BP 114/81
[2020-05-21 03:58] VITALS: BP 112/73
[2020-05-21 07:44] VITALS: BP 127/100
--- NOTE | 2020-05-21 08:03 | NUR ---
ASSUMED CARE OF PT AT 1900HRS. PT AOX4 AND LETS NEEDS BE KNOWN. PT IS UP AD HAO. PT REPORTED SOME PAIN AND PRN PAIN MEDS GIVEN. PT IS UNSATISFIED WITH PAIN MANAGEMENT. PT REPORTS CONSTIPATION > 3 WEEKS. PT IS ABLE TO TOLERATE PO AND DENIED NAUSEA THIS SHIFT. PT WAS ABLE TO GET COMFORTABLE AND SLEEP PART OF THE SHIFT. VSS AND NO S/S OF ACUTE DISTRESS. REPORT GIVEN TO ONCOMING RN.
[2020-05-21 09:04] LABS: BE(vivo) 1.4 mmol/L (-2 to +3); HCO3 25.4 mmol/L (22.0-26.0); PCO2 37.7 mmHg (35.0-45.0); PO2 113.5 mmHg (80.0-100.0); pH 7.446 (7.360-7.450); sO2 98.3 % (92.0-98.0)
[2020-05-21 09:17] LABS: ABSOLUTE NEUTROPHILS 6.3 thou/uL (1.4-8.2); BASOPHILS 0.1 % (0.0-2.0); HEMATOCRIT 30.6 % (37.0-47.0); HEMOGLOBIN 9.7 gm/dL (12.0-15.0); LYMPHOCYTES 4.3 % (24.0-44.0); MCH 25.1 pg (26.0-34.0); MCHC 31.6 g/dL (28.0-37.0); MCV 79.3 fL (80.0-100.0); MONOCYTES 2.6 % (1.0-8.0); PLATELET COUNT 233 thou/uL (150-400); RBC 3.86 mil/uL (4.20-5.00); RDW 17.3 % (10.5-14.5); WBC 6.8 thou/uL (4.0-11.0)
[2020-05-21 09:42] LABS: CALCIUM 9.5 mg/dL (8.5-10.1); CREATININE 1.7 mg/dL (0.6-1.0); MAGNESIUM 2.2 mg/dL (1.8-2.4); POTASSIUM 5.1 mmol/L (3.5-5.1)
--- NOTE | 2020-05-21 12:32 | NUR ---
INITIAL ASSESSMENT: Received consult for discharge planning. MYRNA reviewed chart and spoke with nursing and attending physician. Pt was admitted from home due to cellulitis. Pt placed in Enhanced Isolation to r/o COVID. Pt had negative COVID test. Enhanced Isolation precautions discontinued. MYRNA spoke with pt via phone. Introduced role of SW. Pt is alert/orientated. Pt lives at home alone. Prior to admission, pt was independent with ADLs. Pt does have a cane, walker and w/c. Pt has home O2 in place through [facility]. Pt states that she is normally on 2L and has asked [facility] about getting a portable O2 concentrator. Pt states that she does not qualify for a portable concetrator and her friend is working on buying her one. MYRNA placed call to [facility] and spoke with Anna. Pt's insurance does not cover portable concentrator at this time until April 2022, when pt has been with [facility] for 5 years. MYRNA faxed clinical info to [facility] and spoke with Cindy in intake to notify of pt's hospitalization. [facility] is able to accept pt back on service when discharged. Pt has in-home care through her [place]: 6 hrs/day x 5 days/week. Pt's PCP is Dr. Jeromy Singh. Pt's plan is to discharge home with when medically stable. MYRNA is following to assist as needed with discharge planning.
[2020-05-21 15:04] VITALS: BP 125/64
[2020-05-21 19:16] VITALS: BP 124/80
--- NOTE | 2020-05-21 19:18 | NUR ---
THIS RN NOTICED UNREPORTED MEDICATIONS IN PT PURSE WHILE TRANSFERRING TO BED. PT HAD MULTIPLE PILLS IN A BOTTLE LABELED "ALPRAZOLAM" AND ONDANSETRON ODT. PILLS PLACED IN PT MEDICINE INVENTORY BAG AND CONTACTED PHARMACY.
--- NOTE | 2020-05-21 22:39 | NUR ---
PT WATCHING TV, PT VERY TALKATIVE. PT NOT SOA. PT WANTING TO TALK WITH PT ADVOCATE TOMORROW VERBALIZING FRUSTRATION WITH PAIN MEDICATION ORDERS AND WANTING TO GO HOME. O2 PER NC. PT DID PROVIDE DAY NURSE WITH HOME MEDICATIONS TO BE LOCKED IN PHARMACY. BLE EDEMA REMAINS. PT PROVIDED HS SNACK AND PT ALSO REQUESTED PRN FOR NAUSEA AND PROVIDED.
--- NOTE | 2020-05-22 03:13 | NUR ---
PT TEARFUL IN ROOM STATED HER FRIEND JUST CALLED AND SAID HER SISTER OF A HEART ATTACK. SHE STATED SHE NEEDS TO LEAVE, GO AMA, BUT THAT SHE DOES NOT HAVE ANY SHOES, COAT OR OXYGEN AT HOME SO SHE CAN'T. PT ASKED NURSE TO CALL PROVIDER TO ASK FOR PRN FOR ANXIETY.
[2020-05-22 03:43] VITALS: BP 133/94
[2020-05-22 07:38] VITALS: BP 155/90
[2020-05-22 13:09] VITALS: BP 155/90
--- NOTE | 2020-05-22 13:11 | NUR ---
MYRNA reviewed chart and spoke with nursing and attending physician. Pt is on 4L of O2 and IV abx. Pt is progressing towards goals for discharge. Plan is for pt to discharge home and resume HH services through [facility]. Pt has home O2 in place through [facility]. MYRNA placed call to pt's room. No answer. [facility]. Should pt need portable O2 tank for discharge, [facility] will need to be contacted. Finalized discharge orders will need to be faxed to when available. MYRNA is following to assist as needed with discharge planning. [facility] EMERGENCY DEPARTMENT--
--- NOTE | 2020-05-22 15:43 | NUR ---
ASSUMED PATIENT CARE AT 0700. A/0 X3. FORGETFUL. COMPLAINED PHYSICIAN DIDN'T GIVE HER HOME XANX AND OXYCODNE DOSE AND MAKE RN CALL PATIENT ADVOCATE KG. KG CAME TALK TO PATIENT AND ASKING RN CONTACT PHYSICIAN. WAITTING PHYSICAIAN RESPONSE. PATIENT SOB WITH EXERTION. 99% O2 SAT ON 3L/NC. SLOWLY TOWARDS POC GOALS.
[2020-05-22 16:02] VITALS: BP 126/66
--- NOTE | 2020-05-22 18:32 | NUR ---
Patient got to the floor around 6:30pm, A/O*4, calm. no signs of short of breathing, on 3L. The 3w nurse claimed the patient was on 4L last night, patient claimed she was on 6L last night. Will pass this on to the night nurse.
[2020-05-22 22:30] VITALS: BP 137/79
[2020-05-23 00:05] VITALS: BP 137/79
[2020-05-23 07:45] VITALS: BP 142/98
--- NOTE | 2020-05-23 07:48 | NUR ---
Assumed pt care at 1900, VSS. C/o pain to BLE,medicated per EMAR with relief reported. Up ad jonathan w/cane to BSC. Midline patent on RUE. Does call appropriately as needed for help.
[2020-05-23 10:51] VITALS: BP 155/90
[2020-05-23 12:06] LABS: MCH 25.1 pg (26.0-34.0); MCHC 31.4 g/dL (28.0-37.0); MCV 79.8 fL (80.0-100.0); RBC 4.39 mil/uL (4.20-5.00); RDW 17.3 % (10.5-14.5); WBC 8.1 thou/uL (4.0-11.0)
[2020-05-23 12:15] LABS: CALCIUM 8.7 mg/dL (8.5-10.1); CREATININE 1.5 mg/dL (0.6-1.0); MAGNESIUM 2.1 mg/dL (1.8-2.4); POTASSIUM 4.8 mmol/L (3.5-5.1)
--- NOTE | 2020-05-23 12:52 | NUR ---
Nutrition Note: Pt seen for LOS. Appetite doing well QUAD STAYER and at present. Currently eating 50-100% of meals. Wt reported at 225# on admit, however noted at 198# via bedscale. Pt denies wt loss QUAD STAYER. Pt with cellulitis, no pressure ulcers noted. No c/o GI distress. Pt remains low nutritional risk with current interventions.
--- NOTE | 2020-05-23 13:31 | NUR ---
ASSUMED PT CARE THIS AM. PT VSS, A&OX4. PT FRUSTRATED WITH PHYSICIAN REGARDING DIET ORDERED, PASSED THIS MESSAGE ALONG TO PHYSICIAN. EDUCATED PATIENT THAT DIET IS UP TO PHYSICIAN AND NURSING STAFF CANNOT CHANGE THIS ORDER. TOOK MEDS WELL THIS AM. PAIN NOTED IN THE BACK AND RIGHT LEG. LOOSE COUGH NOTED, PT UNABLE TO COUGH UP ANY SPUTUM. ON 3L OXYGEN NC. AMBULATORY WITH A CANE. REFUSED INITIAL LAB DRAW THIS AM, MIDLINE NOT DRAWING AND PATIENT DID NOT WANT TO BE STUCK WITH A NEEDLE. REPORTED THIS TO IV TEAM, AND IV TEAM WAS ABLE TO DRAW LABS TO BE SENT DOWN. CALLS APPROPRIATELY WHEN NEEDED.
[2020-05-23] MEDS ORDERED: OXYCODONE HCL 55 MG PO (15:46)
[2020-05-23] MEDS ORDERED: MIRALAX17 GM PO (15:46)
[2020-05-23] MEDS ORDERED: ACETAMINOPHEN325 M1 PO (15:46)
[2020-05-23] MEDS ORDERED: PREDNISONE 20 M20 M1 PO (15:46)
[2020-05-23] MEDS ORDERED: NYSTATIN-TRIAMC15 GM TOP (15:46)
[2020-05-23] MEDS ORDERED: DOXYCYCLINE 10100 M2 PO (15:46)
--- NOTE | 2020-05-23 15:49 | NUR ---
PHYSICIAN INDICATED THAT PT IS MEDCIALLY STABLE TO DISHCARGE HOME THIS DAY. CLINICAL UPDATE AND ORDERS SENT TO [facility] FOR SERVICES UPON DC. CM CONTACTED [facility] FOR A PORTABLE TANK TO BE DELIVERED FOR PT TO TAKE HOME WITH HER THIS EVENING. JEFF THEIR LIAISON IS TO DELIVER A TANK. PT INDICATED THAT SHE HAS SOMEONE WHO WILL BE ABLE TO PICK HER UP LATER THIS EVENING. NO OTHER CM INTERVENTION INDICATED. CASE CLOSED.
[2020-05-23 17:15] VITALS: BP 135/87
== END 2020-05-23 19:00 | disposition home health service (06) | DRG 871 ==
LOC: ER 11:50 → EROBS 15:46 → 3W 15:46 → 4W 05-22 18:36
PROVIDERS: Emergency Medicine; Internal Medicine; ADMIT Internal Medicine; ATTEND Internal Medicine
PROC: 05H933Z Insertion of Infusion Device into Right Brachial Vein, Percutaneous Approach (ICD-10-PCS; principal; 2020-05-18)
DX: A41.9 Sepsis, unspecified organism (principal); J18.0 Bronchopneumonia, unspecified organism; J96.21 Acute and chronic respiratory failure with hypoxia; J18.9 Pneumonia, unspecified organism; J44.1 Chronic obstructive pulmonary disease with (acute) exacerbation; I48.20 Chronic atrial fibrillation, unspecified; L03.313 Cellulitis of chest wall; F11.20 Opioid dependence, uncomplicated; I50.32 Chronic diastolic (congestive) heart failure; I13.0 Hypertensive heart and chronic kidney disease with heart failure and stage 1 through stage 4 chronic kidney disease, or unspecified chronic kidney disease; Z20.822 Contact with and (suspected) exposure to COVID-19; F41.9 Anxiety disorder, unspecified; N18.9 Chronic kidney disease, unspecified; K29.70 Gastritis, unspecified, without bleeding; K21.9 Gastro-esophageal reflux disease without esophagitis; M25.569 Pain in unspecified knee; E66.01 Morbid (severe) obesity due to excess calories; B37.2 Candidiasis of skin and nail; G89.4 Chronic pain syndrome; Z90.710 Acquired absence of both cervix and uterus; Z88.1 Allergy status to other antibiotic agents; Z88.2 Allergy status to sulfonamides; Z68.36 Body mass index [BMI] 36.0-36.9, adult; Z79.899 Other long term (current) drug therapy
CPT/HCPCS: 10047; 10779; 10879; 27000

== ENCOUNTER → 2020-09-24 | Outpatient (CLI) | payer OTHER ==
[~2020-09-24] MED LIST changes: +ACETAMINOPHEN325 M1 PO; +DOXYCYCLINE 10100 M2 PO; +NYSTATIN-TRIAMC15 GM TOP; +ONDANSETRON HCL4 M3 PO
== END ==
LOC: RAD 13:38
PROVIDERS: ATTEND Family Medicine
DX: Z13.820 Encounter for screening for osteoporosis (principal); M81.8 Other osteoporosis without current pathological fracture; Z78.0 Asymptomatic menopausal state

== ENCOUNTER → 2020-09-27 | Outpatient (CLI) | payer OTHER | LOC: RAD 10:30 | PROVIDERS: ATTEND Family Medicine | DX: N64.4 Mastodynia (principal) ==

== ENCOUNTER 2021-01-22 23:41 | Inpatient (IN) | payer OTHER ==
[~2021-01-22] VITALS: Ht 160 cm; Wt 82.1 kg
--- NOTE | ~2021-01-22 | EMS ---
[address] [address] EMS Patient Care Report Name: TERI CRUZ Room #: 200-I ADM IN M.R.#: [id number] Admission: 01/23/21 Attend Phys: Bart Gil MD Discharge: Date of : 51 Report #: [id number] THIS REPORT FOR: //name// Report Transmitted: 01/23/2021 07:04 EMS Care Summary [facility] [place] Incident [id number] @ 01/22/2021 23:01 Incident Location [id number] [place] [address] Patient TERI CRUZ Female, 55 Years 1965-03-24 Patient Address [address] [place] [address] Patient History Asthma,Chronic Obstructive Pulmonary Disease (COPD),Hypertension (HTN),Hyperlipidemia,Atrial Fibrillation, Patient Allergies Sulfa, Patient Medications Diltiazem, Metoprolol, Albuterol, Alprazolam, Singulair, Oxycodone, Chief Complaint SOA Disposition Transported No Lights/Robbins Dispatch Reason Breathing Problem Transported To [facility] Narrative DISPATCHED EMERGENCY ON A SOA. PUMPER 42 ARRIVES ON SCENE JUST BEFORE EMS. PT BEING PUSHED IN WHEELCHAIR TO FRONT DOOR OF BUILDING. 55 Y/O FEMALE APPEARING [address] [address] EMS Patient Care Report Name: TERI CRUZ Room #: 200-I ADM IN .Tanner.#: [id number] Admission: 01/23/21 Attend Phys: Bart Gil MD Discharge: Date of : 51 Report #: [id number] IN DISTRESS AND SPEAKING IN 1-2 WORD SENTENCES. GCS 15 AND A/OX4. CONSENTS FOR TX AND REQUESTS TRANSPORTATION TO [facility]. PT HAS AUDIBLE WHEEZING AND R/R IS INCREASED. IMMEDIATELY MOVED TO AMBULANCE VIA STRETCHER WHILE NEBULIZER TX PREPARED. FEMALE ON SCENE STATES THAT PT'S OXYGEN SATURATION WAS 77% ON THE PULSE OX THEY HAD. PT STATES SHE HAS COPD AND ASTHMA. STATES SHE STARTED HAVING INCREASED SOA, BODY ACHES, LOW GRADE FEVER, AND A COUGH 2 DAYS AGO. ALBUTEROL AND ATROVENT ADMINISTERED VIA NEBULIZER. PLACED ON MONITOR AND V/S'S OBTAINED. H/R IS IRREGULAR. IV ATTEMPTED WITHOUT ESTABLISHMENT. ECG OBTAINED SHOWING A-FIB. PT STATES SHE HAS A HISTORY OF THIS. TRANSPORTED TO [facility]. REASSESSED ENROUTE. REMAINS GCS 15 AND ALERT. PT IS NOW SPEAKING IN FULL SENTENCES. R/R AND WHEEZING HAS IMPROVED. REPORT CALLED TO HOSPITAL. MOVED WITHOUT INCIDENT TO ER HOSPTIAL BED. PT CARE TRANSFERRED TO ED RN. Initial Vitals @23:13P: 93,R: 30,BP: 164/108,Pain: 0/10,GCS: 15,Temp: 97.7F,Revised Trauma: 11, @23:28P: 163,R: 22,BP: 134/90,GCS: 15,CO: 5,SpO2: 98,Revised Trauma: 12, @23:19P: 142,R: 28,BP: 155/107,GCS: 15,CO: 7,Revised Trauma: 12,HI Suspected: false Assessments @23:10MENTAL:Place Oriented,Person Oriented,Time Oriented,Event Oriented,SKIN:HEENT:Head/Face: No Abnormalities,Neck/Airway: No Abnormalities,LUNG SOUNDS:ABDOMEN:PELVIS//GI:EXTREMITIES:Capillary Refill: Right Lower: < 2 Sec,Capillary Refill: Left Upper: < 2 Sec,Capillary Refill: Left Lower: < 2 Sec,Capillary Refill: Right Upper: < 2 Sec,Left Arm: No Abnormalities,Right Arm: No Abnormalities,Left Leg: No Abnormalities,Right Leg: No Abnormalities,PULSE:Radial: 2+ Normal,NEURO:No Abnormalities,@23:25MENTAL:Event Oriented,Person Oriented,Time Oriented,Place Oriented,SKIN:HEENT:Head/Face: No Abnormalities,Neck/Airway: No Abnormalities,LUNG SOUNDS:ABDOMEN:PELVIS//GI:EXTREMITIES:Capillary Refill: Left Upper: < 2 Sec,Capillary Refill: Right Upper: < 2 Sec,Left Arm: No Abnormalities,Right Arm: No Abnormalities,PULSE:Radial: 2+ Normal,NEURO: Impression Shortness of breath Procedures @23:193-Lead ECGResponse: UnchangedSucceeded@23:18Saline Lock cc (20 ga) Site: Forearm-LeftResponse: UnchangedFailed@23:10ALS AssessmentResponse: UnchangedSucceeded@23:13Oxygen FlowRate: 10 Device: Nebulizer Response: ImprovedSucceeded@23:13Albuterol - 5 Milligrams (mg) - NebulizedResponse: Improved@23:13Atrovent - 0.5 Milligrams (mg) - NebulizedResponse: Improved@23:11StretcherResponse: Unchanged Timeline 22:59,Call Received [facility] [address] [place] [address] EMS Patient Care Report Name: TERI CRUZ Room #: 200-I ADM IN M.R.#: [id number] Admission: 01/23/21 Attend Phys: Bart Gil MD Discharge: Date of : 51 Report #: [id number] 22:59,Dispatch Notified 23:01,Dispatched 23:02,En Route 23:07,On Scene 23:09,At Patient 23:10,ALS Assessment,Response: UnchangedSucceeded, 23:11,Stretcher,Response: Unchanged 23:13,Oxygen FlowRate: 10 Device: Nebulizer Response: ImprovedSucceeded, 23:13,Albuterol - 5 Milligrams (mg) - Nebulized,Response: Improved 23:13,Atrovent - 0.5 Milligrams (mg) - Nebulized,Response: Improved 23:13,BP: 164/108 M,PULSE: 93,RR: 30 R,SPO2: Ox,ETCO2: ,BG: ,PAIN: 0,GCS: 15, 23:18,Saline Lock cc 20 ga Site: Forearm-Left,Response: UnchangedFailed, 23:19,3-Lead ECG,Response: UnchangedSucceeded, 23:19,BP: 155/107 M,PULSE: 142,RR: 28 R,SPO2: Ox,ETCO2: ,BG: ,PAIN: ,GCS: 15, 23:20,Depart Scene 23:28,BP: 134/90 M,PULSE: 163,RR: 22 R,SPO2: 98 Ox,ETCO2: ,BG: ,PAIN: ,GCS: 15, 23:41,At Destination 23:47,Call Closed Disclaimer v1.1 Copyright 2020 [employer] This EMS Care Summary contains data elements from the applicable legal record (which may be displayed differently). It is designed to provide pertinent information for the following purposes: continuity of care, clinical quality, and state data reporting. The complete legal record is available to ED staff and administrators of the receiving hospital in [facility]'s Patient Tracker. All data is provided "as is."
[2021-01-22 23:43] VITALS: BP 144/72
[2021-01-23] VITALS (14 sets, daily range): BP systolic 103–157; BP diastolic 61–109
--- NOTE | 2021-01-23 01:04 | NUR ---
LAB CALLED AT THIS TIME FOR THE SECOND TIME TO OBTAIN BLOOD DRAWS.
[2021-01-23 01:53] LABS: ABSOLUTE NEUTROPHILS 6.1 thou/uL (1.4-8.2); BASOPHILS 0.6 % (0.0-2.0); EOSINOPHILS 0.1 % (0.0-3.0); HEMATOCRIT 38.4 % (37.0-47.0); HEMOGLOBIN 12.3 gm/dL (12.0-15.0); LYMPHOCYTES 7.7 % (24.0-44.0); MCH 24.9 pg (26.0-34.0); MCV 77.9 fL (80.0-100.0); MONOCYTES 7.2 % (1.0-8.0); PLATELET COUNT 112 thou/uL (150-400); POLYS 84.4 % (36.0-66.0); RBC 4.93 mil/uL (4.20-5.00); RDW 15.4 % (10.5-14.5); WBC 7.3 thou/uL (4.0-11.0)
[2021-01-23 02:03] LABS: CALCIUM 8.6 mg/dL (8.5-10.1); CREATININE 1.1 mg/dL (0.6-1.0); POTASSIUM 4.5 mmol/L (3.5-5.1)
[2021-01-23 02:13] LABS: ALBUMIN 3.5 g/dL (3.4-5.0); DIRECT BILIRUBIN 0.2 mg/dL (<0.1-0.2); TOTAL BILIRUBIN 0.9 mg/dL (0.2-1.0); TOTAL PROTEIN 6.8 g/dL (6.4-8.2)
[2021-01-23] MEDS ORDERED: ROXICODONE15 MG PO (05:54)
[2021-01-23] MEDS ORDERED: CIPROFLOXACIN500 M1 PO (05:55)
[2021-01-23 06:32] LABS: BE(vivo) 0.1 mmol/L (-2 to +3); HCO3 25.8 mmol/L (22.0-26.0); PCO2 46.2 mmHg (35.0-45.0); PO2 63.9 mmHg (80.0-100.0); pH 7.365 (7.360-7.450); sO2 91.6 % (92.0-98.0)
[2021-01-23 07:15] LABS: MCH 24.9 pg (26.0-34.0); MCHC 32.3 g/dL (28.0-37.0); MCV 77.1 fL (80.0-100.0); RBC 4.41 mil/uL (4.20-5.00); RDW 15.9 % (10.5-14.5); WBC 4.9 thou/uL (4.0-11.0)
--- NOTE | 2021-01-23 08:00 | NUR ---
THIS NURSE TOOK PT TO ER, SPOKE WITH CCU RN, HEART IN 140'S CARDIOLOGY AWARE, WILL SEE PT ON THE UNIT, INCREASED CARDIZEM TO 15MG, HEPARIN INFUSING, PT MOVED AND PLACED INTO INPT BED, ON OXYGEN, BED ALARM ON, SAP PORTAL CONSULTANT PLACED ON PT
[2021-01-23 10:24] LABS: BE(vivo) 2.4 mmol/L (-2 to +3); HCO3 25.7 mmol/L (22.0-26.0); PCO2 35.7 mmHg (35.0-45.0); PO2 76.7 mmHg (80.0-100.0); pH 7.475 (7.360-7.450); sO2 96.2 % (92.0-98.0)
--- NOTE | 2021-01-23 10:56 | NUR ---
THIS SHEARING MACHINE TENDER REACHED THE EMERGENCY CONTACT FOR THE PATIENT AND ASKED HER TO CALL THE PATIENT'S NURSE. EMERGENCY CONTACT WAS SURPRISED THE PATIENT LISTED HER, BUT SHE SAID SHE HAS KNOWN THE PATIENT FOR MANY YEARS. SHE SAID THE PATIENT HAS A NIECE IN [place]OWN. SHE DOES NOT KNOW THE PHONE NUMBER BUT KNOWS SHE LIVES IN HER FATHER'S FORMER HOME AND SHE COULD FIND IT. SHE SAID THE PATIENT ALSO HAS A SISTER IN [place]OWN BUT DOES NOT WHERE SHE LIVES OR HOW TO GET IN TOUCH WITH HER.
--- NOTE | 2021-01-23 12:10 | NUR ---
PATIENT ADMITTED TO CCU ROOM 200 FROM ED AT SHIFT CHANGE. UPON ARRIVAL, DAINA WAS ALERT/ORIENTEDX4. ABLE TO HAVE FULL CONVERSATION, TRANSFERED TO [place] [address]. PATIENT AFIB(RVR) ON MONITOR. RATES 150-160'S. ON CARDIZEM GTT. HEPARIN GTT INFUSING. ORDERS BY CARDIOLOGY TO D/C BOTH GTTS AND START ON PO MEDICATIONS PER ORDERED. WITH IN THE NEXT HOUR PATIENT BECAME LESS RESPONSIVE. DIFFUCULT TO AROUSE. SNORING RESPIRATIONS. DR. LARSON NOTIFED. 1MG NARCAN GIVEN PER ORDERS. PATIENT BECAME AGITATED AFTER ADMINISTRATION AND THEN BECAME UNRESPONSIVE WITH SNORING RESPIRATIONS. RAPID RESPONSE INITIATED. ORDERS FOR ADDITIONAL 1MG NARCAN, BIPAP AND ABG. [place] PLACED. PATIENT NOTED WITH RIGHT SIDED FACIAL DROOP, CODE STROKE CALLED AND CANCELLED BY DR. LARSON, DID NOT WANT CT OF HEAD AT THIS TIME. PATIENT NOW HYPERTENSIVE, BLOOD PRESSURES 200 SYSTOLIC. PULLING AT LINES/BIPAP. ORDERS TO TRANSFER TO THE ICU FOR CLOSER MONTIORING.
--- NOTE | 2021-01-23 13:22 | NUR ---
pt. became less responsive & SOA-CONFIGURATION MANAGEMENT MANAGER activated-see flowsheet
--- NOTE | 2021-01-23 15:58 | NUR ---
PT ARRIVED ON THE UNIT 1130 PT IS COMPLETELY INTACT AND ORIENTED X 4 AT 1530 PT STARTED TO COMPLAIN OF PAIN. I SPOKE TO DR. LARSON AND HE SAID BASED ON HER GOING NON RESPONSIVE THIS MORNING HE IS NOT COMFORTABLE GIVING HER OXY AND HE PRESCRIBED SOMETHING ELSE FOR PAIN. THE PATIENT IS NOT HAPPY ABOUT NOT GETTIN HER NORMAL MEDICATIONS AND STATED THAT SHE IS GOING TO CHECK HERSELF OUT OF THE HOSPITAL. I TOLD HER THAT SHE IS FREE TO DO SO BUT THAT INSURANCE MAY NOT PAY FOR HER STAY IF SHE LEAVES [place].
--- NOTE | 2021-01-23 16:19 | NUR ---
DISCUSED PICC LINE PLACEMENT WITH THE PATIENT AND SHE VERBALIZED UNDERSTANDING OF BENIFITS AND RISKS FOR DVT, INFECTION AND VESSEL WAS DAMAGE. THE RIGHT UPPER ARM BASILIC WAS WIDLEY PATENT. A #5F TRIPLE LUMEN POWER PICC WAS PLACED PER HOSPITAL POLICY AFTER A BEDSIDE TIMEOUT WAS COMPLETED. THE PICC WAS TRIMMED TO 43AM AND ADVANCED TO 1 CM EXTERNAL. THE LINE WAS CONFIRMED AITH SHERMARK 3CG AT 1 CM OUT. THE LINE WAS SECURED AND RELEASED FOR USE
--- NOTE | 2021-01-23 16:25 | NUR ---
Chart review, She was transferred over from [facility], r/t changes in loc. Rapid response and code stroke call and cancelled. Unable to visit r/t on bipap. She from home alone. Has cane and walker. Home oxygen from [facility]. [facility] in past with [facility] and had [facility] through medicaid. PCP Dr Singh. Has brother vishal # [phone] listed and a friend palomo # [phone]. Palomo reported that she also has a sister and niece in area, unsure of location or numbers to contact them. Will cont following as needed for dc needs.
[2021-01-24] VITALS (14 sets, daily range): BP systolic 116–143; BP diastolic 70–96
[2021-01-24 05:15] LABS: HEMATOCRIT 36.9 % (37.0-47.0); HEMOGLOBIN 12.2 gm/dL (12.0-15.0); MCH 25.1 pg (26.0-34.0); MCV 76.1 fL (80.0-100.0); RBC 4.85 mil/uL (4.20-5.00); RDW 15.5 % (10.5-14.5); WBC 12.6 thou/uL (4.0-11.0)
[2021-01-24 05:29] LABS: CALCIUM 8.9 mg/dL (8.5-10.1); CREATININE 1.1 mg/dL (0.6-1.0); POTASSIUM 4.1 mmol/L (3.5-5.1)
--- NOTE | 2021-01-24 07:11 | EKG ---
[address] [place] [address] ELECTROCARDIOGRAM REPORT Name: TERI CRUZ Room #: 243-P ADM IN M.R.#: [id number] Admission: 01/23/21 Attend Phys: Bart Gil MD Discharge: Date of : 51 Report #: [id number] [facility] ED Test Date: 2021-01-23 Test Time: 00:47:04 Pat Name: TERI CRUZ Department: Room: [facility] Gender: F Special Effects Technician: cathy : 1955 Requested By: Anna Aguayo Order Number: [id number] MD: Osman Rodriguez Measurements Intervals [place] Rate: 164 P: TN: QRS: 252 QRSD: 98 T: 92 QT: 314 QTc: 519 Interpretive Statements Atrial fibrillation with rapid V-rate Compared to ECG 05/18/2020 12:28:16 Atrial flutter no longer present Right bundle-branch block no longer present T-wave abnormality no longer present Electronically Signed On 01-24-2021 7:10:46 CDT by Osman Rodriguez [email or web address] <ELECTRONICALLY SIGNED> By: Osman Rodriguez MD, [facility] 01/24/21 0710 0047 0047 Osman Rodriguez MD, [facility] /EPI
--- NOTE | 2021-01-24 07:46 | NUR ---
PT IS SLOWLY PROGRESSING TOWARDS PLAN OF CARE EVIDENCED CONTINUED DEPENDENCE ON CARDIZEM DRIP FOR BP SUPPORT.
--- NOTE | 2021-01-24 09:33 | 2DMMODE ---
[facility] [place] [address] 2 D/M-MODE ECHOCARDIOGRAM Name: TERI CRUZ Room #: 243-P ADM IN M.R.#: [id number] Admission: 01/23/21 Attend Phys: Bart Gil MD Discharge: Date of : 51 Report #: [id number] THIS REPORT FOR: cc: Jeromy Singh James V. DO Santiago, Patrick MD [facility] ~ APPROVED REPORT Study performed: 01/24/2021 08:49:59 EXAM: Comprehensive 2D, Doppler, and color-flow Echocardiogram Patient Location: ICU Room #: 243 Status: routine BSA: 1.99 HR: 140 bpm BP: 113/61 mmHg Rhythm: Atrial Fibrillation Other Information Study Quality: Adequate Indications Afib with RVR. Heart rate ranged from 110-160. Hx: CHF, COPD, HTN, HLP. 2D Dimensions IVSd: 11.88 (7-11mm) LVOT Diam: 19.99 (18-24mm) LVDd: 44.27 mm PWd: 12.07 (7-11mm) Ascending Ao: 27.23 (22-36mm) LVDs: 32.34 (25-40mm) Left Atrium: 51.35 (27-40mm) Aortic Root: 35.23 mm Volumes Left Atrial Volume (Systole) Single Plane 4CH: 104.14 mL Single Plane 2CH: 85.86 mL LA ESV Index: 51.00 mL/m2 Aortic Valve AoV Peak Moiz.: 1.10 m/s AO Peak Gr.: 7.02 mmHg LVOT Max P.79 mmHg LVOT Max V: 0.97 m/s DAVID Vmax: 2.77 cm2 [facility] [address] [place] [address] 2 D/M-MODE ECHOCARDIOGRAM Name: TERI CRUZ Room #: [address] [place] [address] IN [facility]#: [id number] Admission: 01/23/21 Attend Phys: Bart Gil MD Discharge: Date of : 51 Report #: [id number] Mitral Valve MV Decel. Time: 49.44 ms MV E Max Moiz.: 1.59 m/s Pulmonary Valve PV Peak Moiz.: 0.96 m/s PV Peak Gr.: 3.86 mmHg Tricuspid Valve TR Peak Moiz.: 2.50 m/s RAP Estimate: 15.00 mmHg TR Peak Gr.: 26.00 mmHg PA Pressure: 41.00 mmHg Left Ventricle The left ventricle is normal size. There is normal LV segmental wall motion. Mild concentric left ventricular hypertrophy. Left ventricular systolic function is normal. LVEF is 50%. This study is not technically sufficient to allow evaluation of the LV diastolic function due to atrial fibrillation. Right Ventricle The right ventricle is normal size. The right ventricular systolic function is normal. Atria Left atrium is severely dilated. Right atrium is moderately dilated. Aortic Valve The aortic valve is normal in structure; mildly sclerotic. No aortic regurgitation is present. There is no aortic valvular stenosis. Mitral Valve The mitral valve is normal in structure. Mild mitral annular calcification. Moderate mitral regurgitation. Tricuspid Valve The tricuspid valve is normal in structure. Moderate tricuspid regurgitation. Estimated PAP is 40mmHg. Pulmonic Valve The pulmonary valve is normal in structure. Trace pulmonic regurgitation. Great Vessels [facility] [address] [place] [address] 2 D/M-MODE ECHOCARDIOGRAM Name: TERI CRUZ Room #: [facility] IN M.R.#: [id number] Admission: 01/23/21 Attend Phys: Bart Gil MD Discharge: Date of : 51 Report #: [id number] The aortic root is normal in size. The ascending aorta is normal in size. IVC is dilated and collapses <50% with inspiration. Pericardium There is no pericardial effusion. <Conclusion> Study performed in atrial fibrillation Normal left ventricle size/wall thickness Ejection fraction 50% Severe anteroseptal hypokineses Normal right ventricle size/function Moderate to severe left atrial enlargement Moderate right atrial enlargement Aortic valve calcification without stenosis Mild mitral annular calcification Moderate posteriorly directed mitral valve insufficiency Moderate tricuspid valve insufficiency Pulmonary systolic pressure estimated 40 mmHg Normal aortic root size No pericardial effusion <ELECTRONICALLY SIGNED> By: Osman Rodriguez MD, [facility] [id number] 2 2 Osman Rodriguez MD, FAC /INF
--- NOTE | 2021-01-24 10:52 | NUR ---
ASSUMED CARE OF PT AT 0700 DR. LARSON AT BEDSIDE AT 0930, ORDERS TO TRANSFER OFF THE UNIT GIVEN PT IS MEETING GOALS AND WAS TRANSFERED TO CCU AFTER GIVING HAND OFF REPORT TO [place] AT 1030.
--- NOTE | 2021-01-24 16:46 | NUR ---
PATIENT TRANSFERRED FROM ICU. PATIENT CONTINUES HAVE AFIB RVR RHYTHM. CARDIZEM DRIP CONTINUED PER CARDIOLOGY; INFORMED NICOLA OLIVA REGARDING PATIENTS CONTINUED ELEVATED HEART RATE; SHE STATED THEY ARE AWARE, ADJUSTED PATIENT LOPRESSOR, AND STATED "DIFFICULT TO MANAGE." PATIENT OFTEN AGITATED ASKING FOR PAIN MEDICATION. ADMINISTERED PRN PAIN MEDICATION; PATIENT REPORTS KNEE AND BACK PAIN. PATIENT WEARING 4 L OXYGEN VIA NC; DENIES SOA, DENIES CHEST PAIN, DENIES HEADACHE, NAUSEA, VOMITING, OR DIZZINESS. PATIENT RESTING IN BED; DENIES ANY NEEDS. FALL PRECAUTIONS IN PLACE AND CALL LIGHT WITHIN REACH.
--- NOTE | 2021-01-24 18:31 | NUR ---
PATIENT CONTINUED TO HAVE ELEVATED HEART RATE 110-150'S. INFORMED FAY OF CONTINUED TACHYCARDIA; GAVE 1 TIME ORDER OF METOPROLOL. PATIENT HEART RATE HAS PARTIAL RELIEF. RATE NOW 110'S-120'S.
--- NOTE | 2021-01-24 21:43 | NUR ---
CARDIZEM GTT STOPPED BEFORE GIVING 2100 RATE CONTROL MEDICATIONS DUE TO PATIENTS HYPOTENSIVE BLOOD PRESSURE. NURSE TO CONTINUE TO ASSESS.
[2021-01-25 04:46] VITALS: BP 108/67
[2021-01-25 08:30] VITALS: BP 107/74; BP 143/93
[2021-01-25 10:03] VITALS: BP 143/93
--- NOTE | 2021-01-25 11:37 | NUR ---
TOOK OVER CARE OF PATIENT AT 0700. PATIENT COMPLAINT OF NAUSEA; ADMINISTERED PRN ZOFRAN. PATIENT CONTINUES TO HAVE NAUSEA BUT NO EMESIS NOTED; DR. LARSON ORDERED 10 MG REGLAN Q 6 HOURS. PATIENT RESTING IN BED AT THIS TIME; FALL PRECAUTIONS IN PLACE AND CALL LIGHT WITHIN REACH. WILL CONTINUE TO MONITOR NAUSEA.
[2021-01-25 12:00] VITALS: BP 140/93
[2021-01-25 15:30] VITALS: BP 114/59
[2021-01-25 19:22] VITALS: BP 101/63
[2021-01-26 04:18] VITALS: BP 127/91
[2021-01-26 04:39] LABS: HEMATOCRIT 37.5 % (37.0-47.0); HEMOGLOBIN 12.3 gm/dL (12.0-15.0); MCH 25.1 pg (26.0-34.0); MCHC 32.7 g/dL (28.0-37.0); MCV 76.5 fL (80.0-100.0); RBC 4.89 mil/uL (4.20-5.00); RDW 15.5 % (10.5-14.5); WBC 8.1 thou/uL (4.0-11.0)
[2021-01-26 08:30] VITALS: BP 109/62
[2021-01-26 12:00] VITALS: BP 114/54
[2021-01-26 16:50] VITALS: BP 122/72
--- NOTE | 2021-01-26 19:59 | NUR ---
ASSUMED PATIENT CARE AT 0700. A/O X4. PATIENT REFUSED TO HAVE MAGNESIUM CITRATE. NO M/V NOTED. MELYSSA PARKER WILL NOP AFTER MIGNIGHT TO HAVE ALATION IN AM. KEEP MONITOR.
[2021-01-26 20:50] VITALS: BP 110/74
--- NOTE | 2021-01-27 01:35 | NUR ---
UPON SHIFT REPORT, PT ANXIOUS WITH NONPRODUCTIVE COUGH, REPORTING 8/10 PAIN IN BACK, BLE, BUTT, AND RIGHT SHOULDER. UPON SHIFT ASSESSMENT, PT AOX4 WITH ANXIETY AND INTERMITTENT FORGETFULNESS. PT RECEIVING PRN PO XANAX TID. PT REPORTS 9/10 GENERALIZED BODY PAIN. PT RECEIVING PRN PO OXYCODONE Q6HR WITH PRN PO APAP Q6HR AVAILABLE. PT TOLERATING PO INTAKE OF FLUIDS AND HEARTY HEALTHY DIET WITHOUT ISSUE, NPO AT MIDNIGHT. ONCALL MAINTENANCE HELPER NOTIFIED FOR PRN IV PAIN MEDICATION, EMAR UPDATED. PT WITHOUT NAUSEA OR EMESIS. PT AMBULATING INDEPENDENTLY IN ROOM AND TO BEDSIDE COMMODE. PT WITH INTERMITTENT STRESS INCONTINENCE. PT RESTING IN BED OTHERWISE, FREQUENT REPOSITIONING ENCOURAGED WHILE IN BED, PT NOTED TO SHIFT INDEPENDENLY. +1 PITTING EDEMA NOTED TO RLE. SENSATION INTACT, CAPILLARY REFILL LESS THAN 3SEC, PERIPHERAL PULSES PALPABLE IN ALL EXTREMITIES. PT ENCOURAGED TO NOTIFY STAFF FOR ALL NEEDS, CALL LIGHT WITHIN REACH, BED LOCKED IN LOWEST POSITION, FREQUENT MONITORING WILL CONTINUE.
[2021-01-27 03:00] VITALS: BP 130/79
[2021-01-27 08:30] VITALS: BP 132/77
--- NOTE | 2021-01-27 17:53 | NUR ---
PT SENT TO FAST FOOD ASSISTANT RESTAURANT MANAGER TODAY WAS OFF UNIT BETWEEN 1030 TO 1645. RECEIVED ATRIAL PACEMAKER AND ATRIAL ABLASION. GROINS SITE CLEAN DRY AND INTACT. PACU STATED PT HAD 1 LARGE BOWEL MOVEMENT.
[2021-01-27 20:45] VITALS: BP 138/86
[2021-01-28 00:05] VITALS: BP 127/80
[2021-01-28 04:45] VITALS: BP 119/73
[2021-01-28 08:51] VITALS: BP 172/115
[2021-01-28 11:37] VITALS: BP 132/70
--- NOTE | 2021-01-28 11:57 | NUR ---
Assumed care of pt this AM. Pt is A&O x4, on 1L NC. Denies any chest pain. SR w/ BBB on the monitor. Pt c/o pain of the back, both shoulders, and hips. PRN medication given. Educated pt about mixing pain medication & how it cause AMS which is what pt was in ICU for. LUE immobilzer in place for pacemaker. Pt needs reminding about limitations. Will continue to assess pt needs.
[2021-01-28 15:36] VITALS: BP 117/67
[2021-01-28 21:11] VITALS: BP 119/77
[2021-01-29 04:00] VITALS: BP 125/68
[2021-01-29 06:13] LABS: HEMOGLOBIN 12.5 gm/dL (12.0-15.0); MCH 24.6 pg (26.0-34.0); MCV 76.9 fL (80.0-100.0); RBC 5.08 mil/uL (4.20-5.00); RDW 15.6 % (10.5-14.5); WBC 12.5 thou/uL (4.0-11.0)
[2021-01-29 06:39] LABS: CHOLESTEROL 94 mg/dL (<200); HDL CHOLESTEROL 63 mg/dL (>40); LDL CHOLESTEROL 21 mg/dL (<100); TC:HDL 1.5 Ratio (Not establshd); TRIGLYCERIDE 50 mg/dL (<150); VLDL 10 mg/dL (<40)
[2021-01-29 06:48] LABS: SERUM ASSESSMENT Clear
--- NOTE | 2021-01-29 07:33 | NUR ---
PROGRESS PT A/O X4, UP WITH SBA TO BSC VOIDING QS. VSS, TELEMETRY INTACT READING VPACED WITH RATES IN THE 80'S. RATES PAIN GENERALIZED AN 8 AND TAKING 10 MG OXYCODONE Q6HRS WITH EFFECT RATES PAIN A 5 AFTER. SUSI PICC LINE WITH GOOD BLOOD RETURN AND FLUSHES WITHOUT DIFFICULTY. LABS DRAWN CAPS REPLACED AND FLUSHED PER PROTOCOL. PT HOPES TO DISCHARGE HOME IN THE NEXT FEW DAYS WITH HOME HEALTH.
[2021-01-29 07:57] VITALS: BP 121/83
[2021-01-29 08:00] VITALS: BP 121/83
--- NOTE | 2021-01-29 10:00 | NUR ---
ASSUMED CARE OF PT AT 0700. PT IS SITTING UP IN BED AT TIME OF ASSESSMETN AND MEDICATION ADMINISTRATION. PT IS CALM AND PLESANT DURING ASSESSMENT. PT IS COMPLIANT WITH MEDICATIONS WHOLE WITH WATER. PT REPORTS 10/10 BACK PAIN DURING ASSESSMENT PRN OXYCODONE GIVEN FOR PAIN. PT REPORTED 5/10 PAIN ONE HOUR LATER. PT IS RESTING IN BED AT THIST TIME. WILL CONTINUE TO MONITOR.
[2021-01-29] MEDS ORDERED: BAYER CHEWABLE81 MG PO (13:39)
[2021-01-29] MEDS ORDERED: NORVASC10 MG PO (13:39)
[2021-01-29] MEDS ORDERED: PREDNISONE 10 M10 M1 PO (13:40)
--- NOTE | 2021-01-29 17:42 | NUR ---
met with patient and discussed HH care. She prefers [facility] that she has used in past. Faxed clinical and orders to [facility] who reports they are full in [place] area and cannot staff. Updated patient who wants to review HH list. Went back to room multiple times for her choice for HH Care. Faxed to [facility] who reports they do not accept her insurance. [facility] reports [facility], [facility], [facility] and [facility] in network. Updated patient who cannot make decision at this time. [facility] reports they do not take [facility] complete. Updated patient who reports she cannot make decision. [facility] to call her at home tomorrow. Patient does not want to use [facility] has used in past. [facility] to call in am.
== END 2021-01-29 17:45 | disposition home or self-care (01) | DRG 853 ==
LOC: ER 23:41 → ICU 01-23 03:01 → EROBS 01-23 03:01 → 2N 01-23 03:01 → ICU 01-23 11:34 → 2N 01-24 10:33
PROVIDERS: Emergency Medicine; Internal Medicine Pulmonary Disease; Nurse Practitioner Family; ADMIT Hospitalist; ATTEND Hospitalist
DX: A41.9 Sepsis, unspecified organism (principal); I50.33 Acute on chronic diastolic (congestive) heart failure; J18.9 Pneumonia, unspecified organism; J96.21 Acute and chronic respiratory failure with hypoxia; J44.1 Chronic obstructive pulmonary disease with (acute) exacerbation; G93.40 Encephalopathy, unspecified; F11.20 Opioid dependence, uncomplicated; J44.0 Chronic obstructive pulmonary disease with (acute) lower respiratory infection; I13.0 Hypertensive heart and chronic kidney disease with heart failure and stage 1 through stage 4 chronic kidney disease, or unspecified chronic kidney disease; R65.20 Severe sepsis without septic shock; F41.9 Anxiety disorder, unspecified; G89.29 Other chronic pain; K21.9 Gastro-esophageal reflux disease without esophagitis; N18.9 Chronic kidney disease, unspecified; M19.90 Unspecified osteoarthritis, unspecified site; Z96.652 Presence of left artificial knee joint; I48.91 Unspecified atrial fibrillation; F32.9 Major depressive disorder, single episode, unspecified; F17.210 Nicotine dependence, cigarettes, uncomplicated; E78.5 Hyperlipidemia, unspecified; D64.9 Anemia, unspecified; D69.6 Thrombocytopenia, unspecified; M25.569 Pain in unspecified knee; E66.9 Obesity, unspecified; R40.0 Somnolence; T40.605A Adverse effect of unspecified narcotics, initial encounter; T42.4X5A Adverse effect of benzodiazepines, initial encounter; K59.00 Constipation, unspecified; Z20.822 Contact with and (suspected) exposure to COVID-19; Z86.010 Personal history of colon polyps; Z82.49 Family history of ischemic heart disease and other diseases of the circulatory system; Z88.8 Allergy status to other drugs, medicaments and biological substances; Z83.3 Family history of diabetes mellitus; Z68.32 Body mass index [BMI] 32.0-32.9, adult; Z99.81 Dependence on supplemental oxygen; Y92.89 Other specified places as the place of occurrence of the external cause; Z90.710 Acquired absence of both cervix and uterus; Z95.1 Presence of aortocoronary bypass graft; Z88.1 Allergy status to other antibiotic agents; Z88.2 Allergy status to sulfonamides; Z79.82 Long term (current) use of aspirin; Z79.899 Other long term (current) drug therapy
CPT/HCPCS: 10081; 10203; 27000; 50455; 62110; 62900; 70005

== ENCOUNTER → 2021-02-04 | Outpatient (CLI) | payer OTHER ==
[~2021-02-04] MED LIST changes: +BAYER CHEWABLE81 MG PO; +CIPROFLOXACIN500 M1 PO; +NORVASC10 MG PO; +ROXICODONE15 MG PO
== END ==
LOC: SJCVC 09:15
PROVIDERS: ATTEND Internal Medicine Cardiovascular Disease
DX: I48.11 Longstanding persistent atrial fibrillation (principal); I44.2 Atrioventricular block, complete; I11.0 Hypertensive heart disease with heart failure; I51.0 Cardiac septal defect, acquired; J44.9 Chronic obstructive pulmonary disease, unspecified; G47.33 Obstructive sleep apnea (adult) (pediatric); Z79.899 Other long term (current) drug therapy; Z87.891 Personal history of nicotine dependence; Z79.82 Long term (current) use of aspirin; Z95.0 Presence of cardiac pacemaker; Z88.2 Allergy status to sulfonamides

== ENCOUNTER → 2021-05-01 | Outpatient (CLI) | payer OTHER | LOC: RAD 12:33 | PROVIDERS: ATTEND Internal Medicine Pulmonary Disease | DX: R06.00 Dyspnea, unspecified (principal) ==